=== PATIENT | female | born 1935 | race Caucasian/White ===

== ENCOUNTER → 2016-04-04 | Outpatient (CLI) | payer OTHER ==
[~2016-04-04] MED LIST: AMPH20CA3 PO; ASPI81TA28 PO; BROM0.07 OPL; BUPR-79 PO; BUPR100T8 PO; CHOL100010 PO; CLC100X PO; CLOB-65 EXT; CLOP1TAB15 PO; DRGTP75 TD; DYZ PO; FENT75DI17 TD; FLUO20CA35 PO; FLUO40CA8 PO; FURO-85 PO; ISOS60TA25 PO; LEVO125T72 PO; LISI-461 PO; LORA-741 PO; LSN25 PO; METO25TA3 PO; MRLP17 PO; NTRGSL/4 UT; NYST80OI TOP; POTA10CA28 PO; PRED1SUS OPL; PRLSR20 PO; SIMV40TA2 PO; TRAM-10 PO; TRIA0.1C20 TOP
--- NOTE | 2016-04-05 06:38 | PAP/PSG TECHNICIAN REPORT ---
[facility] Compressor Operator Adjuster Polysomnogram Report Study name: None Report date: 04/05/2016 Study date: 04/04/2016 Referring Physician: Mabel Witt M.D. Name: MICHEL RIVERA Interpreting Physician: Willam Witt M.D. Date of : 1935 Compressor Operator Adjuster: Kimberly Huynh [facility]. Sex: Female Age: 80 StudyType: PSG PAP Weight: 243 lbs Height: 80 years, Height 5' 2" Neck Circum: BMI: 44.44 Medications: nitroglycerin 0.4 mg, lisinopril 10 mg, fentanyl 75 mcg/hr, clopidogrel 75 mg, bupropion 150 mg, fluoxetine 20 mg, levothyroxine 125 mcg, omeprazole 20 mg, simvastatin 40 mg, tramadol 50 mg, lorazepam 0.5 mg, clobetasol propionate 0.05% ex oint, vit d 1000 units, triamcinolone acetonide 0.1% ex lotn, stool softener 100 mg, aspirin 81 mg, prozac 40 mg, isoorbide mononitrate 30 mg Patient History 80 yr-old female here for an updated CPAP treatment study to determine if patient needs supplemental oxygen. Patient has been on CPAP since 02/2014. Parameters Monitored NPSG: E1-M2, E2-M1, Fp1-M2, Fp2-M1, F3-M2, F4-M2, F4-M1, C3-M2, C4-M2, C4-M1, O1-M2, O2-M2, O2-M1, T3-M2, T4-M1, P3-M2, P4-M1, CHIN1, CHIN2, HR, EKG, Legs, PFLOW, SNOR, FLOW, CFLOW, Tidal Volume, THOR, ABDO, SpO2, PLTH, CPRESS, ETCO2 Wave, ETCO2, pH Sleep Architecture Sleep Stages Time at Lights Off 9:55:30 PM STAGES Time (min.) TST (%) Time at Lights On 5:44:00 AM Wake 53.5 -- Total Recording Time (TRT) 469.00 min. N1 69.5 17 Total Sleep Period (TSP) 459.5 min. N2 338.5 82 Total Sleep Time (TST) 415.0min. N3 0.0 0 Awake Time 53.5 min. REM 7.0 2 Wake after Sleep Onset 44.5 min. Sleep Efficiency (SE) 89 % Sleep Onset Latency (JACKIE) 9.0 min. Number of Stage 1 Shifts None Awakenings 35 Stage Changes 196 Number of REM periods 2 REM 7.0 2 REM Latency 372.0 min. NREM 408.0 98 Body Position Analysis Supine Right Left Side Prone Vertical Total Sleep Time (min.) 0.0 415.0 0.0 415.00 0.0 0.3 Total Sleep Time (%) 0% 100% 0% 100 0% N/A% Total Sleep Time REM (min.) 0.0 7.0 0.0 None 0.0 0.0 Total Sleep Time NREM (min.) 0.0 408.0 0.0 None 0.0 0.0 Intermittent Wake (min.) 0.0 53.2 0.0 None 0.0 0.3 Total Sleep Period (%) 0% None None None None None Arousals Myoclonus (PLM) * Events Count Index Events Count Index Spontaneous 50 7 Events Awake (PLMW) 31 34.8 Respiratory 0 0.0 Events Asleep w/ Arousal (PLMA) 36 5.2 PLM 35 5 Events Asleep w/o Arousal (PLMS) 42 6.1 Snoring 19 3 Total Asleep 78 11.3 Total 104 15 Total 109 14 Respiratory Analysis * CA OA MA CH H RERA Total Count 1 1 0 0 12 0 14 Index 0.1 0.1 0.0 0 1.7 0 2.0 Mean Duration 10.0 14.3 0.0 0.00 19.0 0.0 18.0 Longest Duration 10.0 14.3 0.0 0.00 0.0 0.0 38.7 Respiratory Event Summary Total Supine ~Supine Right Left Prone REM NREM Apneas Count 2 N/A 2 2 N/A N/A 0 2 Index 0.3 N/A 0 0.3 N/A N/A 0 0 Hypopneas (4% Desat) Count 12 N/A 12 12 N/A N/A 0 12 Index 1.7 N/A 2 1.7 N/A N/A 0.0 1.8 Apneas & All Hypopneas Count 14 N/A 14 14 N/A N/A 0 14 Index 2.0 N/A 2 2 N/A N/A 0.0 2.1 Respiratory Events (Evs Tech+All Hyp+RERA) Count 14 N/A 14 14 N/A N/A 0 14 Index 2.0 N/A 2 2.0 N/A N/A 0.0 2.1 Respiratory Related Arousal Count 0 N/A 0 0 N/A N/A 0 0 Index 0.0 N/A 0 0 N/A N/A 0 0 Snoring Analysis Supine Right Left Prone REM NREM Total Snore duration 3.7 min Snores count N/A 88 N/A N/A 0 88 88 Snore mean duration 2.5 Sec Snores index N/A 13 N/A N/A 0.0 12.9 12.7 TST with snoring (%) 0.9% Desaturation Event Summary: Minimum %SpO2 Event Count Mean/Min/Max Duration(sec.) Desaturation Index % Time In Bed > 90 36 18.6 / 8.0 / 52.5 7.9 58.8 86 - 90 2 14.5 / 13.3 / 15.8 0.6 41.2 81 - 85 0 N/A 0.0 0.0 76 - 80 0 N/A 0.0 0.0 71 - 75 0 N/A 0.0 0.0 66 - 70 0 N/A 0.0 0.0 61 - 65 0 N/A 0.0 0.0 56 - 60 0 N/A 0.0 0.0 51 - 55 0 N/A 0.0 0.0 < 50 0 N/A 0.0 0.0 Total REM NREM Awake <50% 0.0 min. 0.0 min. 0.0 min. 0.0 min. 51 - 60% 0.0 min. 0.0 min. 0.0 min. 0.0 min. 61 - 70% 0.0 min. 0.0 min. 0.0 min. 0.0 min. 71 - 80% 0.2 min. 0.0 min. 0.0 min. 0.2 min. 81 - 90% 190.8 min. 1.7 min. 176.5 min. 12.7 min. 91 - 100% 272.5 min. 5.3 min. 231.6 min. 35.7 min. Average 91 91 91 92 Minimum SpO2 60 89 87 60 Desaturation Event Index 4.6 0.0 4.6 6.7 # Desat. Events below 89% 6 N/A 5 1 Time(%) with Saturation below 89% 1.0 0.0 0.9 0.1 Time(min.) with Saturation below 89% 4.7 0.0 4.4 0.4 Heart Rate Analysis End Tidal CO2 Analysis Min (bpm) Max (bpm) Average (bpm) TSP (mins) % of TSP Awake 58 127 65 Above 55 mmHg 0.0 0.0 NREM 53 71 62 50-55 mmHg 415.0 100.0 REM 60 63 62 45-50 mmHg 0.0 0.0 Overall 53 71 62 40-45 mmHg 0.0 0.0 35-40 mmHg 0.0 0.0 30-35 mmHg 0.0 0.0 Average ETCO2 0.0 Supplemental O2 Values Minimum O2 level: None Value Start Time End Time Compressor Operator Adjuster Comments MS. Rivera slept in the righ position. No cardiac arrhythmia .PLMs noted. No bruxism noted. CPAP was initiated at +7 CMH2O and up-titrated to a level of +8 CMH2O no Cflex, which nearly eliminated all respiratory events and snoring. A small [employer] Simplus was used during titration.MS. Rivera awoke to use the restroom once during the night. MS. Rivera stated, that was a normal night, I usually get up more to pee. The final report will be interpreted and signed by a sleep physician. The completed physician report will then be placed in the patient medical record. Therapy Event: Therapy (cm H20) 7 8 Total Time at Pressure (min.) 41.9 426.6 TST at Pressure (min.) 31.9 383.1 # Periods 1 1 Sleep Onset (min.) 9.0 0.0 REM Onset (min.) N/A 339.1 Sleep Efficiency % 76 89 Wakefulness (%) 23.9 10.2 Wakefulness (min.) 10.0 43.5 NREM 1 (%) 21.5 14.2 NREM 1 (min.) 9.0 60.5 NREM 2 (%) 54.6 74.0 NREM 2 (min.) 22.9 315.6 NREM 3 (%) 0.0 0.0 NREM 3 (min.) 0.0 0.0 REM (%) 0.0 1.6 REM (min.) 0.0 7.0 # Arousals 9 95 Arousal Index 16.9 14.9 # Snore 7 81 Snore Index 13.2 12.7 AHI 9.4 1.4 AHI Supine N/A N/A AHI Non-Supine 9.4 1.4 NREM AHI 9.4 1.4 REM AHI N/A 0.0 RDI 9.4 1.4 # Obstructive 0 1 # Central Ap 0 1 # Mixed 0 0 # Hypopneas 5 7 RERAS 0 0 Total Respiratory Events 5 9 Time Below SpO2 89.00% (min.) 2.4 2.0 Mean NREM SpO2 (%) 90 91 Mean REM SpO2 (%) N/A 91 Mean Sleep SpO2 (%) 90 91 Min NREM SpO2 (%) 87 87 Min REM SpO2 (%) N/A 89 Position Supine (min.) 0.0 0.0 Position Non-supine (min.) 31.9 383.1 LM Index Sleep 5.6 11.7 LM Index NREM 5.6 12.0 LM Index REM N/A 0.0 Mean Heart Rate (bpm) 64 62 Min Heart Rate (bpm) 58 53
--- NOTE | 2016-04-16 16:43 | POLYSOMNOGRAPH REPORT ---
REFERRING PERSON: Dr. Mike Witt. SOOT BLOWER: Kimberly Huynh. Ms. Quiñones is a 80-year-old female sent to the sleep lab for a CPAP titration study. She has been on CPAP since February 2014. She has been using CPAP at a pressure of 7 at home. Multiple n.p.o. done on CPAP at a pressure of 7 with confirmed CPAP compliance, have suggested nocturnal hypoxemia. She is sent to the sleep lab for titration and oxygen titration if necessary. Her [place] sleepiness scale score on the evening of this study is not recorded. BMI is 44.44. Following the technical and digital specifications of the [place] [employer] (AASM) a standard diagnostic polysomnogram was performed monitoring EEG, EOG, EMG (chin and leg deviations), oxygen saturation, body position, digital video, respiratory effort and airflow.? The sleep Stage and event scoring was based on the AASM Manual for the Scoring of Sleep and Associated Events 2007 edition.? Apneas are defined as a drop in the peak thermal sensor excursion by >90% of baseline for at least 10 seconds.? Hypopneas were scored using the 4% oxygen desaturation rule (4A-Medicare) and a decrease in the nasal pressure excursions by >30% of baseline for at least 10 seconds.? Respiratory effort-related arousal (RERA's) is defined as a sequence of breaths lasting at least 10 seconds characterized by increasing respiratory effort or flattening of the nasal pressure waveform leading to an arousal from sleep when the sequence of breaths does not meet criteria for an apnea or hypopnea.? Apnea Hypopnea index (AHI) is defined as the number of apneas and hypopneas occurring in an hour of sleep.? Respiratory disturbance index (RDI) is defined as the number of apneas, hypopneas, and RERA's occurring in an hour of sleep. Ms. Quiñones's total sleep period time was 459.5 minutes. Total sleep time was 415 minutes. Sleep efficiency was 89%. Latency to sleep onset was 9 minutes with wake after sleep onset of 44.5 minutes. Total non-REM sleep time was 408 minutes. She spent 17% of that time in N1 sleep, 82% in N2 sleep and no time in N3 sleep. REM latency was prolonged at 372 minutes. Total REM sleep time was only 7 minutes or 2% of the recorded time. There were 104 cortical arousals from sleep. No respiratory arousals were noted, 35 periodic limb movement arousals were noted and 19 snoring arousals were noted. 58 arousals were spontaneous. There were 78 periodic limb movements noted on this test. Limb movement index was 11.3. Limb movement with arousal index was 5.2. There was 1 obstructive, 1 central and no mixed apneas on this titration. There were 12 hypopnea. Apnea-hypopnea index was 2. 88 snoring events were recorded. Total sleep time with snoring was 0.9%. Mean saturation was 91% with desaturations less than 89% for only 4.7 minutes of total recorded time. There was no cardiac ectopy noted on this study. During sleep, this patient's heart rate ranged from a low of 53 beats per minute to a high of 71 beats per minute. As stated above, this was a CPAP titration study. The titration was begun on a CPAP pressure of 7, which was what she used at home. Five hypopneas were noted on this pressure and then her pressure was increased to 8. She remained on a pressure of 8 for 383.1 minutes of sleep time. There were 7 minutes of REM sleep on this pressure, which was the entire REM sleep duration, none of which was supine. AHI and RDI on this pressure were both 1.4 and saturations on this pressure were only less than 89% for 2 minutes. IMPRESSION AND PLAN: A 80-year-old female who appears to do well on CPAP at a pressure of 8. This polysomnogram does not suggest nocturnal hypoxemia on this pressure.
== END | disposition home or self-care (01) ==
LOC: C.NEUR 21:00
PROVIDERS: ATTEND Family Medicine
DX: G47.33 Obstructive sleep apnea (adult) (pediatric) (principal)

== ENCOUNTER → 2016-10-01 | Day surgery (SDC) | payer OTHER ==
[2016-09-11 11:21] VITALS: Ht 162.6 cm; Wt 106.8 kg
[~2016-10-01] VITALS: Ht 162.6 cm; Wt 106.8 kg
[~2016-10-01] MED LIST changes: +500ML BSS 0.3ML EPI 1:1000PF IRRIG ONE; +ACETAMINOPHEN 325 MG TAB PO PRN; -AMPH20CA3 PO; +AMVISC PLUS 0.8ML SYRINGE INT OCU ONE; +ATROPINE SULFATE 0.1 MG/ML 5ML SYR IV PRN; +BRIMONIDINE TART 0.2% OP SOLN PER DROP CHARGE ONE; +BSS FLUSH ONE; -BUPR-79 PO; -CLOB-65 EXT; -DYZ PO; +ENDOCOAT 0.85ML SYRINGE INT OCU ONE; +EpHEDrine SULFATE INJ 50 MG/ML AMP IV PRN; +EpINEphrine INJ 1MG/ML AMP 1 MG/ML AMP ONE; -FENT75DI17 TD; +KETOROLAC 0.5% OP SOLN PER DROP CHARGE OPL SCH; +LACTATED RINGER'S 1000ML 500 ML IV SCH; +LIDOCAINE 4% OP SOLN DROP CHARGE ONE; +LIDOCAINE 4% OP SOLN DROP CHARGE OPL SCH; +LIDOCAINE HCL 1% MPF 2 ML VIAL ONE; -LSN25 PO; +MIDAZOLAM HCL 1 MG/ML 2ML VIAL ONE; +MOXIFLOXACIN OPH SOLN PER DROP CHARGE ONE; -MRLP17 PO; +ONDANSETRON INJ 2 MG/ML 2 ML VIAL IV PRN; +POVIDONE-IODINE OP SOLN 30 ML BTL ONE; +PROPARACAINE 0.5% OP SOLN PER DROP CHARGE OPL SCH; +TOBRAMYCIN/DEXAMETHASONE OPH OINT PER APPLN CHARGE ONE; -TRIA0.1C20 TOP; +[UNRECOGNIZED DRUG - REMARK] SCH
--- NOTE | 2016-10-01 08:00 | History & Physical Bridge - SC ---
H&P Re-Evaluation Bridge Note: I have examined the patient, reviewed the History & Physical and in the interval since the performance of the History & Physical I have noted the following changes of clinical significance: No changes noted
[2016-10-01] MEDS: PHENYLEPHRINE HCL 2.5% OP SOLN PER DROP CHARGE OPL SCH ×2 (08:01→08:06)
[2016-10-01] MEDS: TROPICAMIDE 1% OP SOLN PER DROP CHARGE OPL SCH ×2 (08:02→08:07)
[2016-10-01] MEDS: CYCLOPENTOLATE HCL 1% OP SOLN PER DROP CHARGE OPL SCH ×2 (08:03→08:08)
[2016-10-01] MEDS: MOXIFLOXACIN OPH SOLN PER DROP CHARGE OPL SCH ×2 (08:04→08:14)
--- NOTE | 2016-10-01 08:52 | Discharge Instructions-SurgCtr ---
Discharge Instructions Date of Service Oct 01, 2016. Visit Reason for Visit: Cataract Left Eye Discharge Discharge Diagnosis / Problem: cataract left eye Discharge Goals Goal(s): Improve function Medications Stopped Medications Name(s): Pt. was told not to take Plavix or ASA today. Activity Recommendations Activity Limitations: per Instructions/Follow-up section Lifting Limitations: no more than 5 pounds Anesthesia . Post Anesthesia Instructions: If you have had General Anesthesia or IV Sedation: * Do not drive today. * Resume driving when surgeon permits. * Do not make important decisions or sign legal documents today. * Call surgeon for: 1. Temperature elevations greater than 101 degrees F. 2. Uncontrollable pain. 3. Excessive bleeding. 4. Persistent nausea and vomiting. 5. Medication intolerance (nausea, vomiting or rash). * For nausea and vomiting use only clear liquids such as: tea, soda, bouillon until nausea subsides, then gradually increase diet as tolerated. * If you have any concerns or questions, call your surgeon's office. If physician is unavailable and it is an emergency, call 911 or go to the nearest emergency room. . Instructions / Follow-Up Instructions / Follow-Up ACTIVITY RECOMMENDATIONS: * Light activities * You may walk outside, read, watch television. * Mild irritation and blurred vision are common for the first few days, redness around the white part of the eye is common. MEDICATIONS: Resume previous medications unless instructed otherwise by your surgeon. Eye drops (today and tomorrow): Cipro - one drop in operative eye every 2 hours while awake Prednisolone 1% - one drop in operative eye every 2 hours while awake Prolensa - one drop operative eye 1 times daily SPECIAL CARE INSTRUCTIONS: * If any problems or concerns, please call Dr. Merritt's office at . * Keep plastic shield taped over eye to sleep at night. * Keep plastic shield taped over eye except to administer eye drops. * Keep plastic shield on until office visit the following day. FOLLOW UP VISIT: Follow-up with Dr. Merritt in the [place] office as scheduled. If not already scheduled, please call the office at . Diet Recommendations Home Diet: resume previous diet Procedures Procedures Performed: Left Cataract Phacoemulsification With Intraocular Lens Implant Pending Studies Studies pending at discharge: no Medical Emergencies . Who to Call and When: Medical Emergencies: If at any time you feel your situation is an emergency, please call 911 immediately. . Non-Emergent Contact Non-Emergency issues call your: Zipper Setter Lockstitch . . "Provider Documentation" section prepared by Oliver Merritt. .
--- NOTE | 2016-10-01 08:54 | [facility] Operative Report ---
Operative Report Operative Date Oct 01, 2016. Pre-Operative Diagnosis Left Eye Cataract Post-Operative Diagnosis same Procedure(s) Performed Left Cataract Phacoemulsification With Intraocular Lens Implant Surgeon Dr. Loulou Merritt Welding Tester Surgeon(s) 0 Estimated Blood Loss 0 Findings cataract left eye Fluids (cc crystalloids) see anesthesia record Specimens none Drains none Anesthesia local with sedation Complication(s) None Disposition Recovery Room / PACU Implants mx60 26.5 Indications decreased vision left eye Description of Procedure After informed consent was obtained in the holding area the patient was wheeled back to the operating room where cardiac monitoring leads and oxygen by nasal cannula was administered by Anesthesia. Gentle IV sedation was given, and the patient's left eye was prepped and draped in usual sterile fashion. A wire lid speculum was placed into the left eye and the operating microscope was swung into position. Using 0.12 forceps and a Supersharp blade a paracentesis port was made 3 o'clock hours away from the 3 o'clock position of the patient's left eye. 1% non-preserved Lidocaine was then injected into the anterior chamber for anesthesia. A 2.0 mm keratotome blade was then used to make a shelved clear corneal incision at the 3 o'clock position of the left eye. Amvisc was injected into the anterior chamber and a cystotome and Utrata forceps were used to perform a curvilinear capsulorrhexis. BSS on a hydrodissection cannula was used to hydrodissect the lens nucleus away from the capsular bag. The phacoemulsification handpiece was then used in a stop and chop fashion to remove the lens nucleus. The irrigation and aspiration handpiece was then used to remove the residual cortical material. Amvisc was injected into the capsular bag and anterior chamber and a Bausch & Lomb MX60 26.5 Diopter intraocular lens was injected into the capsular bag. Irrigation and aspiration handpiece was used to remove the residual viscoelastic material. The wounds were hydrated and noted to be watertight. The wire lid speculum was removed from the eye. Vigamox, Brimonidine, and TobraDex ointment were placed on the eye and it was shielded. It should be noted that EndoCoat was used extensively during the case to protect the cornea endothelium. DISPOSITION: The patient tolerated the procedure well and was wheeled to the post anesthesia care unit in stable condition. I attest to the content of the Intraoperative Record and any orders documented therein. Any exceptions are noted below. I attest to the content of the Intraoperative Record and any orders documented therein. Any exceptions are noted below.
[2016-10-01 09:00] VITALS: TEMP 36.5
[2016-10-01 09:22] VITALS: BP 137/64; PULSE 64; O2SAT 94
--- NOTE | 2016-10-01 09:24 | Anesthesia Progress Nt - [facility] ---
Anesthesia Post Op Note Date & Time Oct 01, 2016 at 09:23 Vital Signs Pain Intensity: 0 Vital Signs Past 12 Hours Date Time Temp Pulse Resp B/P (MAP) Pulse Ox O2 Delivery O2 Flow Rate FiO2 10/01/16 09:22 64 16 137/64 (88) 94 Room Air 10/01/16 09:00 36.5 62 16 135/84 (101) 93 Room Air 10/01/16 07:44 36.8 66 20 144/82 (102) 92 Room Air Notes Mental Status: alert / awake / arousable, participated in evaluation Pt Amnestic to Procedure: Yes Nausea / Vomiting: adequately controlled Pain: adequately controlled Airway Patency, RR, SpO2: stable & adequate BP & HR: stable & adequate Hydration State: stable & adequate Anesthetic Complications: no major complications apparent
== END | disposition home or self-care (01) ==
LOC: X.SURG 07:17
PROVIDERS: ATTEND Ophthalmology
DX: H25.12 Age-related nuclear cataract, left eye (principal); K21.9 Gastro-esophageal reflux disease without esophagitis; E07.9 Disorder of thyroid, unspecified; I10 Essential (primary) hypertension; I51.9 Heart disease, unspecified; Z79.899 Other long term (current) drug therapy

== ENCOUNTER → 2016-10-15 | Day surgery (SDC) | payer OTHER ==
[2016-10-11 13:27] VITALS: Ht 162.6 cm; Wt 106.8 kg
[~2016-10-15] VITALS: Ht 162.6 cm; Wt 106.8 kg
[~2016-10-15] MED LIST changes: -KETOROLAC 0.5% OP SOLN PER DROP CHARGE OPL SCH; -LIDOCAINE 4% OP SOLN DROP CHARGE OPL SCH; +LIDOCAINE 4% OP SOLN DROP CHARGE OPR SCH; -ONDANSETRON INJ 2 MG/ML 2 ML VIAL IV PRN; -PROPARACAINE 0.5% OP SOLN PER DROP CHARGE OPL SCH; +PROPARACAINE 0.5% OP SOLN PER DROP CHARGE OPR SCH; -[UNRECOGNIZED DRUG - REMARK] SCH
[2016-10-15] MEDS: PHENYLEPHRINE HCL 2.5% OP SOLN PER DROP CHARGE OPR SCH ×2 (09:26→09:31)
[2016-10-15] MEDS: TROPICAMIDE 1% OP SOLN PER DROP CHARGE OPR SCH ×2 (09:27→09:32)
[2016-10-15] MEDS: CYCLOPENTOLATE HCL 1% OP SOLN PER DROP CHARGE OPR SCH ×2 (09:28→09:33)
[2016-10-15] MEDS: KETOROLAC 0.5% OP SOLN PER DROP CHARGE OPR SCH ×2 (09:29→09:34)
[2016-10-15] MEDS: MOXIFLOXACIN OPH SOLN PER DROP CHARGE OPR SCH ×2 (09:30→09:42)
[2016-10-15 10:27] VITALS: TEMP 36.7
--- NOTE | 2016-10-15 10:27 | Discharge Instructions-SurgCtr ---
Discharge Instructions Date of Service Oct 15, 2016. Visit Reason for Visit: Cataract Right Eye Discharge Discharge Diagnosis / Problem: cataract right eye Discharge Goals Goal(s): Improve function Activity Recommendations Activity Limitations: per Instructions/Follow-up section Lifting Limitations: no more than 5 pounds Anesthesia . Post Anesthesia Instructions: If you have had General Anesthesia or IV Sedation: * Do not drive today. * Resume driving when surgeon permits. * Do not make important decisions or sign legal documents today. * Call surgeon for: 1. Temperature elevations greater than 101 degrees F. 2. Uncontrollable pain. 3. Excessive bleeding. 4. Persistent nausea and vomiting. 5. Medication intolerance (nausea, vomiting or rash). * For nausea and vomiting use only clear liquids such as: tea, soda, bouillon until nausea subsides, then gradually increase diet as tolerated. * If you have any concerns or questions, call your surgeon's office. If physician is unavailable and it is an emergency, call 911 or go to the nearest emergency room. . Instructions / Follow-Up Instructions / Follow-Up ACTIVITY RECOMMENDATIONS: * Light activities * You may walk outside, read, watch television. * Mild irritation and blurred vision are common for the first few days, redness around the white part of the eye is common. MEDICATIONS: Resume previous medications unless instructed otherwise by your surgeon. Eye drops (today and tomorrow): Cipro - one drop in operative eye every 2 hours while awake Prednisolone 1% - one drop in operative eye every 2 hours while awake Prolensa - one drop operative eye 1 times daily SPECIAL CARE INSTRUCTIONS: * If any problems or concerns, please call Dr. Merritt's office at . * Keep plastic shield taped over eye to sleep at night. * Keep plastic shield taped over eye except to administer eye drops. * Keep plastic shield on until office visit the following day. FOLLOW UP VISIT: Follow-up with Dr. Merritt in the [place] office as scheduled. If not already scheduled, please call the office at . Diet Recommendations Home Diet: resume previous diet Procedures Procedures Performed: Right Cataract Phacoemulsification With Intraocular Lens Implant Pending Studies Studies pending at discharge: no Medical Emergencies . Who to Call and When: Medical Emergencies: If at any time you feel your situation is an emergency, please call 911 immediately. . Non-Emergent Contact Non-Emergency issues call your: Beverage Inspection Machine Tender . . "Provider Documentation" section prepared by Oliver Merritt. .
--- NOTE | 2016-10-15 10:29 | [facility] Operative Report ---
Operative Report Operative Date Oct 15, 2016. Pre-Operative Diagnosis Right Eye Cataract Post-Operative Diagnosis Same Procedure(s) Performed Right Cataract Phacoemulsification With Intraocular Lens Implant Surgeon Dr Merritt Estimate Clerk Surgeon(s) None Estimated Blood Loss 0ml Findings cataract right eye Fluids (cc crystalloids) see anesthesia record Specimens None Drains none Anesthesia local with sedation Complication(s) None Disposition Recovery Room / PACU Implants mx60 26.0 Indications decreased vision right eye Description of Procedure After informed consent was obtained in the holding area the patient was wheeled back to the operating room where cardiac monitoring leads and oxygen by nasal cannula was administered by Anesthesia. Gentle IV sedation was given, and the patient's right eye was prepped and draped in usual sterile fashion. A wire lid speculum was placed into the right eye and the operating microscope was swung into position. Using 0.12 forceps and a Supersharp blade a paracentesis port was made 2 o'clock hours away from the 9 o'clock position of the patient's right eye. 1% non-preserved Lidocaine was then injected into the anterior chamber for anesthesia. A 2.0 mm keratotome blade was then used to make a shelved clear corneal incision at the 9 o'clock position of the right eye. Amvisc was injected into the anterior chamber and a cystotome and Utrata forceps were used to perform a curvilinear capsulorrhexis. BSS on a hydrodissection cannula was used to hydrodissect the lens nucleus away from the capsular bag. The phacoemulsification handpiece was then used in a stop and chop fashion to remove the lens nucleus. The irrigation and aspiration handpiece was then used to remove the residual cortical material. Amvisc was injected into the capsular bag and anterior chamber and a Bausch & Lomb MX60 26.0 Diopter intraocular lens was injected into the capsular bag. Irrigation and aspiration handpiece was used to remove the residual viscoelastic material. The wounds were hydrated and noted to be watertight. The wire lid speculum was removed from the eye. Vigamox, Brimonidine, and TobraDex ointment were placed on the eye and it was shielded. It should be noted that EndoCoat was used extensively during the case to protect the cornea endothelium. DISPOSITION: The patient tolerated the procedure well and was wheeled to the post anesthesia care unit in stable condition. I attest to the content of the Intraoperative Record and any orders documented therein. Any exceptions are noted below. I attest to the content of the Intraoperative Record and any orders documented therein. Any exceptions are noted below.
[2016-10-15 10:52] VITALS: BP 138/75; PULSE 62; O2SAT 97
--- NOTE | 2016-10-15 11:01 | Anesthesia Progress Nt - [facility] ---
Anesthesia Post Op Note Date & Time Oct 15, 2016 at 10:59 Vital Signs Pain Intensity: 0 Vital Signs Past 12 Hours Date Time Temp Pulse Resp B/P (MAP) Pulse Ox O2 Delivery O2 Flow Rate FiO2 10/15/16 10:52 62 18 138/75 (96) 97 Room Air 10/15/16 10:27 36.7 57 18 131/77 (95) 99 Room Air 10/15/16 09:17 36.9 61 18 120/74 (89) 95 Room Air Notes Mental Status: alert / awake / arousable, participated in evaluation Pt Amnestic to Procedure: No Nausea / Vomiting: adequately controlled Pain: adequately controlled Airway Patency, RR, SpO2: stable & adequate BP & HR: stable & adequate Hydration State: stable & adequate Anesthetic Complications: no major complications apparent Non distressing recall as discussed preop. Patient did have some bleeding on to her shirt from a missed IV placed preop. The site had been appropriately dressed and there was some mild non painful bleeding around it. We did offer to pay her drycleaning which she declined.
== END | disposition home or self-care (01) ==
LOC: X.SURG 08:54
PROVIDERS: ATTEND Ophthalmology
DX: H25.11 Age-related nuclear cataract, right eye (principal); E07.9 Disorder of thyroid, unspecified; K21.9 Gastro-esophageal reflux disease without esophagitis; I51.9 Heart disease, unspecified; Z79.899 Other long term (current) drug therapy; Z79.82 Long term (current) use of aspirin

== ENCOUNTER 2016-12-05 16:33 | Emergency (ER) | payer OTHER ==
[~2016-12-05] VITALS: Ht 162.6 cm; Wt 109.9 kg
[~2016-12-05 16:33] MED LIST changes: -500ML BSS 0.3ML EPI 1:1000PF IRRIG ONE; -ACETAMINOPHEN 325 MG TAB PO PRN; -AMVISC PLUS 0.8ML SYRINGE INT OCU ONE; -ATROPINE SULFATE 0.1 MG/ML 5ML SYR IV PRN; -BRIMONIDINE TART 0.2% OP SOLN PER DROP CHARGE ONE; -BSS FLUSH ONE; -ENDOCOAT 0.85ML SYRINGE INT OCU ONE; -EpHEDrine SULFATE INJ 50 MG/ML AMP IV PRN; -EpINEphrine INJ 1MG/ML AMP 1 MG/ML AMP ONE; -LACTATED RINGER'S 1000ML 500 ML IV SCH; -LIDOCAINE 4% OP SOLN DROP CHARGE ONE; -LIDOCAINE 4% OP SOLN DROP CHARGE OPR SCH; -LIDOCAINE HCL 1% MPF 2 ML VIAL ONE; -MIDAZOLAM HCL 1 MG/ML 2ML VIAL ONE; -MOXIFLOXACIN OPH SOLN PER DROP CHARGE ONE; -POVIDONE-IODINE OP SOLN 30 ML BTL ONE; -PROPARACAINE 0.5% OP SOLN PER DROP CHARGE OPR SCH; -TOBRAMYCIN/DEXAMETHASONE OPH OINT PER APPLN CHARGE ONE
[2016-12-05 16:39] VITALS: TEMP 36.9; Ht 162.6 cm; Wt 109.9 kg
[2016-12-05] MEDS ORDERED: OXYCODONE HCL IR 5 MG TAB (IMMEDIATE RELEASE) PO STA (16:52)
--- NOTE | 2016-12-05 17:07 | EMERGENCY ROOM VISIT NOTE ---
History Report prepared by Radha: Kaci Vera Under the Supervision of: Dr. Wali Zuleta D.O. 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 She put her crutch down and turned around to hang her keys up. While she was turning back around she felt herself started to lose her balance. She tried to hold onto a nearby small table which was wobbly and she fell to the ground. The table hit the top of her head. She fell onto her right side. She reports right shoulder pain which goes up into her neck and down her arm. She reports right knee pain and left hand pain. She denies any LOC, left shoulder pain, left knee pain, right hand pain, or chest pain. 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 Pt denies left shoulder pain, left knee pain, or right hand pain. Review of Systems See HPI for pertinent positives & negatives. A total of 10 systems reviewed and were otherwise negative. Past Medical & Surgical Surgical Problems: (1) History of cholecystectomy Family History Hypertension Social History Smoking Status: Never Smoker Alcohol Use: none Drug Use: none Marital Status: Housing Status: lives alone Occupation Status: retired Current/Historical Medications Scheduled Aspirin (Aspirin Ec), 81 MG PO QAM Bupropion (Wellbutrin Sr), 100 MG PO QAM Cholecalciferol (Vitamin D), 1,000 UNIT PO QAM Clopidogrel (Plavix), 75 MG PO QAM Docusate Sodium (Colace), 1 CAP PO BID Fentanyl (Fentanyl), 1 PATCH TD [id number] Fluoxetine (Prozac), 40 MG PO QAM Fluoxetine (Prozac), 20 MG PO QPM Furosemide (Lasix), 20 MG PO QAM Isosorbide Mononitrate Ext Rel (Imdur Ext Rel), 60 MG PO QAM Levothyroxine Sodium (Synthroid), 125 MCG PO QAM Lisinopril (Zestril), 10 MG PO QAM Metoprolol Succ (Toprol Xl) (Toprol-Xl), 12.5 MG PO QAM Nitroglycerin (Nitrostat), 0.4 MG UT PRN Omeprazole (Prilosec), 20 MG PO QAM Potassium Chloride (Micro-K Ext Rel), 10 MEQ PO QAM Simvastatin (Zocor), 40 MG PO QPM Scheduled PRN Lorazepam (Ativan), 0.5 MG PO BID PRN for ANXIETY Nystatin (Topical) (Nystatin), 1 APPLN TOP BID PRN for GMG Tramadol (Ultram), 50 MG PO Q6HR PRN for Pain Allergies Coded Allergies: NSAIDs (Verified Allergy, Unknown, IBUPROFEN/SULINDAC, 12/05/16) Promethazine (Verified Adverse Reaction, Unknown, "MADE ME WANT TO JUMP OUT OF MY SKIN", 12/05/16) Physical Exam Vital Signs Date Time Temp Pulse Resp B/P (MAP) Pulse Ox O2 Delivery O2 Flow Rate FiO2 12/05/16 18:38 88 16 128/97 98 Room Air 12/05/16 16:39 36.9 71 18 135/95 95 Room Air Physical Exam GENERAL: Patient is awake, alert, and in no acute distress. Patient is resting comfortably and showing no signs of anxiety EYES: The conjunctivae are clear. The pupils are round and reactive. EARS, NOSE, MOUTH AND THROAT: The nose is without any evidence of any deformity. Mucous membranes are moist tongue is midline NECK: Right paravertebral cervical spine tenderness to palpation. ROM appeared intact. RESPIRATORY: Normal respiratory effort is noted there is no evidence of wheezing rhonchi or rales CARDIOVASCULAR: Regular rate and rhythm noted there no murmurs rubs or gallops normal S1 normal S2 GASTROINTESTINAL: The abdomen is soft. Bowel sounds are present in all quadrants. Abdomen is nontender BACK: No midline tenderness or or step-off noted range of motion in flexion extension as well as rotation no signs of muscle spasm noted MUSCULOSKELETAL/EXTREMITIES: Tenderness with ROM of the right shoulder. Tenderness on the lateral aspect of the right shoulder. No deformity noted. Ecchymosis over the left index and middle fingers. No significant deformity noted. Tenderness over the right proximal tibia. No significant swelling or erythema noted. SKIN: There is no obvious evidence of any rash. There are no petechiae, pallor or cyanosis noted. NEUROLOGIC: Patient is awake alert and oriented x3 Medical Decision & Procedures ER Provider Diagnostic Interpretation: X-ray results as stated below per interpretation by me and the radiologist. Radiology results as stated below per my review and radiologist interpretation: TWO VIEW CHEST CLINICAL HISTORY: Fall. FINDINGS: PA and lateral chest radiographs are compared to study dated 01/01/2013. The PA view is degraded by patient rotation. The heart is mildly enlarged and there is atherosclerotic calcification of the thoracic aorta. The pulmonary vasculature is noncongested. Chronic interstitial thickening is similar to previous. Bibasilar atelectasis is observed. No airspace consolidation, large pleural effusion, or pneumothorax is identified. The skeletal structures are osteopenic. The bony thorax is grossly intact. Degenerative change and scoliosis are noted in the thoracic spine. IMPRESSION: Cardiomegaly with no acute cardiopulmonary abnormality. Electronically signed by: Michael Morrison M.D. 12/05/2016 5:45 PM Dictated Date/Time: 12/05/2016 5:43 PM LEFT HAND 3 VIEWS CLINICAL HISTORY: Fall with left hand pain. FINDINGS: 3 views of the left hand are compared to study dated 01/04/2012. The skeletal structures are osteopenic. There is no radiographic evidence of left hand fracture. Advanced degenerative narrowing is seen at the radiocarpal articulation. There is moderate osteoarthritic change present at the first carpometacarpal and metacarpophalangeal joints. Mild osteoarthritic change is present involving the interphalangeal joints. No erosive change is seen. Mild dorsal soft tissue swelling is noted. IMPRESSION: 1. Mild dorsal soft tissue swelling with no radiographic evidence of left hand fracture. 2. Osteopenia and arthritic change as above. Electronically signed by: Michael Morrison M.D. 12/05/2016 5:48 PM Dictated Date/Time: 12/05/2016 5:46 PM RIGHT SHOULDER 3 VIEWS HISTORY: Right shoulder pain. fall COMPARISON: None. FINDINGS: There is no fracture or dislocation. Soft tissues are unremarkable. No radiopaque foreign bodies. The right clavicle is intact. Moderate degenerative changes within the right shoulder. IMPRESSION: No fracture or dislocation within the right shoulder. Electronically signed by: Taras Woods M.D. 12/05/2016 5:46 PM Dictated Date/Time: 12/05/2016 5:45 PM RIGHT KNEE 2 VIEWS CLINICAL HISTORY: Fall with right knee pain. FINDINGS: AP and crosstable lateral views of the right knee are obtained. No prior studies are available for comparison at the time of dictation. The skeletal structures are osteopenic. No fracture is seen. There is moderate to advanced tricompartmental degenerative joint space narrowing, greatest in the medial and patellofemoral compartments. There is near complete loss of the medial joint space with associated bony sclerosis. There are large marginal osteophytes and patellar enthesophytes. A calcified fabella is incidentally noted. There is no significant joint effusion. Mild soft tissue swelling is present around the knee. IMPRESSION: 1. Soft tissue swelling with no radiographic evidence of right knee fracture. 2. Osteopenia with advanced arthritic change as above. Electronically signed by: Michael Morrison M.D. 12/05/2016 5:46 PM Dictated Date/Time: 12/05/2016 5:[address] SCAN OF THE BRAIN WITHOUT IV CONTRAST CLINICAL HISTORY: Fall. COMPARISON STUDY: CT of the brain dated 01/03/2017. TECHNIQUE: Unenhanced axial CT scan of the brain is performed from the vertex to the skull base. CT DOSE: 984.96 mGy.cm FINDINGS: Brain parenchyma: There are age-related involutional changes noting mild subcortical and periventricular microangiopathic change. There is no hemorrhage, mass effect, or evidence of acute territorial ischemia by CT criteria. Anderson-white matter is preserved. No extra-axial fluid collection is seen. Ventricles, sulci, cisterns: Prominent secondary to involutional change. Intracranial vasculature: There is atherosclerotic calcification of the cavernous carotid arteries. Calvarium: The skeletal structures are osteopenic. There is no depressed calvarial fracture. Sinuses and mastoids: The visualized paranasal sinuses are clear. The mastoid air cells are well pneumatized. Orbits: The bony orbits are grossly intact. There are bilateral ocular lens implants. IMPRESSION: There is no hemorrhage, mass effect, or evidence of acute territorial ischemia by CT criteria. Electronically signed by: Michael Morrison M.D. 12/05/2016 6:15 PM Dictated Date/Time: 12/05/2016 6:[address] DOSE: HISTORY: Neck pain. fall TECHNIQUE: Multiaxial CT images of the cervical spine were performed and reformatted in the sagittal and coronal plane without the use of contrast. A dose lowering technique was utilized adhering to the principles of ALARA. COMPARISON: None. FINDINGS: No fractures. No subluxation. Prevertebral soft tissues and the C1-C2 interval are intact. No pneumothorax. Straightening of the cervical spine. Moderate to severe degenerative disc disease throughout the majority of the cervical spine. Moderate facet osteoarthritis within the upper cervical spine. IMPRESSION: No fractures within the cervical spine. Electronically signed by: Taras Woods M.D. 12/05/2016 6:23 PM Dictated Date/Time: 12/05/2016 6:15 PM Medications Administered Medications (Trade) Dose Ordered Sig/Yoli Route Start Time Stop Time Status Last Admin Dose Admin Oxycodone HCl (Roxicodone Immediate Rel Tab) 5 mg NOW STAT PO 12/05/16 16:52 12/05/16 16:54 DC 12/05/16 17:19 5 MG ED Course 1648: The patient was evaluated in room A4B. A complete history and physical examination were performed. 165: Oxycodone HCl 5 mg PO. 1830: Upon reevaluation, the patient is resting comfortably. I discussed the results and treatment plan with her. She verbalized agreement of the treatment plan. She was discharged home. Medical Decision Prior records/ancillary studies reviewed. Triage Nursing notes reviewed. Additional history obtained from family. The patient's history was concerning for traumatic injury Differential diagnosis: Etiologies such as fracture, dislocation, intra-abdominal, pneumothorax, intrathoracic , intracranial, neurologic, as well as other traumatic pathologies were entertained. The patient is an 81-year-old female who presented to the emergency department with her daughter for evaluation of injury after fall. The patient suffered a mechanical fall. She fell forward hurting her right upper extremity her head as well as her neck. The patient was treated with pain medication in the emergency department. I discussed the patient's radiographic studies with her. She did not appear to have any significant bony injury on radiographic studies. The patient was encouraged to rest and avoid any strenuous activity. She was also encouraged to call her primary care physician in the morning to schedule a follow-up appointment. She was also encouraged to return to the emergency department immediately if symptoms change worsen or if the need arises. Head Trauma GCS Score: 15 Medication Reconcilliation Current Medication List: was personally reviewed by me Blood Pressure Screening Patient's blood pressure: Elevated blood pressure Blood pressure disposition: Elevated BP felt to be situational Impression Primary Impression: Fall Additional Impressions: Shoulder contusion Head injury Hand contusion Knee contusion Scribe Attestation The scribe's documentation has been prepared under my direction and personally reviewed by me in its entirety. I confirm that the note above accurately reflects all work, treatment, procedures, and medical decision making performed by me. Departure Information Dispostion Home / Self-Care Referrals Surya Fowler M.D. (PCP) Forms HOME CARE DOCUMENTATION FORM, IMPORTANT VISIT INFORMATION Patient Instructions ED Contusion Shoulder, My [facility] Additional Instructions Call your family to schedule follow-up appointment. Rest and avoid any strenuous activity. Continue all medications as prescribed. Problem Qualifiers Primary Impression: Fall Encounter type: initial encounter Qualified Codes: W19.XXXA - Unspecified fall, initial encounter Additional Impressions: Shoulder contusion Encounter type: initial encounter Laterality: right Qualified Codes: S40.011A - Contusion of right shoulder, initial encounter Head injury Encounter type: initial encounter Qualified Codes: S09.90XA - Unspecified injury of head, initial encounter Hand contusion Encounter type: initial encounter Laterality: left Qualified Codes: S60.222A - Contusion of left hand, initial encounter Knee contusion Encounter type: initial encounter Laterality: right Qualified Codes: S80.01XA - Contusion of right knee, initial encounter
[2016-12-05] MEDS ORDERED: DOCU-94 PO (17:19)
[2016-12-05] MEDS ORDERED: FENT75DI2 TD (17:19)
--- NOTE | 2016-12-05 17:46 | DIAGNOSTIC IMAGING REPORT ---
TWO VIEW CHEST CLINICAL HISTORY: Fall. FINDINGS: PA and lateral chest radiographs are compared to study dated 01/01/2013. The PA view is degraded by patient rotation. The heart is mildly enlarged and there is atherosclerotic calcification of the thoracic aorta. The pulmonary vasculature is noncongested. Chronic interstitial thickening is similar to previous. Bibasilar atelectasis is observed. No airspace consolidation, large pleural effusion, or pneumothorax is identified. The skeletal structures are osteopenic. The bony thorax is grossly intact. Degenerative change and scoliosis are noted in the thoracic spine. IMPRESSION: Cardiomegaly with no acute cardiopulmonary abnormality. Electronically signed by: Michael Morrison M.D. 12/05/2016 5:45 PM Dictated Date/Time: 12/05/2016 5:43 PM
--- NOTE | 2016-12-05 17:47 | DIAGNOSTIC IMAGING REPORT ---
RIGHT KNEE 2 VIEWS CLINICAL HISTORY: Fall with right knee pain. FINDINGS: AP and crosstable lateral views of the right knee are obtained. No prior studies are available for comparison at the time of dictation. The skeletal structures are osteopenic. No fracture is seen. There is moderate to advanced tricompartmental degenerative joint space narrowing, greatest in the medial and patellofemoral compartments. There is near complete loss of the medial joint space with associated bony sclerosis. There are large marginal osteophytes and patellar enthesophytes. A calcified fabella is incidentally noted. There is no significant joint effusion. Mild soft tissue swelling is present around the knee. IMPRESSION: 1. Soft tissue swelling with no radiographic evidence of right knee fracture. 2. Osteopenia with advanced arthritic change as above. Electronically signed by: Michael Morrison M.D. 12/05/2016 5:46 PM Dictated Date/Time: 12/05/2016 5:45 PM
--- NOTE | 2016-12-05 17:48 | DIAGNOSTIC IMAGING REPORT ---
RIGHT SHOULDER 3 VIEWS HISTORY: Right shoulder pain. fall COMPARISON: None. FINDINGS: There is no fracture or dislocation. Soft tissues are unremarkable. No radiopaque foreign bodies. The right clavicle is intact. Moderate degenerative changes within the right shoulder. IMPRESSION: No fracture or dislocation within the right shoulder. Electronically signed by: Taras Woods M.D. 12/05/2016 5:46 PM Dictated Date/Time: 12/05/2016 5:45 PM
--- NOTE | 2016-12-05 17:50 | DIAGNOSTIC IMAGING REPORT ---
LEFT HAND 3 VIEWS CLINICAL HISTORY: Fall with left hand pain. FINDINGS: 3 views of the left hand are compared to study dated 01/04/2012. The skeletal structures are osteopenic. There is no radiographic evidence of left hand fracture. Advanced degenerative narrowing is seen at the radiocarpal articulation. There is moderate osteoarthritic change present at the first carpometacarpal and metacarpophalangeal joints. Mild osteoarthritic change is present involving the interphalangeal joints. No erosive change is seen. Mild dorsal soft tissue swelling is noted. IMPRESSION: 1. Mild dorsal soft tissue swelling with no radiographic evidence of left hand fracture. 2. Osteopenia and arthritic change as above. Electronically signed by: Michael Morrison M.D. 12/05/2016 5:48 PM Dictated Date/Time: 12/05/2016 5:46 PM
--- NOTE | 2016-12-05 18:16 | DIAGNOSTIC IMAGING REPORT ---
CT SCAN OF THE BRAIN WITHOUT IV CONTRAST CLINICAL HISTORY: Fall. COMPARISON STUDY: CT of the brain dated 01/03/2017. TECHNIQUE: Unenhanced axial CT scan of the brain is performed from the vertex to the skull base. CT DOSE: 984.96 mGy.cm FINDINGS: Brain parenchyma: There are age-related involutional changes noting mild subcortical and periventricular microangiopathic change. There is no hemorrhage, mass effect, or evidence of acute territorial ischemia by CT criteria. Anderson-white matter is preserved. No extra-axial fluid collection is seen. Ventricles, sulci, cisterns: Prominent secondary to involutional change. Intracranial vasculature: There is atherosclerotic calcification of the cavernous carotid arteries. Calvarium: The skeletal structures are osteopenic. There is no depressed calvarial fracture. Sinuses and mastoids: The visualized paranasal sinuses are clear. The mastoid air cells are well pneumatized. Orbits: The bony orbits are grossly intact. There are bilateral ocular lens implants. IMPRESSION: There is no hemorrhage, mass effect, or evidence of acute territorial ischemia by CT criteria. Electronically signed by: Michael Morrison M.D. 12/05/2016 6:15 PM Dictated Date/Time: 12/05/2016 6:09 PM
--- NOTE | 2016-12-05 18:25 | DIAGNOSTIC IMAGING REPORT ---
CERVICAL SPINE CT CT DOSE: HISTORY: Neck pain. fall TECHNIQUE: Multiaxial CT images of the cervical spine were performed and reformatted in the sagittal and coronal plane without the use of contrast. A dose lowering technique was utilized adhering to the principles of ALARA. COMPARISON: None. FINDINGS: No fractures. No subluxation. Prevertebral soft tissues and the C1-C2 interval are intact. No pneumothorax. Straightening of the cervical spine. Moderate to severe degenerative disc disease throughout the majority of the cervical spine. Moderate facet osteoarthritis within the upper cervical spine. IMPRESSION: No fractures within the cervical spine. Electronically signed by: Taras Woods M.D. 12/05/2016 6:23 PM Dictated Date/Time: 12/05/2016 6:15 PM
[2016-12-05 18:38] VITALS: BP 128/97; PULSE 88; O2SAT 98
== END 2016-12-05 18:44 | disposition home or self-care (01) ==
LOC: C.EDB 16:35 → C.EDA 18:44
DX: S40.012A Contusion of left shoulder, initial encounter (principal); S09.90XA Unspecified injury of head, initial encounter; S60.221A Contusion of right hand, initial encounter; S80.01XA Contusion of right knee, initial encounter; W19.XXXA Unspecified fall, initial encounter; Z90.49 Acquired absence of other specified parts of digestive tract; Z79.82 Long term (current) use of aspirin; Z79.899 Other long term (current) drug therapy; Z82.49 Family history of ischemic heart disease and other diseases of the circulatory system; Z88.8 Allergy status to other drugs, medicaments and biological substances

== ENCOUNTER 2017-02-17 21:26 | Inpatient (IN) | payer OTHER ==
[~2017-02-17] VITALS: Ht 162.6 cm; Wt 108.6 kg
[~2017-02-17 21:26] MED LIST changes: -BROM0.07 OPL; -CLC100X PO; +DOCU-94 PO; -DRGTP75 TD; +FENT75DI2 TD; -PRED1SUS OPL
[2017-02-17] MEDS ORDERED: ONDANSETRON INJ 2 MG/ML 2 ML VIAL IV STA ×2 (21:55→22:21)
[2017-02-17] MEDS ORDERED: MoRPHine SULFATE 4 MG/ML 1 ML CARP\\VIAL IV STA (21:55)
[2017-02-17 22:09] LABS: BASO % 0.2 %; BASO ABS # 0.02 K/uL (0-0.2); EOS % 0.5 %; EOS ABS # 0.06 K/uL (0-0.5); HEMATOCRIT 39.6 % (37-47); HEMOGLOBIN 12.9 g/dL (12.0-16.0); IG# 0.03 K/uL (0.00-0.02); LYMPH % 16.8 %; LYMPH ABS # 2.12 K/uL (1.2-3.4); MEAN CORPUSCULAR HEMOGLOBIN 31.9 pg (25-34); MEAN CORPUSCULAR HGB CONC 32.6 g/dl (32-36); MEAN PLATELET VOLUME 9.8 fL (7.4-10.4); MONO % 6.9 %; MONO ABS # 0.87 K/uL (0.11-0.59); NEUT % 75.4 %; PLATELET COUNT 225 K/uL (130-400); RED CELL DISTRIBUTION WIDTH CV 13.9 % (11.5-14.5); RED CELL DISTRIBUTION WIDTH SD 49.9 fL (36.4-46.3)
[2017-02-17] MEDS ORDERED: CLOB-77 TOP (22:12)
[2017-02-17] MEDS ORDERED: FNTTP50 TD (22:13)
[2017-02-17] MEDS ORDERED: DRGTP12 TOP (22:19)
[2017-02-17] MEDS ORDERED: FENTANYL CITRATE INJ 50 MCG/1 ML 2 ML VIAL IV STA (22:21)
[2017-02-17] MEDS ORDERED: GABA-112 PO (22:21)
[2017-02-17] MEDS ORDERED: CYAN10005 PO (22:29)
[2017-02-17 22:32] LABS: ALBUMIN 3.8 gm/dl (3.4-5.0); ALT/SGPT 16 U/L (12-78); BLOOD UREA NITROGEN 21 mg/dl (7-18); CALCIUM 9.6 mg/dl (8.5-10.1); CARBON DIOXIDE 24 mmol/L (21-32); CREATININE 1.02 mg/dl (0.60-1.20); GLUCOSE 150 mg/dl (70-99); LIPASE 86 U/L (73-393); SODIUM 141 mmol/L (136-145)
[2017-02-17 22:35] LABS: ALKALINE PHOSPHATASE 80 U/L (45-117); AST/SGOT 11 U/L (15-37); TOTAL PROTEIN 7.3 gm/dl (6.4-8.2)
--- NOTE | 2017-02-17 22:44 | DIAGNOSTIC IMAGING REPORT ---
ABD/PELVIS WITHOUT FOR STONE CT DOSE: 2081.34 mGy.cm HISTORY: Flank pain right flank pain eval for stone TECHNIQUE: Multiaxial CT images of the abdomen and pelvis were performed without the use of intravenous and oral contrast according to the standard department stone protocol. A dose lowering technique was utilized adhering to the principles of ALARA. COMPARISON STUDY: 01/01/2013 FINDINGS: Mild bibasilar dependent atelectasis. Probable early hepatic cirrhotic change. No evidence for ascites or significant varices. The adrenal glands are unremarkable. Pancreas is uniform. Kidneys show moderate cortical scarring bilaterally. Punctate nonobstructing left renal calcifications are similar to the prior study. Patient has developed moderate right renal hydronephrosis and hydroureter hydroureter. There is a 5 mm obstructing calculus mid right ureter is trace amount of right perinephric fluid and infiltrative change. The more distal aspects of the right ureter are unremarkable. Bladder is midline. There are no contained calcifications. There are findings of moderate chronic sigmoid diverticulosis. There is no evidence for acute diverticulitis. There is no evidence for free air or abscess collection or obstructive change. Graph there is a fixed hiatal hernia. IMPRESSION: 1. Obstructing 5 mm calcification mid right ureter. 2. Moderate right hydroureteronephrosis with a trace amount of perinephric infiltrative change. 3. Nonobstructing punctate calcification left kidney. 4. Chronic sigmoid diverticulosis with no evidence for acute diverticulitis. The above report was generated using voice recognition software. It may contain grammatical, syntax or spelling errors. Electronically signed by: Surya Larsen M.D. 02/17/2017 10:42 PM Dictated Date/Time: 02/17/2017 10:39 PM
[2017-02-18] VITALS (12 sets, daily range): BP systolic 98–173; BP diastolic 55–84; PULSE 48–84; TEMP 36.7–38.4; O2SAT 92–96; Ht 162.6 cm; Wt 108.6 kg
[2017-02-18] MEDS ORDERED: ONDANSETRON INJ 2 MG/ML 2 ML VIAL IV PRN (00:15)
[2017-02-18] MEDS ORDERED: LORAZEPAM 0.5 MG TAB PO PRN (00:15)
[2017-02-18] MEDS ORDERED: FENTANYL 50 MCG/HR TDSY TD SCH (00:15)
[2017-02-18] MEDS ORDERED: METOCLOPRAMIDE HCL INJ 5 MG/ML 2 ML VIAL IV PRN (00:15)
[2017-02-18] MEDS ORDERED: FENTANYL 12 MCG/HR TDSY TD SCH (00:15)
--- NOTE | 2017-02-18 00:27 | History and Physical ---
History & Physical Date & Time of Service: Feb 18, 2017 at 00:17 Chief Complaint: Ureteral Stone Primary Care Physician: Surya Fowler M.D. History of Present Illness Source: patient, clinic records 81 year old female with history of CAD, Mild Aortic Stenosis, other problems below presenting with right flank and abdominal pain starting today. Follows with Dr. Fowler for PCP and RAZ Regan for Cardiology. Patient was doing fine until this afternoon when she started to have intense sharp pain on the right flank pain region. Through the day, the pain worsened and also involved the RLQ region, associated with nausea and chills. Denies dysuria, oliguria, hematuria. At the ER, CT abdomen showed: 1. Obstructing 5 mm calcification mid right ureter. 2. Moderate right hydroureteronephrosis with a trace amount of perinephric infiltrative change. 3. Nonobstructing punctate calcification left kidney. She was given Morphine and Zofran. On exam, patient reports symptoms are starting to improve since medications were given. Denies chest pain, dyspnea, dizziness, palpitations, etc. Past Medical/Surgical History Surgical Problems: (1) History of cholecystectomy Status: Resolved Family History Hypertension Social History Smoking Status: Never Smoker Drug Use: none Marital Status: Occupational Status: retired Immunizations History of Influenza Vaccine: Yes Influenza Vaccine Date: Oct 27, 2008 History of Tetanus Vaccine?: UTD Tetanus Immunization Date: Feb 07, 2007 History of Pneumococcal: Yes Pneumococcal Date: Dec 20, 1998 History of Hepatitis B Vaccine: No Multi-Drug Resistant Organisms History of MDRO: No Allergies Coded Allergies: NSAIDs (Verified Allergy, Unknown, IBUPROFEN/SULINDAC, 02/17/17) Promethazine (Verified Adverse Reaction, Unknown, "MADE ME WANT TO JUMP OUT OF MY SKIN", 02/17/17) Home Medications Scheduled Aspirin (Aspirin Ec), 81 MG PO QAM Bupropion (Wellbutrin Sr), 100 MG PO QAM Cholecalciferol (Vitamin D), 2,000 UNIT PO DAILY Clobetasol Propionate (Temovate), 1 APPLN TOP BID Clopidogrel (Plavix), 75 MG PO QAM Cyanocobalamin (Vitamin B-12), 1,000 MCG PO DAILY Docusate Sodium (Colace), 100 MG PO BID Fentanyl (Duragesic), 50 MCG TD CQ72HR Fentanyl (Fentanyl), 12.5 MCG TOP Q3D Fluoxetine (Prozac), 40 MG PO QAM Fluoxetine (Prozac), 20 MG PO QPM Furosemide (Lasix), 20 MG PO QAM Gabapentin (Neurontin), 100 MG PO TID Isosorbide Mononitrate Ext Rel (Imdur Ext Rel), 60 MG PO QAM Levothyroxine Sodium (Synthroid), 125 MCG PO QAM Lisinopril (Zestril), 10 MG PO QAM Metoprolol Succ (Toprol Xl) (Toprol-Xl), 25 MG PO QAM Nitroglycerin (Nitrostat), 0.4 MG UT PRN Omeprazole (Prilosec), 20 MG PO QAM Potassium Chloride (Micro-K Ext Rel), 10 MEQ PO QAM Simvastatin (Zocor), 40 MG PO HS Scheduled PRN Lorazepam (Ativan), 0.5 MG PO BID PRN for ANXIETY Tramadol (Ultram), 50 MG PO Q6HR PRN for Pain Review of Systems Constitutional- no fever; no weight loss Eyes- no acute visual changes ENT- no sinus drainage; no pharyngitis Pulmonary- no cough, no wheezing, no shortness of breath Cardiac- no chest pain, no palpitations, no orthopnea, no dependent edema GI-as above -as above Musculoskeletal- no arthralgias, no myalgias Derm- no rashes, no new skin lesions, no changing skin lesions Hematologic- no unusual bruising, no unusual bleeding Lymphatics- no adenopathy Endocrine- no polyuria or polydipsia; no heat or cold intolerance Neuro- no headaches, no focal neurologic symptoms Psych- no anxiety, no depression Physical Exam Vital Signs Date Time Temp Pulse Resp B/P (MAP) Pulse Ox O2 Delivery O2 Flow Rate FiO2 02/17/17 23:52 77 18 163/84 98 Room Air 02/17/17 22:44 68 18 159/71 98 Room Air 02/17/17 21:36 97 Room Air 02/17/17 21:36 68 02/17/17 21:32 36.9 74 18 214/84 97 Room Air General Appearance: WD/WN, no apparent distress, + obese Head: normocephalic, atraumatic Eyes: normal inspection, PERRL, EOMI, sclerae normal ENT: normal ENT inspection, hearing grossly normal, pharynx normal Neck: supple, no adenopathy, thyroid normal, no JVD, trachea midline Respiratory/Chest: chest non-tender, lungs clear, normal breath sounds, no respiratory distress, no accessory muscle use Cardiovascular: regular rate, rhythm, no edema, no JVD, no murmur Abdomen/GI: normal bowel sounds, soft, + pertinent finding (RLQ tenderness, no CVA tenderness) Back: normal inspection, no CVA tenderness Extremities/Musculoskelatal: + pertinent finding (mild R LE edema (chronic per patient) no erythema/warmth/tenderness) 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, no motor/sensory deficits, alert, normal reflexes, oriented x 3 Skin: normal color, warm/dry, no rash Lymphatic: no adenopathy Diagnostics Laboratory Results Results Past 24 Hours Test 02/17/17 21:49 02/17/17 21:50 Range/Units White Blood Count 12.60 4.8-10.8 K/uL Red Blood Count 4.04 4.2-5.4 M/uL Hemoglobin 12.9 12.0-16.0 g/dL Hematocrit 39.6 37-47 % Mean Corpuscular Volume 98.0 80-100 fL Mean Corpuscular Hemoglobin 31.9 25-34 pg Mean Corpuscular Hemoglobin Concent 32.6 32-36 g/dl Platelet Count 225 130-400 K/uL Mean Platelet Volume 9.8 7.4-10.4 fL Neutrophils (%) (Auto) 75.4 % Lymphocytes (%) (Auto) 16.8 % Monocytes (%) (Auto) 6.9 % Eosinophils (%) (Auto) 0.5 % Basophils (%) (Auto) 0.2 % Neutrophils # (Auto) 9.50 1.4-6.5 K/uL Lymphocytes # (Auto) 2.12 1.2-3.4 K/uL Monocytes # (Auto) 0.87 0.11-0.59 K/uL Eosinophils # (Auto) 0.06 0-0.5 K/uL Basophils # (Auto) 0.02 0-0.2 K/uL RDW Standard Deviation 49.9 36.4-46.3 fL RDW Coefficient of Variation 13.9 11.5-14.5 % Immature Granulocyte % (Auto) 0.2 % Immature Granulocyte # (Auto) 0.03 0.00-0.02 K/uL Sodium Level 141 136-145 mmol/L Potassium Level 4.0 3.5-5.1 mmol/L Chloride Level 108 98-107 mmol/L Carbon Dioxide Level 24 21-32 mmol/L Anion Gap 9.0 3-11 mmol/L Blood Urea Nitrogen 21 7-18 mg/dl Creatinine 1.02 0.60-1.20 mg/dl Est Creatinine Clear Calc Drug Dose 53.0 ml/min Estimated GFR () 60.2 Estimated GFR (Non- 51.9 BUN/Creatinine Ratio 21.0 10-20 Random Glucose 150 70-99 mg/dl Calcium Level 9.6 8.5-10.1 mg/dl Total Bilirubin 0.3 0.2-1 mg/dl Direct Bilirubin < 0.1 0-0.2 mg/dl Aspartate Amino Transf (AST/SGOT) 11 15-37 U/L Alanine Aminotransferase (ALT/SGPT) 16 12-78 U/L Alkaline Phosphatase 80 45-117 U/L Total Protein 7.3 6.4-8.2 gm/dl Albumin 3.8 3.4-5.0 gm/dl Lipase 86 73-393 U/L Urine Color YELLOW Urine Appearance CLEAR CLEAR Urine pH 7.5 4.5-7.5 Urine Specific [place] 1.016 1.000-1.030 Urine Protein NEG NEG Urine Glucose (UA) NEG NEG Urine Ketones NEG NEG Urine Occult Blood TRACE NEG Urine Nitrite NEG NEG Urine Bilirubin NEG NEG Urine Urobilinogen NEG NEG Urine Leukocyte Esterase NEG NEG Urine WBC (Auto) 0 0-5 /hpf Urine RBC (Auto) 5-10 0-4 /hpf Urine Hyaline Casts (Auto) 0 0-5 /lpf Urine Epithelial Cells (Auto) 0-5 0-5 /lpf Urine Bacteria (Auto) NEG NEG Diagnostic Radiology CT abd: per HandP EKG EKG: HR 72, sinus rhythm ,no signs of ischemia/infarct Impression Assessment and Plan 81 year old female with history of CAD, Mild Aortic Stenosis, other problems below presenting with right flank and abdominal pain starting today. RIGHT URETER STONE WITH HYDRONEPHROSIS - no history of nephrolithiasis - NPO IV fluids strain urine PRN Morphine, Zofran - Urology consulted HISTORY OF CAD, S/P STENT - no cardiac symptoms last cardiac cath in 07/2016, stable CAD - continue usual medications except Plavix and ASA for possible procedure- resume JARRET when able MILD AORTIC STENOSIS - monitor closely while on IV fluids CHRONIC BACK PAIN - continue Fentanyl, Tramadol DVT PROPHYLAXIS SCDs for now as patient may need Urologic Procedure FULL CODE PER PATIENT ANTICIPATE D/C HOME WHEN STABLE FF UP WITH PCP DR. FOWLER AND UROLOGIST VTE Prophylaxis VTE Risk Assessment Done? Y/N: Yes Risk Level: Moderate Given or contraindicated: SCD's
[2017-02-18] MEDS: TRAMADOL HCL 50 MG TAB PO PRN ×4 (00:56→19:45)
[2017-02-18] MEDS: D5W AND NSS 1,000 ML IV SCH ×2 (00:59→13:53)
[2017-02-18] MEDS: LEVOTHYROXINE 125 MCG TAB PO SCH (05:34)
[2017-02-18] MEDS: MoRPHine SULFATE 4 MG/ML 1 ML CARP\\VIAL IV PRN ×2 (07:40→13:43)
--- NOTE | 2017-02-18 08:35 | Urology Consultation ---
History General Date of Service: Feb 18, 2017. Primary Care Physician: Surya Fowler M.D. Pt seen a urologist before?: No History of Present Illness 81 y/o Female who presented to the ED yesterday with the acute onset of right sided flank pain. She described it as sharp in the right flank. 11/27. Worse pain she's had in her life. She would rather have a baby. A CT scan was performed. This showed a 5mm right mid ureteral stone with hydro. Punctate stones in the kidney. Mild-mod hydro. Some stranding around the kidney. Her WBC is 12. Her Cr is 1. Prior to this episode she denied a hx of stones. She voids frequently. Some urge. No hematuria. No dysuria. No fevers. No chills. Her pain is better controlled now with pain meds. Her pain has shifted from the flank to more anterior abd right lower quad. No vomitting currently. Laboratory Labs were reviewed and are within normal limits unless listed below. Labs are available in the chart and at [facility] Problem List Medical Problems: (1) Fall Status: Acute (2) Hand contusion Status: Acute (3) Head injury Status: Acute (4) Knee contusion Status: Acute (5) Shoulder contusion Status: Acute Past History other Past Surgical History: other Family History Hypertension Social History Hx Tobacco Use In Past Year?: No Smoking: quit greater than 1 year Alcohol: never Marital status: Occupation status: retired Immunizations History of Influenza Vaccine: Yes Influenza Vaccine Date: Oct 27, 2008 History of Tetanus Vaccine?: UTD Tetanus Immunization Date: Feb 07, 2007 History of Pneumococcal: Yes Pneumococcal Date: Dec 20, 1998 History of Hepatitis B Vaccine: No History of MDRO No Allergies Coded Allergies: NSAIDs (Verified Allergy, Unknown, IBUPROFEN/SULINDAC, 02/17/17) Promethazine (Verified Adverse Reaction, Unknown, "MADE ME WANT TO JUMP OUT OF MY SKIN", 02/17/17) Medications Home Medications: Home Meds and Scripts Medications Dose Route/Sig Max Daily Dose Days Date Category Dose Instructions Vitamin B-12 (Cyanocobalamin) 1,000 Mcg Tab 1,000 Mcg PO DAILY 02/17/17 Reported Neurontin (Gabapentin) 100 Mg Cap 100 Mg PO TID 02/17/17 Reported Fentanyl 12 Mcg Tdsy 12.5 Mcg TOP Q3D 02/17/17 Reported Duragesic (Fentanyl) 50 Mcg Tdsy 50 Mcg TD CQ72HR 02/17/17 Reported Temovate (Clobetasol Propionate) 0.05 % Cre 1 Appln TOP BID 90 02/17/17 Reported APPLY TWICE DAILY FOR 2 WEEKS THEN OFF FOR 1 WEEK THEN REPEAT Colace (Docusate Sodium) 100 Mg Cap 100 Mg PO BID 12/05/16 Reported Micro-K Ext Rel (Potassium Chloride) 10 Meq Capcr 10 Meq PO QAM 09/11/16 Reported TAKE 10MEQ DAILY WITH 20MG OF FUROSEMIDE Lasix (Furosemide) 20 Mg Tab 20 Mg PO QAM 09/11/16 Reported Vitamin D (Cholecalciferol) 1,000 Unit Tab 2,000 Unit PO DAILY 09/11/16 Reported Ativan (Lorazepam) 0.5 Mg Tab 0.5 Mg PO BID PRN 09/11/16 Reported Prozac (Fluoxetine HCl) 20 Mg Cap 20 Mg PO QPM 09/11/16 Reported Wellbutrin Sr (Bupropion HCl) 100 Mg Ertab 100 Mg PO QAM 09/11/16 Reported Imdur Ext Rel (Isosorbide Mononitrate) 60 Mg Ertab 60 Mg PO QAM 09/11/16 Reported Zestril (Lisinopril) 10 Mg Tab 10 Mg PO QAM 09/11/16 Reported Synthroid (Levothyroxine Sodium) 125 Mcg Tab 125 Mcg PO QAM 01/01/13 Reported Aspirin Ec (Aspirin) 81 Mg Tab 81 Mg PO QAM 01/01/13 Reported Ultram (Tramadol HCl) 50 Mg Tab 50 Mg PO Q6HR PRN 08/24/10 Reported take 50mg up to four times a day as needed for pain. take each dose with 325mg of tylenol Prilosec (Omeprazole) 20 Mg Capcr 20 Mg PO QAM 02/12/10 Reported Zocor (Simvastatin) 40 Mg Tab 40 Mg PO HS 08/18/08 Reported Toprol-Xl (Metoprolol Succinate) 25 Mg Tabcr 25 Mg PO QAM 08/18/08 Reported Nitrostat (Nitroglycerin) 0.4 Mg Tab 0.4 Mg UT PRN 08/18/08 Reported Plavix (Clopidogrel Bisulfate) 75 Mg Tab 75 Mg PO QAM 08/18/08 Reported Prozac (Fluoxetine HCl) 40 Mg Cap 40 Mg PO QAM 08/18/08 Reported Inpatient Medications: Current Inpatient Medications Medications (Trade) Dose Ordered Sig/Yoli Route Start Time Stop Time Status Last Admin Dose Admin Dextrose/Sodium Chloride 1,000 ml @ 80 mls/hr [id number] IV 02/18/17 01:00 03/20/17 00:59 02/18/17 00:59 80 MLS/HR Morphine Sulfate (MoRPHine SULFATE INJ) 4 mg Q4H PRN IV 02/18/17 00:15 03/04/17 00:14 02/18/17 07:40 4 MG Senna/Docusate Sodium (Senokot S Tab) 1 tab QAM PO 02/18/17 09:00 03/20/17 08:59 Bupropion HCl (Wellbutrin-Sr Tab) 100 mg QAM PO 02/18/17 09:00 03/20/17 08:59 Fluoxetine HCl (Prozac Cap) 20 mg QPM PO 02/18/17 21:00 03/20/17 20:59 Fluoxetine HCl (Prozac Cap) 40 mg QAM PO 02/18/17 09:00 03/20/17 08:59 Furosemide (Lasix Tab) 20 mg QAM PO 02/18/17 09:00 03/20/17 08:59 Gabapentin (Neurontin Cap) 100 mg TID PO 02/18/17 09:00 03/20/17 08:59 Isosorbide Mononitrate (Imdur Ext Rel Tab) 60 mg QAM PO 02/18/17 09:00 03/20/17 08:59 Levothyroxine Sodium (Synthroid Tab) 125 mcg DAILYBB PO 02/18/17 06:00 03/20/17 05:59 Lisinopril (Zestril Tab) 10 mg QAM PO 02/18/17 09:00 03/20/17 08:59 Lorazepam (Ativan Tab) 0.5 mg BID PRN PO 02/18/17 00:15 03/20/17 00:14 Metoprolol Succinate (Toprol Xl Tab) 25 mg QAM PO 02/18/17 09:00 03/20/17 08:59 Potassium Chloride (Klor-Con M10) 10 meq QAM PO 02/18/17 09:00 03/20/17 08:59 Simvastatin (Zocor Tab) 40 mg HS PO 02/18/17 21:00 03/20/17 20:59 Tramadol HCl (Ultram Tab) 50 mg Q6H PRN PO 02/18/17 00:15 03/20/17 00:14 02/18/17 07:09 50 MG Miscellaneous Information (Order Awaiting Action) 1 ea QS N/A 02/18/17 08:00 03/20/17 07:59 Pantoprazole Sodium (Protonix Tab) 40 mg QAM PO 02/18/17 09:00 03/20/17 08:59 Acetaminophen (Tylenol Tab) 650 mg Q4H PRN PO 02/18/17 00:15 03/20/17 00:14 Ondansetron HCl (Zofran Inj) 4 mg Q6H PRN IV 02/18/17 00:15 03/20/17 00:14 02/18/17 07:40 4 MG Metoclopramide HCl (Reglan Inj) 10 mg Q6H PRN IV 02/18/17 00:15 03/20/17 00:14 02/18/17 00:57 10 MG Fentanyl (Duragesic Patch) 50 mcg Q3D TD 02/20/17 09:00 03/06/17 08:59 Miscellaneous (Fentanyl Patch Remove & Waste) 1 ea Q3D N/A 02/20/17 08:59 03/22/17 08:58 Miscellaneous Information (Check Fentanyl Patch Placement) 1 ea QS N/A 02/18/17 08:00 03/20/17 07:59 Fentanyl (Duragesic Patch) 12 mcg Q3D TD 02/20/17 09:00 03/06/17 08:59 Miscellaneous (Fentanyl Patch Remove & Waste) 1 ea Q3D N/A 02/20/17 08:59 03/22/17 08:58 Miscellaneous Information (Check Fentanyl Patch Placement) 1 ea QS N/A 02/18/17 08:00 03/20/17 07:59 Tamsulosin HCl (Flomax Cap) 0.4 mg QAM PO 02/18/17 09:00 03/20/17 08:59 Review of Systems Review of Systems Constitutional: No fever, No chills Neurological: No dizzy Gastrointestinal: + abdominal pain Respiratory: No shortness of breath Skin: No rash Musculoskeletal: No joint pain Ears / Nose / Throat: No hearing loss Female : + frequent urination, + kidney stones All Other Systems: Reviewed and Negative Physical Exam Vital Signs: Vital Signs Past 12 Hours Date Time Temp Pulse Resp B/P (MAP) Pulse Ox O2 Delivery O2 Flow Rate FiO2 02/18/17 07:31 36.7 48 20 159/76 (103) 96 Nasal Cannula 2.0 02/18/17 00:55 151/81 (104) 02/18/17 00:00 36.9 48 18 173/84 96 Nasal Cannula 2.5 02/18/17 00:00 Nasal Cannula 2.5 02/17/17 23:52 77 18 163/84 98 Room Air 02/17/17 22:44 68 18 159/71 98 Room Air 02/17/17 21:36 97 Room Air 02/17/17 21:36 68 02/17/17 21:32 36.9 74 18 214/84 97 Room Air Physical Exam: General Appearance: WD/WN, no apparent distress ENT: normal ENT inspection, hearing grossly normal Neck: supple, no adenopathy Respiratory/Chest: chest non-tender, lungs clear Cardiovascular: regular rate, rhythm, no edema Extremities: normal range of motion, normal inspection 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 Mild hydro. Cr normal. WBC 12. Pain migrating distally. Stone likely also migrating. Seems more comfortable this morning. Would recommend a trial of passage over the next 24 hours. She may be able to pass it on her own. IV fluids. Flomax. Toradol. Morphine. OK to have a diet today. NPO at midnight. KUB tomorrow morning to eval location of stone. If she continues to have pain on and off over the next 24 hours, then we may plan to perform ureteroscopy and stone extraction tomorrow. Discussed plan with Dr. Dumont, the admitting physician.
[2017-02-18] MEDS: CHECK FENTANYL PATCH PLACEMENT SCH ×6 (08:46→23:45)
[2017-02-18] MEDS: FLUOXETINE HCL 20 MG CAP PO SCH ×2 (08:47→21:37)
[2017-02-18] MEDS: FUROSEMIDE 20 MG TAB PO SCH (08:48)
[2017-02-18] MEDS: BuPROPion SR 100 MG TABCR PO SCH (08:48)
[2017-02-18] MEDS: DOCUSATE SODIUM/SENNA 50/8.6MG TAB PO SCH (08:48)
[2017-02-18] MEDS: POTASSIUM CHLORIDE 10 MEQ TABCR PO SCH (08:49)
[2017-02-18] MEDS: GABAPENTIN 100 MG CAP PO SCH ×3 (08:49→21:36)
[2017-02-18] MEDS: ISOSORBIDE MONONITRATE 60 MG TABCR PO SCH (08:50)
[2017-02-18] MEDS: LISINOPRIL 10 MG TAB PO SCH (08:50)
[2017-02-18] MEDS: PANTOprazole SOD 40 MG TAB PO SCH (08:51)
[2017-02-18] MEDS: METOPROLOL SUCC 25MG EXT REL TAB PO SCH (08:51)
[2017-02-18] MEDS: TAMSULOSIN HCL 0.4 MG CAP PO SCH (09:28)
[2017-02-18] MEDS ORDERED: DiphenhydrAMINE INJ 25 MG in SYRINGE 0 ML IV PRN (09:45)
[2017-02-18] MEDS ORDERED: DiphenhydrAMINE HCL 50 MG/ML VIAL IV PRN (10:00)
--- NOTE | 2017-02-18 13:45 | NUR ---
A: [employer] reported to this RN that patient was having chills and shaking; I walked in the patient's room and she is lying in bed in tears, shaking, and repeating "I don't know what's going on with me". Temperature was taken and it was 36.8. She stated "I think I'm withdrawing," I said "withdrawing from what?" and she stated "my Fentanyl patches should've been changed this morning and they weren't". I informed her that they weren't due to be changed for 2 more days and she tells me that they were placed last Saturday. She continued to inform me that she sees pain management and she's been trying to get off of the fentanyl patches. Informed Dr. Dumont, he was up to see pt and speak to her. Pt is showing many signs of anxiety/Dr. Dumont suggested giving her morphine for these symptoms and we will change one of her two patches today. Will continue to monitor.
--- NOTE | 2017-02-18 14:03 | Progress Note ---
Internal Med Progress Note Date of Service: Feb 18, 2017. Provider Documentation: SUBJECTIVE: Patient doing well this morning in terms of pain control. Later in afternoon patient reports of feeling chills and she reported to her nurse that she thought may be she was overdue for Fentanyl patch change which was last changed some time before hospital presentation OBJECTIVE: Exam: General- patient seen lysing in bed with covers pulled over, she is anxious and somewhat uncomfortable Eyes- EOMI Neck- trachea midline, no JVD Lungs- clear to auscultation Heart- regular rate Abdomen- soft, positive bowel sounds, tenderness on right quadrant of abdomen, there is no tenderness on flanks or back Extremities- mild R LE edema (chronic per patient) Neuro- awake, alert, oriented ASSESSMENT & PLAN: CT Abdomen 1. Obstructing 5 mm calcification mid right ureter. 2. Moderate right hydroureteronephrosis with a trace amount of perinephric infiltrative change. 3. Nonobstructing punctate calcification left kidney. 4. Chronic sigmoid diverticulosis with no evidence for acute diverticulitis Patient was evaluated by Urology on 02/18/17 which recommended trial of passage over the next 24 hours with IV fluids, Tamsulosin and pain medications with possible ureteroscopy and stone extraction on 02/19/17 Patient reported chills on 02/18/17 - unclear whether this is due to Fentanyl patches needed to be changed vs worsening pain vs infection -Patient will has 1 out of her 2 Fentanyl patches replaced -Patient has listed allergies to Ibuprofen so Toradol should be used sparingly and if used, should be accompanied with IV Benadryl in case there are allergy symptoms - to rule out infection, will monitor for fevers, UA on 02/17/17 negative for bacteria, blood cultures ordered with other serum lab work on 02/18/17 -have informed urology service of chills and whether this is intolerance to the pain vs infection, will now keep patient NPO if more urgent procedure is to be needed CHRONIC BACK PAIN - on Fentanyl, Tramadol at home - senna/colace to avoid narcotic induced ileus HISTORY OF CAD, S/P STENT - no cardiac symptoms last cardiac cath in 07/2016, stable CAD - continue usual medications except Plavix and ASA for possible procedure- resume JARRET when able MILD AORTIC STENOSIS - monitor closely while on IV fluids DVT PROPHYLAXIS SCDs for now as patient may need Urologic Procedure FULL CODE PER PATIENT Vital Signs: Date Time Temp Pulse Resp B/P (MAP) Pulse Ox O2 Delivery O2 Flow Rate FiO2 02/18/17 13:54 36.8 02/18/17 13:10 37.2 82 20 132/78 (96) 93 Room Air 02/18/17 08:52 84 94 Room Air 02/18/17 07:45 Room Air 02/18/17 07:31 36.7 48 20 159/76 (103) 96 Nasal Cannula 2.0 02/18/17 00:55 151/81 (104) 02/18/17 00:00 36.9 48 18 173/84 96 Nasal Cannula 2.5 02/18/17 00:00 Nasal Cannula 2.5 02/17/17 23:52 77 18 163/84 98 Room Air 02/17/17 22:44 68 18 159/71 98 Room Air 02/17/17 21:36 97 Room Air 02/17/17 21:36 68 02/17/17 21:32 36.9 74 18 214/84 97 Room Air Lab Results: Results Past 24 Hours Test 02/17/17 21:49 02/17/17 21:50 02/18/17 14:20 Range/Units White Blood Count 12.60 4.8-10.8 K/uL Red Blood Count 4.04 4.2-5.4 M/uL Hemoglobin 12.9 12.0-16.0 g/dL Hematocrit 39.6 37-47 % Mean Corpuscular Volume 98.0 80-100 fL Mean Corpuscular Hemoglobin 31.9 25-34 pg Mean Corpuscular Hemoglobin Concent 32.6 32-36 g/dl Platelet Count 225 130-400 K/uL Mean Platelet Volume 9.8 7.4-10.4 fL Neutrophils (%) (Auto) 75.4 % Lymphocytes (%) (Auto) 16.8 % Monocytes (%) (Auto) 6.9 % Eosinophils (%) (Auto) 0.5 % Basophils (%) (Auto) 0.2 % Neutrophils # (Auto) 9.50 1.4-6.5 K/uL Lymphocytes # (Auto) 2.12 1.2-3.4 K/uL Monocytes # (Auto) 0.87 0.11-0.59 K/uL Eosinophils # (Auto) 0.06 0-0.5 K/uL Basophils # (Auto) 0.02 0-0.2 K/uL RDW Standard Deviation 49.9 36.4-46.3 fL RDW Coefficient of Variation 13.9 11.5-14.5 % Immature Granulocyte % (Auto) 0.2 % Immature Granulocyte # (Auto) 0.03 0.00-0.02 K/uL Sodium Level 141 136-145 mmol/L Potassium Level 4.0 3.5-5.1 mmol/L Chloride Level 108 98-107 mmol/L Carbon Dioxide Level 24 21-32 mmol/L Anion Gap 9.0 3-11 mmol/L Blood Urea Nitrogen 21 7-18 mg/dl Creatinine 1.02 0.60-1.20 mg/dl Est Creatinine Clear Calc Drug Dose 53.0 ml/min Estimated GFR () 60.2 Estimated GFR (Non- 51.9 BUN/Creatinine Ratio 21.0 10-20 Random Glucose 150 70-99 mg/dl Calcium Level 9.6 8.5-10.1 mg/dl Total Bilirubin 0.3 0.2-1 mg/dl Direct Bilirubin < 0.1 0-0.2 mg/dl Aspartate Amino Transf (AST/SGOT) 11 15-37 U/L Alanine Aminotransferase (ALT/SGPT) 16 12-78 U/L Alkaline Phosphatase 80 45-117 U/L Total Protein 7.3 6.4-8.2 gm/dl Albumin 3.8 3.4-5.0 gm/dl Lipase 86 73-393 U/L Urine Color YELLOW Urine Appearance CLEAR CLEAR Urine pH 7.5 4.5-7.5 Urine Specific [place] 1.016 1.000-1.030 Urine Protein NEG NEG Urine Glucose (UA) NEG NEG Urine Ketones NEG NEG Urine Occult Blood TRACE NEG Urine Nitrite NEG NEG Urine Bilirubin NEG NEG Urine Urobilinogen NEG NEG Urine Leukocyte Esterase NEG NEG Urine WBC (Auto) 0 0-5 /hpf Urine RBC (Auto) 5-10 0-4 /hpf Urine Hyaline Casts (Auto) 0 0-5 /lpf Urine Epithelial Cells (Auto) 0-5 0-5 /lpf Urine Bacteria (Auto) NEG NEG Microbiology Results 02/18/17 Blood Culture, Ordered Pending 02/18/17 Blood Culture, Ordered Pending
[2017-02-18] MEDS ORDERED: NURSING DECISION MEDICATION ORDER SCH (14:15)
[2017-02-18 15:02] LABS: EOS % 1.2 %; EOS ABS # 0.04 K/uL (0-0.5); HEMATOCRIT 39.3 % (37-47); HEMOGLOBIN 12.5 g/dL (12.0-16.0); IG# 0.01 K/uL (0.00-0.02); LYMPH ABS # 0.29 K/uL (1.2-3.4); MEAN CORPUSCULAR HEMOGLOBIN 32.1 pg (25-34); MEAN CORPUSCULAR HGB CONC 31.8 g/dl (32-36); MEAN PLATELET VOLUME 10.4 fL (7.4-10.4); MONO % 0.6 %; MONO ABS # 0.02 K/uL (0.11-0.59); NEUT % 88.9 %; NEUT ABS # 2.88 K/uL (1.4-6.5); PLATELET COUNT 166 K/uL (130-400); RED CELL DISTRIBUTION WIDTH CV 14.2 % (11.5-14.5); WHITE BLOOD COUNT 3.24 K/uL (4.8-10.8)
[2017-02-18 15:19] LABS: ALBUMIN 3.3 gm/dl (3.4-5.0); CALCIUM 8.7 mg/dl (8.5-10.1); CREATININE 1.52 mg/dl (0.60-1.20); POTASSIUM 3.8 mmol/L (3.5-5.1); TOTAL PROTEIN 6.8 gm/dl (6.4-8.2)
[2017-02-18] MEDS: FENTANYL 12 MCG/HR TDSY TD SCH (15:44)
[2017-02-18] MEDS: ACETAMINOPHEN 325 MG TAB PO PRN (15:52)
[2017-02-18] MEDS: [UNRECOGNIZED DRUG - REMARK] SCH (15:53)
--- NOTE | 2017-02-18 16:04 | EMERGENCY ROOM VISIT NOTE ---
History Report prepared by Radha: Flakita Valiente Under the Supervision of: Dr. Uriel Jose M.D. First contact with patient: 21:51 Chief Complaint: FLANK PAIN Stated Complaint: ABD PAIN History of Present Illness The patient is a 81 year old female who presents to the Emergency Room with complaints of constant sharp flank pain beginning this afternoon. The patient notes nausea but denies any fever, blood in urine, or vomiting. The patient has a history of hypertension and kidney stones. She states her pain feels like the previous times she has had kidney stones. She denies any dysuria. Source of History: patient History Limited By: poor cooperation (patient in significant pain and having difficulty answering questions) Onset: this afternoon Position: other (flank) Quality: sharp Timing: constant Associated Symptoms: + nausea, No fevers, No vomiting, No urinary symptoms Review of Systems See HPI for pertinent positives & negatives. A total of 10 systems reviewed and were otherwise negative. Past Medical & Surgical Medical Problems: (1) Ureteral stone Surgical Problems: (1) History of cholecystectomy Family History Hypertension Social History Smoking Status: Never Smoker Alcohol Use: none Drug Use: none Marital Status: Housing Status: lives alone Occupation Status: retired Current/Historical Medications Scheduled Aspirin (Aspirin Ec), 81 MG PO QAM Bupropion (Wellbutrin Sr), 100 MG PO QAM Cholecalciferol (Vitamin D), 2,000 UNIT PO DAILY Clobetasol Propionate (Temovate), 1 APPLN TOP BID Clopidogrel (Plavix), 75 MG PO QAM Cyanocobalamin (Vitamin B-12), 1,000 MCG PO DAILY Docusate Sodium (Colace), 100 MG PO BID Fentanyl (Duragesic), 50 MCG TD [id number] Fentanyl (Fentanyl), 12.5 MCG TOP Q3D Fluoxetine (Prozac), 40 MG PO QAM Fluoxetine (Prozac), 20 MG PO QPM Furosemide (Lasix), 20 MG PO QAM Gabapentin (Neurontin), 100 MG PO TID Isosorbide Mononitrate Ext Rel (Imdur Ext Rel), 60 MG PO QAM Levothyroxine Sodium (Synthroid), 125 MCG PO QAM Lisinopril (Zestril), 10 MG PO QAM Metoprolol Succ (Toprol Xl) (Toprol-Xl), 25 MG PO QAM Nitroglycerin (Nitrostat), 0.4 MG UT PRN Omeprazole (Prilosec), 20 MG PO QAM Potassium Chloride (Micro-K Ext Rel), 10 MEQ PO QAM Simvastatin (Zocor), 40 MG PO HS Scheduled PRN Lorazepam (Ativan), 0.5 MG PO BID PRN for ANXIETY Tramadol (Ultram), 50 MG PO Q6HR PRN for Pain Allergies Coded Allergies: NSAIDs (Verified Allergy, Unknown, IBUPROFEN/SULINDAC, 02/17/17) Promethazine (Verified Adverse Reaction, Unknown, "MADE ME WANT TO JUMP OUT OF MY SKIN", 02/17/17) Physical Exam Vital Signs Date Time Temp Pulse Resp B/P (MAP) Pulse Ox O2 Delivery O2 Flow Rate FiO2 02/17/17 22:44 68 18 159/71 98 Room Air 02/17/17 21:36 97 Room Air 02/17/17 21:36 68 02/17/17 21:32 36.9 74 18 214/84 97 Room Air Physical Exam The patient is writhing in pain. Constitutional: Vital signs reviewed. Eyes: Pupils are equal round reactive to light. Conjunctiva are noninjected. ENT: Pharynx is clear without erythema or exudate. Mucous membranes are moist. Neck supple without meningeal signs. Respiratory: Clear to auscultation bilaterally. Breath sounds are equal bilaterally. Cardiovascular: Regular rate and rhythm. No rubs or gallops. GI: Right flank pain, no guarding. Soft, nondistended. Bowel sounds are present. Musculoskeletal: No peripheral edema. Integumentary: No cyanosis. Neurological: The patient is awake and alert. No focal deficits. Psychiatric: Very anxious. Medical Decision & Procedures ER Provider Diagnostic Interpretation: Radiology results as stated below per my review and the radiologist's interpretation: ABD/PELVIS WITHOUT FOR STONE FINDINGS: Mild bibasilar dependent atelectasis. Probable early hepatic cirrhotic change. No evidence for ascites or significant varices. The adrenal glands are unremarkable. Pancreas is uniform. Kidneys show moderate cortical scarring bilaterally. Punctate nonobstructing left renal calcifications are similar to the prior study. Patient has developed moderate right renal hydronephrosis and hydroureter hydroureter. There is a 5 mm obstructing calculus mid right ureter is trace amount of right perinephric fluid and infiltrative change. The more distal aspects of the right ureter are unremarkable. Bladder is midline. There are no contained calcifications. There are findings of moderate chronic sigmoid diverticulosis. There is no evidence for acute diverticulitis. There is no evidence for free air or abscess collection or obstructive change. Graph there is a fixed hiatal hernia. IMPRESSION: 1. Obstructing 5 mm calcification mid right ureter. 2. Moderate right hydroureteronephrosis with a trace amount of perinephric infiltrative change. 3. Nonobstructing punctate calcification left kidney. 4. Chronic sigmoid diverticulosis with no evidence for acute diverticulitis. The above report was generated using voice recognition software. It may contain grammatical, syntax or spelling errors. Electronically signed by: Surya Larsen M.D. Laboratory Results Test 02/17/17 21:49 02/17/17 21:50 Direct Bilirubin < 0.1 mg/dl (0-0.2) Lipase 86 U/L (73-393) Urine Color YELLOW Urine Appearance CLEAR (CLEAR) Urine pH 7.5 (4.5-7.5) Urine Specific [place] 1.016 (1.000-1.030) Urine Protein NEG (NEG) Urine Glucose (UA) NEG (NEG) Urine Ketones NEG (NEG) Urine Occult Blood TRACE (NEG) Urine Nitrite NEG (NEG) Urine Bilirubin NEG (NEG) Urine Urobilinogen NEG (NEG) Urine Leukocyte Esterase NEG (NEG) Urine WBC (Auto) 0 /hpf (0-5) Urine RBC (Auto) 5-10 /hpf (0-4) Urine Hyaline Casts (Auto) 0 /lpf (0-5) Urine Epithelial Cells (Auto) 0-5 /lpf (0-5) Urine Bacteria (Auto) NEG (NEG) Laboratory results as reviewed by me. Medications Administered Medications (Trade) Dose Ordered Sig/Yoli Route Start Time Stop Time Status Last Admin Dose Admin Morphine Sulfate (MoRPHine SULFATE INJ) 4 mg ONE STAT IV 02/17/17 21:55 02/17/17 21:56 DC 02/17/17 22:01 4 MG Ondansetron HCl (Zofran Inj) 4 mg NOW STAT IV 02/17/17 21:55 02/17/17 21:56 DC 02/17/17 22:01 4 MG Fentanyl Citrate (Fentanyl Inj) 50 mcg NOW STAT IV 02/17/17 22:21 02/17/17 22:22 DC 02/17/17 22:27 50 MCG Ondansetron HCl (Zofran Inj) 4 mg NOW STAT IV 02/17/17 22:21 02/17/17 22:22 DC 02/17/17 22:27 4 MG ECG Indication: other (nursing protocol) Rate (beats per minute): 72 Rhythm: normal sinus Findings: no acute ischemic change, no ectopy ED Course 2152: The patient was evaluated in room A12B. A complete history and physical exam was performed. 2154: Ordered Zofran Inj 4 mg IV, Morphine Sulfate 4 mg IV. 2218: The patient is still having pain and nausea. 2220: Ordered Zofran Inj 4 mg IV, Fentanyl Inj 50 mcg IV. 2242:I updated the patient on her CT results. She is feeling better and her blood pressure has significantly improved. 2250: I spoke with Dr. Da Silva of [facility]. We discussed the patient and her results. The patient will be further evaluated by him. Medical Decision This is an 81-year-old female presents with right-sided flank pain. Differential diagnosis includes renal colic, UTI, pyelonephritis, strain, pancreatitis, cholecystitis. I did perform a limited focused review of portions of the patient's old chart on the electronic medical record. The patient has had no recent pertinent visits to this hospital. I did evaluate the patient as noted above. I did treat patient with IV morphine and Zofran. I did order and personally review the patient's urinalysis as described above. I did order and review the patient's blood work as noted in the electronic medical record. I did order a CT of the abdomen and pelvis. I did review the images myself as well as the radiology report as described above. She does have a 5 mm stone in the mid right ureter with hydronephrosis. I did reassess patient. She is still having pain. She was given fentanyl IV and additional Zofran IV. She had continued pain and will require hospitalization. I did discuss case with the hospitalist and outpatient case manager. Medication Reconcilliation Current Medication List: was personally reviewed by me Blood Pressure Screening Patient's blood pressure: Elevated blood pressure Blood pressure disposition: Referred to PCP Consults Time Called: [phone] Consulting Physician: Dr. PanliAjay Returned Call: [phone] Da Silva of [facility]. We discussed the patient and her results. The patient will be further evaluated by him. Impression Primary Impression: Obstructive uropathy Additional Impression: Renal colic Scribe Attestation The scribe's documentation has been prepared under my direct and personally reviewed by me in its entirety. I confirm that the note above accurately reflects all work, treatment, procedures, and medical decision making performed by me. Departure Information Dispostion Being Evaluated By Hospitalist Referrals Surya Fowler M.D. (PCP) Patient Instructions My [facility] Problem Qualifiers
[2017-02-18] MEDS ORDERED: PIPERACILL/TAZOBAC CONSULT ACTIVE PRN (17:45)
[2017-02-18] MEDS ORDERED: PIPERACILL/TAZOBAC IV 4.5 GM in DEXTROSE 5% 50ML 50 ML IV ONE (18:00)
[2017-02-18] MEDS ORDERED: SENNA 8.6 MG TAB PO SCH (21:00)
[2017-02-18] MEDS ORDERED: DOCUSATE SODIUM 100 MG CAP PO SCH (21:00)
[2017-02-18] MEDS: SIMVASTATIN 40 MG TAB PO SCH (21:54)
--- NOTE | 2017-02-18 22:33 | NUR ---
The patient has demonstrated progress toward goals and readiness for discharge as demonstrated by: Pt. is A&Ox4, clear on room air, pain managed with prn medications. IV fluids infusing per order. Pulses palpable, trace edema to RLE. BSx4 quadrants, denied gas. NPO except meds. Voiding in the toilet, no difficulty. All urine strained. OOB x1 assist and a walker.
[2017-02-18] MEDS: PIPERACILL/TAZOBAC IV 4.5 GM in DEXTROSE 5% 100ML 100 ML IV SCH (23:44)
[2017-02-19] MEDS: TRAMADOL HCL 50 MG TAB PO PRN (03:26)
[2017-02-19] MEDS: D5W AND NSS 1,000 ML IV SCH ×2 (03:26→15:30)
[2017-02-19] MEDS: LEVOTHYROXINE 125 MCG TAB PO SCH (05:59)
[2017-02-19 07:09] VITALS: BP 104/57; PULSE 71; TEMP 37.1; O2SAT 95
[2017-02-19] MEDS: CHECK FENTANYL PATCH PLACEMENT SCH ×6 (08:28→23:36)
[2017-02-19] MEDS: PIPERACILL/TAZOBAC IV 4.5 GM in DEXTROSE 5% 100ML 100 ML IV SCH ×3 (08:33→23:35)
[2017-02-19 09:05] LABS: HEMATOCRIT 33.6 % (37-47); HEMOGLOBIN 10.8 g/dL (12.0-16.0); MEAN CELL VOLUME 100.3 fL (80-100); MEAN CORPUSCULAR HEMOGLOBIN 32.2 pg (25-34); MEAN CORPUSCULAR HGB CONC 32.1 g/dl (32-36); MEAN PLATELET VOLUME 10.4 fL (7.4-10.4); PLATELET COUNT 175 K/uL (130-400); RED CELL DISTRIBUTION WIDTH CV 14.3 % (11.5-14.5); RED CELL DISTRIBUTION WIDTH SD 52.4 fL (36.4-46.3)
[2017-02-19 09:16] LABS: ALBUMIN 2.9 gm/dl (3.4-5.0); CALCIUM 8.2 mg/dl (8.5-10.1); CREATININE 1.7 mg/dl (0.60-1.20); TOTAL PROTEIN 6.3 gm/dl (6.4-8.2)
--- NOTE | 2017-02-19 09:48 | Clinical Documentation Query ---
QUERY 1 OF [address] PONCE, In your clinical opinion is this patient being managed for: ( ) Sepsis, not POA ( ) Sepsis, POA ( ) Not Agree ( X ) Other explanation of clinical findings (Please Explain):: Meets SIRS ( ) Unable to determine (Please Define) ( ) Need to Discuss The medical record reflects the following clinical findings, treatment, and risk factors. Clinical Indicators:81 yo female presenting with flank pain/ureteral stones. Post admission (hospital day 2) pt developed shaking chills, fever of 38.4, hypotension 98/59. WBC increased from 12.60 to 25.60, repeated UA with LE small/WBC 5-10/bacteria +1. Treatment: IV zosyn, blood cultures, UA clean catch Risk Factors: ureteral stone, possible UTI QUERY 2 OF 3 In your clinical opinion is this patient being managed for: ( X ) Acute kidney failure on CKD stage III ( ) Not Agree ( ) Other explanation of clinical findings (Please Explain) ( ) Unable to determine (Please Define) ( ) Need to Discuss The medical record reflects the following clinical findings, treatment, and risk factors. Clinical Indicators: Baseline Cr 1.02 with GFR of 51.9 which has risen to Cr 1.70/GFR 28. Treatment: monitor PRP's, IV fluids Risk Factors: age, possible UTI, possible sepsis QUERY 3 OF 3 In your clinical opinion is this patient being managed for: ( ) Urinary tract infection ( ) Not Agree ( ) Other explanation of clinical findings (Please Explain) ( ) Unable to determine (Please Define) ( X ) Need to Discuss The medical record reflects the following clinical findings, treatment, and risk factors. Clinical Indicators: Repeat UA LE small/WBC 5-10/bacteria +1 Treatment:IV zosyn started, IV fluids Risk Factors: ureteral stone Please clarify and document your clinical opinion in the progress notes and discharge summary. Terms such as "probable", "suspected", "likely", "questionable", "possible", or "still to be ruled out" are acceptable. IF IN AGREEMENT, YOU MUST DOCUMENT ABOVE DIAGNOSTIC STATEMENT IN DAILY PROGRESS NOTES AND DISCHARGE SUMMARY. This document is not part of the patient's record. Thank You, Ladonna Madera RN [phone]
[2017-02-19 10:06] LABS: POTASSIUM 3.9 mmol/L (3.5-5.1)
[2017-02-19] MEDS: FLUOXETINE HCL 20 MG CAP PO SCH ×2 (10:15→21:13)
[2017-02-19] MEDS: GABAPENTIN 100 MG CAP PO SCH ×3 (10:15→21:14)
[2017-02-19] MEDS: FUROSEMIDE 20 MG TAB PO SCH (10:15)
[2017-02-19] MEDS: BuPROPion SR 100 MG TABCR PO SCH (10:15)
[2017-02-19] MEDS: POTASSIUM CHLORIDE 10 MEQ TABCR PO SCH (10:15)
[2017-02-19] MEDS: METOPROLOL SUCC 25MG EXT REL TAB PO SCH (10:16)
[2017-02-19] MEDS: DOCUSATE SODIUM/SENNA 50/8.6MG TAB PO SCH (10:16)
[2017-02-19] MEDS: TAMSULOSIN HCL 0.4 MG CAP PO SCH (10:16)
[2017-02-19] MEDS: LISINOPRIL 10 MG TAB PO SCH (10:16)
[2017-02-19] MEDS: ISOSORBIDE MONONITRATE 60 MG TABCR PO SCH (10:16)
[2017-02-19] MEDS: PANTOprazole SOD 40 MG TAB PO SCH (10:16)
--- NOTE | 2017-02-19 10:27 | Progress Note ---
Subjective Date of Service: Feb 19, 2017. Subjective Low grade temp last night. Started on Zosyn. Temp came down after that. Blood cx sent. Cr elevated to 1.7 WBC elevated to 25 Continues to have pain on the right flank. She has not passed the stone yet. Problem List Medical Problems: (1) Fall Status: Acute (2) Hand contusion Status: Acute (3) Head injury Status: Acute (4) Knee contusion Status: Acute (5) Obstructive uropathy Status: Acute (6) Renal colic Status: Acute (7) Shoulder contusion Status: Acute Review of Systems Abdomen: + pain Female : + problem reported All Other Systems: Reviewed and Negative Objective Vital Signs Date Time Temp Pulse Resp B/P (MAP) Pulse Ox O2 Delivery O2 Flow Rate FiO2 02/19/17 08:16 Room Air 02/19/17 07:09 37.1 71 16 104/57 (73) 95 Room Air 02/18/17 23:15 Room Air 02/18/17 23:09 37.7 71 18 100/55 (70) 95 Room Air 02/18/17 19:51 37.3 02/18/17 19:45 37.6 02/18/17 16:59 38.4 02/18/17 15:47 37.9 02/18/17 15:45 Room Air 02/18/17 15:14 38.4 80 18 98/59 (72) 92 Room Air 02/18/17 13:54 36.8 02/18/17 13:10 37.2 82 20 132/78 (96) 93 Room Air Physical Exam General Appearance: no apparent distress Respiratory/Chest: chest non-tender Cardiovascular: regular rate, rhythm Abdomen: + tenderness Neurologic/Psychiatric: oriented x 3 Laboratory Results Last 24 Hours Test 02/18/17 14:20 02/18/17 18:30 02/19/17 08:15 02/19/17 09:27 White Blood Count 3.24 K/uL 25.60 K/uL Red Blood Count 3.89 M/uL 3.35 M/uL Hemoglobin 12.5 g/dL 10.8 g/dL Hematocrit 39.3 % 33.6 % Mean Corpuscular Volume 101.0 fL 100.3 fL Mean Corpuscular Hemoglobin 32.1 pg 32.2 pg Mean Corpuscular Hemoglobin Concent 31.8 g/dl 32.1 g/dl Platelet Count 166 K/uL 175 K/uL Mean Platelet Volume 10.4 fL 10.4 fL Neutrophils (%) (Auto) 88.9 % Lymphocytes (%) (Auto) 9.0 % Monocytes (%) (Auto) 0.6 % Eosinophils (%) (Auto) 1.2 % Basophils (%) (Auto) 0.0 % Neutrophils # (Auto) 2.88 K/uL Lymphocytes # (Auto) 0.29 K/uL Monocytes # (Auto) 0.02 K/uL Eosinophils # (Auto) 0.04 K/uL Basophils # (Auto) 0.00 K/uL RDW Standard Deviation 52.0 fL 52.4 fL RDW Coefficient of Variation 14.2 % 14.3 % Immature Granulocyte % (Auto) 0.3 % Immature Granulocyte # (Auto) 0.01 K/uL Erythrocyte Sedimentation Rate 18 mm/hr Sodium Level 140 mmol/L 139 mmol/L Potassium Level 3.8 mmol/L mmol/L 3.9 mmol/L Chloride Level 108 mmol/L 106 mmol/L Carbon Dioxide Level 27 mmol/L 28 mmol/L Anion Gap 5.0 mmol/L 5.0 mmol/L Blood Urea Nitrogen 20 mg/dl 31 mg/dl Creatinine 1.52 mg/dl 1.70 mg/dl Est Creatinine Clear Calc Drug Dose 35.5 ml/min 31.8 ml/min Estimated GFR () 37.1 32.4 Estimated GFR (Non- 32.0 28.0 BUN/Creatinine Ratio 13.3 18.5 Random Glucose 117 mg/dl 84 mg/dl Calcium Level 8.7 mg/dl 8.2 mg/dl Total Bilirubin 0.6 mg/dl 0.6 mg/dl Aspartate Amino Transf (AST/SGOT) 13 U/L U/L 29 U/L Alanine Aminotransferase (ALT/SGPT) 17 U/L 58 U/L Alkaline Phosphatase 76 U/L 67 U/L C-Reactive Protein 0.55 mg/dl Total Protein 6.8 gm/dl 6.3 gm/dl Albumin 3.3 gm/dl 2.9 gm/dl Globulin 3.5 gm/dl 3.4 gm/dl Albumin/Globulin Ratio 0.9 0.9 Urine Color YELLOW Urine Appearance CLEAR Urine pH 5.0 Urine Specific [place] 1.018 Urine Protein NEG Urine Glucose (UA) NEG Urine Ketones NEG Urine Occult Blood 1+ Urine Nitrite NEG Urine Bilirubin NEG Urine Urobilinogen NEG Urine Leukocyte Esterase SMALL Urine WBC (Auto) 5-10 /hpf Urine RBC (Auto) 5-10 /hpf Urine Hyaline Casts (Auto) 1-5 /lpf Urine Epithelial Cells (Auto) >30 /lpf Urine Bacteria (Auto) 1+ Assessment and Plan (1) Ureteral stone (2) Abdominal pain 5mm right ureteral stone. [place]. Worsening clinically with elevated WBC and Cr. Fever. Needs cysto and stent to decompress obstruction. Discussed case with Dr. Smith as Dr. Rosado is not in today. He will be placing stent this afternoon.
--- NOTE | 2017-02-19 11:30 | NUR ---
A: All 0900 medications were given late. This RN called pharmacy to notify that none of patients medications were in room.
--- NOTE | 2017-02-19 12:21 | Progress Note ---
Subjective Date of Service: Feb 19, 2017. Subjective Pt evaluation today including: conversation w/ patient, physical exam, chart review, lab review, review of studies Voiding: no voiding problems Called by the initial consulting service to assist with possible intervention ( stent). Ms. Quiñones was admitted over the weekend with an obstructing right ureteral calculus. Since admission, a conservative trial of passage has been attempted, but, unfortunately, her condition has declined somewhat today prompting a decision to intervene. She denies subjective fevers, chills, rigors. No hematuria Constant right flank pain No dysuria No prior hx of stones. No nausea. Vital Signs Past 12 Hours Date Time Temp Pulse Resp B/P (MAP) Pulse Ox O2 Delivery O2 Flow Rate FiO2 02/19/17 08:16 Room Air 02/19/17 07:09 37.1 71 16 104/57 (73) 95 Room Air 02/19/17 08:15 02/19/17 08:15 02/19/17 09:27 Test 02/18/17 14:20 02/18/17 18:30 02/19/17 08:15 02/19/17 09:27 Immature Granulocyte % (Auto) 0.3 % White Blood Count 3.24 K/uL (4.8-10.8) Red Blood Count 3.89 M/uL (4.2-5.4) 3.35 M/uL (4.2-5.4) Hemoglobin 12.5 g/dL (12.0-16.0) Hematocrit 39.3 % (37-47) Mean Corpuscular Volume 101.0 fL (80-100) 100.3 fL (80-100) Mean Corpuscular Hemoglobin 32.1 pg (25-34) 32.2 pg (25-34) Mean Corpuscular Hemoglobin Concent 31.8 g/dl (32-36) 32.1 g/dl (32-36) Platelet Count 166 K/uL (130-400) Mean Platelet Volume 10.4 fL (7.4-10.4) 10.4 fL (7.4-10.4) Neutrophils (%) (Auto) 88.9 % Lymphocytes (%) (Auto) 9.0 % Monocytes (%) (Auto) 0.6 % Eosinophils (%) (Auto) 1.2 % Basophils (%) (Auto) 0.0 % Neutrophils # (Auto) 2.88 K/uL (1.4-6.5) Lymphocytes # (Auto) 0.29 K/uL (1.2-3.4) Monocytes # (Auto) 0.02 K/uL (0.11-0.59) Eosinophils # (Auto) 0.04 K/uL (0-0.5) Basophils # (Auto) 0.00 K/uL (0-0.2) Immature Granulocyte # (Auto) 0.01 K/uL (0.00-0.02) Erythrocyte Sedimentation Rate 18 mm/hr (0-21) C-Reactive Protein 0.55 mg/dl (0-0.29) Urine Color YELLOW Urine Appearance CLEAR (CLEAR) Urine pH 5.0 (4.5-7.5) Urine Specific [place] 1.018 (1.000-1.030) Urine Protein NEG (NEG) Urine Glucose (UA) NEG (NEG) Urine Ketones NEG (NEG) Urine Occult Blood 1+ (NEG) Urine Nitrite NEG (NEG) Urine Bilirubin NEG (NEG) Urine Urobilinogen NEG (NEG) Urine Leukocyte Esterase SMALL (NEG) Urine WBC (Auto) 5-10 /hpf (0-5) Urine RBC (Auto) 5-10 /hpf (0-4) Urine Hyaline Casts (Auto) 1-5 /lpf (0-5) Urine Epithelial Cells (Auto) >30 /lpf (0-5) Urine Bacteria (Auto) 1+ (NEG) RDW Standard Deviation 52.4 fL (36.4-46.3) RDW Coefficient of Variation 14.3 % (11.5-14.5) Anion Gap 5.0 mmol/L (3-11) Est Creatinine Clear Calc Drug Dose 31.8 ml/min Estimated GFR () 32.4 Estimated GFR (Non- 28.0 BUN/Creatinine Ratio 18.5 (10-20) Calcium Level 8.2 mg/dl (8.5-10.1) Total Bilirubin 0.6 mg/dl (0.2-1) Alanine Aminotransferase (ALT/SGPT) 58 U/L (12-78) Alkaline Phosphatase 67 U/L (45-117) Total Protein 6.3 gm/dl (6.4-8.2) Albumin 2.9 gm/dl (3.4-5.0) Globulin 3.4 gm/dl (2.5-4.0) Albumin/Globulin Ratio 0.9 (0.9-2) Aspartate Amino Transf (AST/SGOT) 29 U/L (15-37) Problem List Medical Problems: (1) Fall Status: Acute (2) Hand contusion Status: Acute (3) Head injury Status: Acute (4) Knee contusion Status: Acute (5) Obstructive uropathy Status: Acute (6) Renal colic Status: Acute (7) Shoulder contusion Status: Acute Review of Systems Constitutional: No see HPI, No fever, No chills, No sweats, No weight loss, No weakness, No fatigue, No problem reported Eyes: No see HPI, No worsening of vision, No eye pain, No redness, No discharge , No diplopia, No problem reported ENT: No see HPI, No hearing loss, No unusual epistaxis, No nasal symptoms, No sore throat, No tinnitus, No dental problems, No trouble swallowing, No problem reported Respiratory: No see HPI, No cough, No sputum, No wheezing, No shortness of breath, No dyspnea on exertion, No dyspnea at rest, No hemoptysis, No problem reported Cardiac: No see HPI, No chest pain, No orthopnea, No PND, No edema, No claudication, No palpitations, No problem reported Abdomen: + pain Musculoskeletal: No see HPI, No joint pain, No muscle pain, No swelling, No calf pain, No problem reported Female : + problem reported Neurologic: No see HPI, No memory loss, No paralysis, No weakness, No numbness/ tingling, No vertigo, No balance problems, No problem reported Psychiatric: No see HPI, No depression symptoms, No anhedonism, No anxiety, No insomnia, No substance abuse, No problem reported Heme: No see HPI, No abnormal bleeding/bruising, No clotting problems, No swollen lymph nodes, No night sweats, No problem reported Skin: No see HPI, No rash, No itch, No new/changing skin lesions, No color change, No bleeding, No problem reported All Other Systems: Reviewed and Negative Objective Vital Signs Date Time Temp Pulse Resp B/P (MAP) Pulse Ox O2 Delivery O2 Flow Rate FiO2 02/19/17 08:16 Room Air 02/19/17 07:09 37.1 71 16 104/57 (73) 95 Room Air 02/18/17 23:15 Room Air 02/18/17 23:09 37.7 71 18 100/55 (70) 95 Room Air 02/18/17 19:51 37.3 02/18/17 19:45 37.6 02/18/17 16:59 38.4 02/18/17 15:47 37.9 02/18/17 15:45 Room Air 02/18/17 15:14 38.4 80 18 98/59 (72) 92 Room Air 02/18/17 13:54 36.8 02/18/17 13:10 37.2 82 20 132/78 (96) 93 Room Air Physical Exam General Appearance: WD/WN, no apparent distress Eyes: normal inspection ENT: hearing grossly normal Neck: supple Respiratory/Chest: no respiratory distress, no accessory muscle use Cardiovascular: regular rate, rhythm Abdomen: non tender (no significant CVA tenderness on exam), soft Extremities: no pedal edema, no calf tenderness Neurologic/Psychiatric: alert, normal mood/affect, oriented x 3 Skin: warm/dry Lymphatic: no adenopathy Laboratory Results Last 24 Hours Test 02/18/17 14:20 02/18/17 18:30 02/19/17 08:15 02/19/17 09:27 White Blood Count 3.24 K/uL 25.60 K/uL Red Blood Count 3.89 M/uL 3.35 M/uL Hemoglobin 12.5 g/dL 10.8 g/dL Hematocrit 39.3 % 33.6 % Mean Corpuscular Volume 101.0 fL 100.3 fL Mean Corpuscular Hemoglobin 32.1 pg 32.2 pg Mean Corpuscular Hemoglobin Concent 31.8 g/dl 32.1 g/dl Platelet Count 166 K/uL 175 K/uL Mean Platelet Volume 10.4 fL 10.4 fL Neutrophils (%) (Auto) 88.9 % Lymphocytes (%) (Auto) 9.0 % Monocytes (%) (Auto) 0.6 % Eosinophils (%) (Auto) 1.2 % Basophils (%) (Auto) 0.0 % Neutrophils # (Auto) 2.88 K/uL Lymphocytes # (Auto) 0.29 K/uL Monocytes # (Auto) 0.02 K/uL Eosinophils # (Auto) 0.04 K/uL Basophils # (Auto) 0.00 K/uL RDW Standard Deviation 52.0 fL 52.4 fL RDW Coefficient of Variation 14.2 % 14.3 % Immature Granulocyte % (Auto) 0.3 % Immature Granulocyte # (Auto) 0.01 K/uL Erythrocyte Sedimentation Rate 18 mm/hr Sodium Level 140 mmol/L 139 mmol/L Potassium Level 3.8 mmol/L mmol/L 3.9 mmol/L Chloride Level 108 mmol/L 106 mmol/L Carbon Dioxide Level 27 mmol/L 28 mmol/L Anion Gap 5.0 mmol/L 5.0 mmol/L Blood Urea Nitrogen 20 mg/dl 31 mg/dl Creatinine 1.52 mg/dl 1.70 mg/dl Est Creatinine Clear Calc Drug Dose 35.5 ml/min 31.8 ml/min Estimated GFR () 37.1 32.4 Estimated GFR (Non- 32.0 28.0 BUN/Creatinine Ratio 13.3 18.5 Random Glucose 117 mg/dl 84 mg/dl Calcium Level 8.7 mg/dl 8.2 mg/dl Total Bilirubin 0.6 mg/dl 0.6 mg/dl Aspartate Amino Transf (AST/SGOT) 13 U/L U/L 29 U/L Alanine Aminotransferase (ALT/SGPT) 17 U/L 58 U/L Alkaline Phosphatase 76 U/L 67 U/L C-Reactive Protein 0.55 mg/dl Total Protein 6.8 gm/dl 6.3 gm/dl Albumin 3.3 gm/dl 2.9 gm/dl Globulin 3.5 gm/dl 3.4 gm/dl Albumin/Globulin Ratio 0.9 0.9 Urine Color YELLOW Urine Appearance CLEAR Urine pH 5.0 Urine Specific [place] 1.018 Urine Protein NEG Urine Glucose (UA) NEG Urine Ketones NEG Urine Occult Blood 1+ Urine Nitrite NEG Urine Bilirubin NEG Urine Urobilinogen NEG Urine Leukocyte Esterase SMALL Urine WBC (Auto) 5-10 /hpf Urine RBC (Auto) 5-10 /hpf Urine Hyaline Casts (Auto) 1-5 /lpf Urine Epithelial Cells (Auto) >30 /lpf Urine Bacteria (Auto) 1+ Assessment and Plan Right ureteral calculus; leukocytosis; progressive renal dysfunction - we reviewed the progression of symptoms and objective findings since admission and discussed intervention in the form of cysto and right ureteral stent - consents were completed and placed on the chart. - shortly after leaving the room, however, the nursing staff called to report that Ms. Quiñones passed a large stone - she currently feels well - based on her CT findings, I suspect this was the offending stone - plan to hold on intervention now - KUB (may be of limited utility based on her habitus) - if asymptomatic and labs improve overnight, avoid all interventions.
--- NOTE | 2017-02-19 13:54 | NUR ---
Case Management: Received call from floor stating pt would like to speak with me as she has financial concerns. I met with pt at bedside. Two daughters and male visitor present. Pt gave me permission to speak with family present. Pt states she has outstanding bill from a recent cataract surgery. States she spoke to someone and was told she would needed to provide them with her income history and she was unable to locate this information. States she plans to call the Social Security Office. Advised pt that if she would receive a bill from the hospital she can contact the Financial Counselor but she would need to have her financial records on hand to be applied for free care. Pt and family verbalized understanding. Pt states her income is very low and states she is having difficulty affording her needs. Encouraged pt and family to also contact the [place] Assistance [facility] to see if pt qualifies for any other services. They verbalized understanding. Daughter states their main concern at this point is pt's kidney stone and not the financial issues. Pt did not verbalize any other concerns to me at this time. Discharge plan is for her to return home when medically stable. Case Management to follow.
--- NOTE | 2017-02-19 14:10 | NUR ---
A: CLAUDIA notified of low urine output Addendum: 02/19/17 at 1411 by Roxane LAI Amended: Links added.
[2017-02-19] MEDS: ACETAMINOPHEN 325 MG TAB PO PRN ×2 (14:29→22:56)
--- NOTE | 2017-02-19 14:35 | Progress Note ---
Internal Med Progress Note Date of Service: Feb 19, 2017. Provider Documentation: SUBJECTIVE: Seen and examined at bedside Spontaneously passed the stone Flank pain resolved Denies hematuria Family at bedside No other complaints OBJECTIVE: Vital Signs-as noted below Physical Exam: General Appearance:Obese, no apparent distress Head: normocephalic, Atraumatic Eyes: normal inspection, EOMI, PERRL Neck: supple, Trachea midline Respiratory/Chest: Decreased breath sounds, CTA Cardiovascular: S1, S2, No murmur Abdomen/GI:Soft, Non tender, Bowel sounds present Extremities/Musculoskelatal:normal inspection, 1+ B/L edema Neurologic/Psych:AAOX3, grossly no focal neurological deficits Skin: normal color, warm Lab data as noted below. ASSESSMENT & PLAN: SIRS Right Ureteral Stone: Moderate R hydroureteronephrosis secondary to above Spontaneously passed the stone Urology on board Blood culture: pending KAYDEN on CKD III: Likely secondary to above Continue IV fluids Monitor renal function Hold Lasix, lisinopril Continue IV fluids Chronic back pain: On Fentanyl, Tramadol at home Bowel regimen to prevent constipation H/O CAD S/P Stent no cardiac symptoms last cardiac cath in 07/2016, stable CAD continue ASA, plavix, BB, Indur DVT Px: Heparin SQ Code Status: Full Code Vital Signs: Date Time Temp Pulse Resp B/P (MAP) Pulse Ox O2 Delivery O2 Flow Rate FiO2 02/19/17 23:40 Room Air 02/19/17 22:52 37.1 76 16 147/74 (98) 92 Room Air 02/19/17 15:29 93/61 (72) 02/19/17 15:20 Room Air 02/19/17 15:14 87/52 (64) 02/19/17 15:14 36.8 78 16 72/46 (55) 93 Room Air 02/19/17 08:16 Room Air Lab Results: Results Past 24 Hours Test 02/19/17 08:15 02/19/17 09:27 02/19/17 16:53 02/20/17 06:34 Range/Units White Blood Count 25.60 14.67 4.8-10.8 K/uL Red Blood Count 3.35 3.15 4.2-5.4 M/uL Hemoglobin 10.8 10.1 12.0-16.0 g/dL Hematocrit 33.6 31.7 37-47 % Mean Corpuscular Volume 100.3 100.6 80-100 fL Mean Corpuscular Hemoglobin 32.2 32.1 25-34 pg Mean Corpuscular Hemoglobin Concent 32.1 31.9 32-36 g/dl RDW Standard Deviation 52.4 52.4 36.4-46.3 fL RDW Coefficient of Variation 14.3 14.3 11.5-14.5 % Platelet Count 175 162 130-400 K/uL Mean Platelet Volume 10.4 10.3 7.4-10.4 fL Sodium Level 139 136-145 mmol/L Potassium Level 3.9 3.5-5.1 mmol/L Chloride Level 106 98-107 mmol/L Carbon Dioxide Level 28 21-32 mmol/L Anion Gap 5.0 3-11 mmol/L Blood Urea Nitrogen 31 7-18 mg/dl Creatinine 1.70 0.60-1.20 mg/dl Est Creatinine Clear Calc Drug Dose 31.8 ml/min Estimated GFR () 32.4 Estimated GFR (Non- 28.0 BUN/Creatinine Ratio 18.5 10-20 Random Glucose 84 70-99 mg/dl Calcium Level 8.2 8.5-10.1 mg/dl Total Bilirubin 0.6 0.2-1 mg/dl Aspartate Amino Transf (AST/SGOT) 29 15-37 U/L Alanine Aminotransferase (ALT/SGPT) 58 12-78 U/L Alkaline Phosphatase 67 45-117 U/L Total Protein 6.3 6.4-8.2 gm/dl Albumin 2.9 3.4-5.0 gm/dl Globulin 3.4 2.5-4.0 gm/dl Albumin/Globulin Ratio 0.9 0.9-2 Prothrombin Time 10.7 9.0-12.0 SECONDS Prothromb Time International Ratio 1.0 0.9-1.1 Activated Partial Thromboplast Time 18.2 21.0-31.0 SECONDS Partial Thromboplastin Ratio 0.7 Neutrophils (%) (Auto) 74.2 % Lymphocytes (%) (Auto) 15.3 % Monocytes (%) (Auto) 8.7 % Eosinophils (%) (Auto) 1.3 % Basophils (%) (Auto) 0.1 % Neutrophils # (Auto) 10.88 1.4-6.5 K/uL Lymphocytes # (Auto) 2.24 1.2-3.4 K/uL Monocytes # (Auto) 1.28 0.11-0.59 K/uL Eosinophils # (Auto) 0.19 0-0.5 K/uL Basophils # (Auto) 0.02 0-0.2 K/uL Immature Granulocyte % (Auto) 0.4 % Immature Granulocyte # (Auto) 0.06 0.00-0.02 K/uL
[2017-02-19 15:14] VITALS: BP_SYST 72; BP_SYST 87; BP_DIAS 46; BP_DIAS 52; PULSE 78; TEMP 36.8; O2SAT 93
[2017-02-19 15:29] VITALS: BP 93/61
--- NOTE | 2017-02-19 16:15 | DIAGNOSTIC IMAGING REPORT ---
KUB HISTORY: Follow-up study in a patient with nephrolithiasis . Acute right-sided flank pain kidney stone COMPARISON: KUB 01/02/2013, CT 02/17/2017 FINDINGS: The bowel gas pattern is non-obstructive. There is no organomegaly. The previously described 5 mm calculus of the mid right ureter at the level of L4-L5 is no longer identified. Calcifications of the pelvis are seen suggesting phleboliths. No definite nephrolithiasis identified. No pneumoperitoneum or pneumatosis. No fracture. Multilevel advanced degenerative changes of the spine. IMPRESSION: No renal or ureteral stones identified on this exam. The previously described 5 mm calculus of the mid right ureter at the level of L4-L5 is not seen. Electronically signed by: Callum Dolan M.D. 02/19/2017 4:14 PM Dictated Date/Time: 02/19/2017 4:11 PM
[2017-02-19] MEDS: SODIUM CHLORIDE 0.9% 1000ML 1,000 ML IV SCH (16:16)
--- NOTE | 2017-02-19 17:23 | NUR ---
ID note: A/Ox4. denies c/o pain. BP decreased, otherwise VSS. tolerating low Na/AHA diet. NSS@80. voiding without difficulty. straining urine. OOB 1 assist and walker. passed stone this afternoon. KUB performed. Possible D/C tomorrow. call marin in reach.
[2017-02-19 17:42] LABS: PTT PATIENT 18.2 SECONDS (21.0-31.0)
[2017-02-19] MEDS: SIMVASTATIN 40 MG TAB PO SCH (21:13)
[2017-02-19] MEDS: HEPARIN SOD 5000 UNIT/0.5 ML CARP SQ SCH (21:15)
[2017-02-19 22:52] VITALS: BP 147/74; PULSE 76; TEMP 37.1; O2SAT 92
[2017-02-20] MEDS: SODIUM CHLORIDE 0.9% 1000ML 1,000 ML IV SCH ×2 (03:58→16:31)
[2017-02-20] MEDS: HEPARIN SOD 5000 UNIT/0.5 ML CARP SQ SCH ×3 (05:19→21:16)
[2017-02-20] MEDS: LEVOTHYROXINE 125 MCG TAB PO SCH (05:20)
[2017-02-20 07:16] LABS: BASO % 0.1 %; BASO ABS # 0.02 K/uL (0-0.2); EOS % 1.3 %; EOS ABS # 0.19 K/uL (0-0.5); HEMATOCRIT 31.7 % (37-47); HEMOGLOBIN 10.1 g/dL (12.0-16.0); IG# 0.06 K/uL (0.00-0.02); LYMPH % 15.3 %; LYMPH ABS # 2.24 K/uL (1.2-3.4); MEAN CELL VOLUME 100.6 fL (80-100); MEAN CORPUSCULAR HEMOGLOBIN 32.1 pg (25-34); MEAN CORPUSCULAR HGB CONC 31.9 g/dl (32-36); MEAN PLATELET VOLUME 10.3 fL (7.4-10.4); MONO % 8.7 %; MONO ABS # 1.28 K/uL (0.11-0.59); NEUT % 74.2 %; NEUT ABS # 10.88 K/uL (1.4-6.5); PLATELET COUNT 162 K/uL (130-400); RED CELL DISTRIBUTION WIDTH CV 14.3 % (11.5-14.5); RED CELL DISTRIBUTION WIDTH SD 52.4 fL (36.4-46.3); WHITE BLOOD COUNT 14.67 K/uL (4.8-10.8)
[2017-02-20 07:46] LABS: CALCIUM 8.4 mg/dl (8.5-10.1); CREATININE 1.15 mg/dl (0.60-1.20); POTASSIUM 3.9 mmol/L (3.5-5.1)
[2017-02-20 07:48] VITALS: BP 128/82; PULSE 68; TEMP 36.7; O2SAT 94
--- NOTE | 2017-02-20 08:20 | Progress Note ---
Subjective Date of Service: Feb 20, 2017. Subjective Pt evaluation today including: conversation w/ patient, physical exam, chart review, lab review Passed stone yesterday afternoon - no pain or discomfort since that time - anxious to go home Vital Signs Past 12 Hours Date Time Temp Pulse Resp B/P (MAP) Pulse Ox O2 Delivery O2 Flow Rate FiO2 02/20/17 07:48 36.7 68 12 128/82 (97) 94 Room Air 02/19/17 23:40 Room Air 02/19/17 22:52 37.1 76 16 147/74 (98) 92 Room Air 02/20/17 06:34 Red Blood Count 3.15, Mean Corpuscular Volume 100.6, Mean Corpuscular Hemoglobin 32.1, Mean Corpuscular Hemoglobin Concent 31.9, Mean Platelet Volume 10.3, Neutrophils (%) (Auto) 74.2, Lymphocytes (%) (Auto) 15.3, Monocytes (%) ( Auto) 8.7, Eosinophils (%) (Auto) 1.3, Basophils (%) (Auto) 0.1, Neutrophils # ( Auto) 10.88, Lymphocytes # (Auto) 2.24, Monocytes # (Auto) 1.28, Eosinophils # ( Auto) 0.19, Basophils # (Auto) 0.02 02/20/17 06:34 Test 02/19/17 09:27 02/19/17 16:53 02/20/17 06:34 Aspartate Amino Transf (AST/SGOT) 29 U/L (15-37) Prothrombin Time 10.7 SECONDS (9.0-12.0) Prothromb Time International Ratio 1.0 (0.9-1.1) Activated Partial Thromboplast Time 18.2 SECONDS (21.0-31.0) Partial Thromboplastin Ratio 0.7 White Blood Count 14.67 K/uL (4.8-10.8) Red Blood Count 3.15 M/uL (4.2-5.4) Hemoglobin 10.1 g/dL (12.0-16.0) Hematocrit 31.7 % (37-47) Mean Corpuscular Volume 100.6 fL (80-100) Mean Corpuscular Hemoglobin 32.1 pg (25-34) Mean Corpuscular Hemoglobin Concent 31.9 g/dl (32-36) Platelet Count 162 K/uL (130-400) Mean Platelet Volume 10.3 fL (7.4-10.4) Neutrophils (%) (Auto) 74.2 % Lymphocytes (%) (Auto) 15.3 % Monocytes (%) (Auto) 8.7 % Eosinophils (%) (Auto) 1.3 % Basophils (%) (Auto) 0.1 % Neutrophils # (Auto) 10.88 K/uL (1.4-6.5) Lymphocytes # (Auto) 2.24 K/uL (1.2-3.4) Monocytes # (Auto) 1.28 K/uL (0.11-0.59) Eosinophils # (Auto) 0.19 K/uL (0-0.5) Basophils # (Auto) 0.02 K/uL (0-0.2) RDW Standard Deviation 52.4 fL (36.4-46.3) RDW Coefficient of Variation 14.3 % (11.5-14.5) Immature Granulocyte % (Auto) 0.4 % Immature Granulocyte # (Auto) 0.06 K/uL (0.00-0.02) Anion Gap 7.0 mmol/L (3-11) Est Creatinine Clear Calc Drug Dose 47.0 ml/min Estimated GFR () 52.0 Estimated GFR (Non- 44.9 BUN/Creatinine Ratio 18.2 (10-20) Calcium Level 8.4 mg/dl (8.5-10.1) Magnesium Level 2.2 mg/dl (1.8-2.4) Problem List Medical Problems: (1) Fall Status: Acute (2) Hand contusion Status: Acute (3) Head injury Status: Acute (4) Knee contusion Status: Acute (5) Obstructive uropathy Status: Acute (6) Renal colic Status: Acute (7) Shoulder contusion Status: Acute Review of Systems Constitutional: No see HPI, No fever, No chills, No sweats, No weight loss, No weakness, No fatigue, No problem reported Abdomen: No see HPI, No pain, No nausea, No vomiting, No diarrhea, No constipation, No GI bleeding, No problem reported Objective Vital Signs Date Time Temp Pulse Resp B/P (MAP) Pulse Ox O2 Delivery O2 Flow Rate FiO2 02/20/17 07:48 36.7 68 12 128/82 (97) 94 Room Air 02/19/17 23:40 Room Air 02/19/17 22:52 37.1 76 16 147/74 (98) 92 Room Air 02/19/17 15:29 93/61 (72) 02/19/17 15:20 Room Air 02/19/17 15:14 87/52 (64) 02/19/17 15:14 36.8 78 16 72/46 (55) 93 Room Air Physical Exam General Appearance: no apparent distress ENT: hearing grossly normal Respiratory/Chest: no respiratory distress Abdomen: non tender, soft Extremities: no pedal edema Neurologic/Psychiatric: alert, normal mood/affect, oriented x 3 Laboratory Results Last 24 Hours Test 02/19/17 09:27 02/19/17 16:53 02/20/17 06:34 Potassium Level 3.9 mmol/L 3.9 mmol/L Aspartate Amino Transf (AST/SGOT) 29 U/L Prothrombin Time 10.7 SECONDS Prothromb Time International Ratio 1.0 Activated Partial Thromboplast Time 18.2 SECONDS Partial Thromboplastin Ratio 0.7 White Blood Count 14.67 K/uL Red Blood Count 3.15 M/uL Hemoglobin 10.1 g/dL Hematocrit 31.7 % Mean Corpuscular Volume 100.6 fL Mean Corpuscular Hemoglobin 32.1 pg Mean Corpuscular Hemoglobin Concent 31.9 g/dl Platelet Count 162 K/uL Mean Platelet Volume 10.3 fL Neutrophils (%) (Auto) 74.2 % Lymphocytes (%) (Auto) 15.3 % Monocytes (%) (Auto) 8.7 % Eosinophils (%) (Auto) 1.3 % Basophils (%) (Auto) 0.1 % Neutrophils # (Auto) 10.88 K/uL Lymphocytes # (Auto) 2.24 K/uL Monocytes # (Auto) 1.28 K/uL Eosinophils # (Auto) 0.19 K/uL Basophils # (Auto) 0.02 K/uL RDW Standard Deviation 52.4 fL RDW Coefficient of Variation 14.3 % Immature Granulocyte % (Auto) 0.4 % Immature Granulocyte # (Auto) 0.06 K/uL Sodium Level 142 mmol/L Chloride Level 111 mmol/L Carbon Dioxide Level 24 mmol/L Anion Gap 7.0 mmol/L Blood Urea Nitrogen 21 mg/dl Creatinine 1.15 mg/dl Est Creatinine Clear Calc Drug Dose 47.0 ml/min Estimated GFR () 52.0 Estimated GFR (Non- 44.9 BUN/Creatinine Ratio 18.2 Random Glucose 87 mg/dl Calcium Level 8.4 mg/dl Magnesium Level 2.2 mg/dl Assessment and Plan Right ureteral calculus; leukocytosis; progressive renal dysfunction - passed her stone yesterday (KUB - no stone visualized) - feeling much better today - leukocytosis improving - renal function has normalized - likely suited for d/c home today with out pt f/u
[2017-02-20] MEDS: TAMSULOSIN HCL 0.4 MG CAP PO SCH (08:34)
[2017-02-20] MEDS: FLUOXETINE HCL 20 MG CAP PO SCH ×2 (08:34→21:04)
[2017-02-20] MEDS: DOCUSATE SODIUM/SENNA 50/8.6MG TAB PO SCH (08:35)
[2017-02-20] MEDS: GABAPENTIN 100 MG CAP PO SCH ×3 (08:35→21:03)
[2017-02-20] MEDS: ISOSORBIDE MONONITRATE 60 MG TABCR PO SCH (08:35)
[2017-02-20] MEDS: ASPIRIN 81 MG ECTAB PO SCH (08:35)
[2017-02-20] MEDS: METOPROLOL SUCC 25MG EXT REL TAB PO SCH (08:35)
[2017-02-20] MEDS: PANTOprazole SOD 40 MG TAB PO SCH (08:35)
[2017-02-20] MEDS: CLOPIDOGREL BISULFATE 75 MG TAB PO SCH (08:36)
[2017-02-20] MEDS: BuPROPion SR 100 MG TABCR PO SCH (08:36)
[2017-02-20] MEDS: POTASSIUM CHLORIDE 10 MEQ TABCR PO SCH (08:37)
[2017-02-20] MEDS: CHECK FENTANYL PATCH PLACEMENT SCH ×6 (08:44→23:35)
[2017-02-20] MEDS: PIPERACILL/TAZOBAC IV 4.5 GM in DEXTROSE 5% 100ML 100 ML IV SCH ×3 (08:46→23:32)
[2017-02-20 08:57] VITALS: O2SAT 94
[2017-02-20] MEDS ORDERED: FENTANYL PATCH REMOVE & WASTE SCH ×2 (08:59)
[2017-02-20] MEDS ORDERED: FENTANYL 12 MCG/HR TDSY TD SCH (09:00)
[2017-02-20] MEDS ORDERED: FENTANYL 50 MCG/HR TDSY TD SCH (09:00)
[2017-02-20 10:22] VITALS: BP 128/82; PULSE 68; TEMP 36.7; O2SAT 94
[2017-02-20 11:50] VITALS: BP 124/80; PULSE 60; TEMP 36.7; O2SAT 94
[2017-02-20 14:53] VITALS: BP 119/63; PULSE 72; TEMP 36.8; O2SAT 95
[2017-02-20] MEDS: TRAMADOL HCL 50 MG TAB PO PRN ×2 (14:59→23:37)
--- NOTE | 2017-02-20 17:14 | Progress Note ---
Internal Med Progress Note Date of Service: Feb 20, 2017. Provider Documentation: SUBJECTIVE: Seen and examined at bedside Reports having diarrhea after prune juice today Flank pain resolved Denies hematuria, abd pain, chest pain, SOB No other complaints OBJECTIVE: Vital Signs-as noted below Physical Exam: General Appearance:Obese, no apparent distress Head: normocephalic, Atraumatic Eyes: normal inspection, EOMI, PERRL Neck: supple, Trachea midline Respiratory/Chest: Decreased breath sounds, CTA Cardiovascular: S1, S2, No murmur Abdomen/GI:Soft, Non tender, Bowel sounds present Extremities/Musculoskelatal:normal inspection, 1+ B/L edema Neurologic/Psych:AAOX3, grossly no focal neurological deficits Skin: normal color, warm Lab data as noted below. ASSESSMENT & PLAN: SIRS Right Ureteral Stone: Moderate R hydroureteronephrosis secondary to above Spontaneously passed the stone Appreciate Urology Input Blood culture: No growth to date Leukocytosis trending down Diarrhea: Stool for C.diff: negative monitor KAYDEN on CKD III: Likely secondary to above Resolved Decrease IV fluids Monitor renal function Hold Lasix, lisinopril for now Chronic back pain: On Fentanyl, Tramadol at home Bowel regimen to prevent constipation H/O CAD S/P Stent no cardiac symptoms last cardiac cath in 07/2016, stable CAD continue ASA, plavix, BB, Indur DVT Px: Heparin SQ Code Status: Full Code Vital Signs: Date Time Temp Pulse Resp B/P (MAP) Pulse Ox O2 Delivery O2 Flow Rate FiO2 02/20/17 14:53 36.8 72 18 119/63 (81) 95 Room Air 02/20/17 11:50 36.7 60 14 124/80 (95) 94 Room Air 02/20/17 10:22 36.7 68 12 94 Nasal Cannula 02/20/17 08:57 94 Room Air 02/20/17 07:55 Room Air 02/20/17 07:48 36.7 68 12 128/82 (97) 94 Room Air 02/19/17 23:40 Room Air 02/19/17 22:52 37.1 76 16 147/74 (98) 92 Room Air Lab Results: Results Past 24 Hours Test 02/20/17 06:34 Range/Units White Blood Count 14.67 4.8-10.8 K/uL Red Blood Count 3.15 4.2-5.4 M/uL Hemoglobin 10.1 12.0-16.0 g/dL Hematocrit 31.7 37-47 % Mean Corpuscular Volume 100.6 80-100 fL Mean Corpuscular Hemoglobin 32.1 25-34 pg Mean Corpuscular Hemoglobin Concent 31.9 32-36 g/dl Platelet Count 162 130-400 K/uL Mean Platelet Volume 10.3 7.4-10.4 fL Neutrophils (%) (Auto) 74.2 % Lymphocytes (%) (Auto) 15.3 % Monocytes (%) (Auto) 8.7 % Eosinophils (%) (Auto) 1.3 % Basophils (%) (Auto) 0.1 % Neutrophils # (Auto) 10.88 1.4-6.5 K/uL Lymphocytes # (Auto) 2.24 1.2-3.4 K/uL Monocytes # (Auto) 1.28 0.11-0.59 K/uL Eosinophils # (Auto) 0.19 0-0.5 K/uL Basophils # (Auto) 0.02 0-0.2 K/uL RDW Standard Deviation 52.4 36.4-46.3 fL RDW Coefficient of Variation 14.3 11.5-14.5 % Immature Granulocyte % (Auto) 0.4 % Immature Granulocyte # (Auto) 0.06 0.00-0.02 K/uL Sodium Level 142 136-145 mmol/L Potassium Level 3.9 3.5-5.1 mmol/L Chloride Level 111 98-107 mmol/L Carbon Dioxide Level 24 21-32 mmol/L Anion Gap 7.0 3-11 mmol/L Blood Urea Nitrogen 21 7-18 mg/dl Creatinine 1.15 0.60-1.20 mg/dl Est Creatinine Clear Calc Drug Dose 47.0 ml/min Estimated GFR () 52.0 Estimated GFR (Non- 44.9 BUN/Creatinine Ratio 18.2 10-20 Random Glucose 87 70-99 mg/dl Calcium Level 8.4 8.5-10.1 mg/dl Magnesium Level 2.2 1.8-2.4 mg/dl Microbiology Results 02/20/17 C.difficile Toxin B Gene (PCR) - Final, Complete No C. difficile toxin B gene detected
[2017-02-20] MEDS: SIMVASTATIN 40 MG TAB PO SCH (21:03)
[2017-02-20 23:10] VITALS: BP 131/71; PULSE 69; TEMP 37; O2SAT 94
[2017-02-21] MEDS: LEVOTHYROXINE 125 MCG TAB PO SCH (05:46)
[2017-02-21] MEDS: HEPARIN SOD 5000 UNIT/0.5 ML CARP SQ SCH ×2 (05:47→13:09)
[2017-02-21 07:49] VITALS: BP 132/70; PULSE 70; TEMP 36.6; O2SAT 94
[2017-02-21] MEDS: PIPERACILL/TAZOBAC IV 4.5 GM in DEXTROSE 5% 100ML 100 ML IV SCH (08:21)
[2017-02-21] MEDS: CHECK FENTANYL PATCH PLACEMENT SCH ×2 (08:26)
[2017-02-21 08:36] LABS: BASO % 0.2 %; BASO ABS # 0.02 K/uL (0-0.2); EOS % 2.2 %; HEMATOCRIT 34.9 % (37-47); HEMOGLOBIN 11.2 g/dL (12.0-16.0); IG# 0.02 K/uL (0.00-0.02); LYMPH % 24.1 %; LYMPH ABS # 2.18 K/uL (1.2-3.4); MEAN CELL VOLUME 99.1 fL (80-100); MEAN CORPUSCULAR HEMOGLOBIN 31.8 pg (25-34); MEAN CORPUSCULAR HGB CONC 32.1 g/dl (32-36); MEAN PLATELET VOLUME 10.1 fL (7.4-10.4); MONO % 6.3 %; MONO ABS # 0.57 K/uL (0.11-0.59); NEUT ABS # 6.05 K/uL (1.4-6.5); PLATELET COUNT 184 K/uL (130-400); RED CELL DISTRIBUTION WIDTH CV 13.9 % (11.5-14.5); RED CELL DISTRIBUTION WIDTH SD 49.9 fL (36.4-46.3); WHITE BLOOD COUNT 9.04 K/uL (4.8-10.8)
[2017-02-21] MEDS: TAMSULOSIN HCL 0.4 MG CAP PO SCH (08:52)
[2017-02-21] MEDS: ASPIRIN 81 MG ECTAB PO SCH (08:52)
[2017-02-21] MEDS: ISOSORBIDE MONONITRATE 60 MG TABCR PO SCH (08:52)
[2017-02-21] MEDS: GABAPENTIN 100 MG CAP PO SCH ×2 (08:53→13:09)
[2017-02-21] MEDS: POTASSIUM CHLORIDE 10 MEQ TABCR PO SCH (08:53)
[2017-02-21] MEDS: CLOPIDOGREL BISULFATE 75 MG TAB PO SCH (08:54)
[2017-02-21] MEDS: PANTOprazole SOD 40 MG TAB PO SCH (08:54)
[2017-02-21] MEDS: FLUOXETINE HCL 20 MG CAP PO SCH (08:54)
[2017-02-21] MEDS: METOPROLOL SUCC 25MG EXT REL TAB PO SCH (08:55)
[2017-02-21] MEDS: BuPROPion SR 100 MG TABCR PO SCH (08:55)
[2017-02-21] MEDS: DOCUSATE SODIUM/SENNA 50/8.6MG TAB PO SCH (08:55)
[2017-02-21 10:03] LABS: CALCIUM 8.9 mg/dl (8.5-10.1); CREATININE 0.97 mg/dl (0.60-1.20); POTASSIUM 3.9 mmol/L (3.5-5.1)
[2017-02-21] MEDS: SODIUM CHLORIDE 0.9% 1000ML 1,000 ML IV SCH (10:43)
--- NOTE | 2017-02-21 11:05 | Progress Note ---
Internal Med Progress Note Date of Service: Feb 21, 2017. Provider Documentation: SUBJECTIVE: Seen and examined at bedside Doing well today Diarrhea resolved Denies abd pain, chest pain, SOB No other complaints OBJECTIVE: Vital Signs-as noted below Physical Exam: General Appearance:Obese, no apparent distress Head: normocephalic, Atraumatic Eyes: normal inspection, EOMI, PERRL Neck: supple, Trachea midline Respiratory/Chest: Decreased breath sounds, CTA Cardiovascular: S1, S2, No murmur Abdomen/GI:Soft, Non tender, Bowel sounds present Extremities/Musculoskelatal:normal inspection, 1+ B/L edema Neurologic/Psych:AAOX3, grossly no focal neurological deficits Skin: normal color, warm Lab data as noted below. ASSESSMENT & PLAN: SIRS Right Ureteral Stone: Moderate R hydroureteronephrosis secondary to above Spontaneously passed the stone Appreciate Urology Input Blood culture: No growth to date Leukocytosis normalized Diarrhea: Resolved Stool for C.diff: negative KAYDEN on CKD III: Likely secondary to above Resolved DC IV fluids Monitor renal function Resume Lasix, lisinopril Chronic back pain: On Fentanyl, Tramadol at home Bowel regimen to prevent constipation H/O CAD S/P Stent no cardiac symptoms last cardiac cath in 07/2016, stable CAD continue ASA, plavix, BB, Indur DVT Px: Heparin SQ Code Status: Full Code Disposition: Plan to discharge home today Follow up with on 02/27/17 at 10:05AM Follow up with your Urologist on 03/15/17 at 12:30pm Seek immediate medical attention if your symptoms reoccur or worsen Vital Signs: Date Time Temp Pulse Resp B/P (MAP) Pulse Ox O2 Delivery O2 Flow Rate FiO2 02/21/17 07:49 36.6 70 16 132/70 (90) 94 Room Air 02/21/17 07:20 Room Air 02/20/17 23:10 37.0 69 16 131/71 (91) 94 Room Air 02/20/17 19:25 Room Air 02/20/17 14:53 36.8 72 18 119/63 (81) 95 Room Air 02/20/17 11:50 36.7 60 14 124/80 (95) 94 Room Air Lab Results: Results Past 24 Hours Test 02/21/17 07:36 Range/Units White Blood Count 9.04 4.8-10.8 K/uL Red Blood Count 3.52 4.2-5.4 M/uL Hemoglobin 11.2 12.0-16.0 g/dL Hematocrit 34.9 37-47 % Mean Corpuscular Volume 99.1 80-100 fL Mean Corpuscular Hemoglobin 31.8 25-34 pg Mean Corpuscular Hemoglobin Concent 32.1 32-36 g/dl Platelet Count 184 130-400 K/uL Mean Platelet Volume 10.1 7.4-10.4 fL Neutrophils (%) (Auto) 67.0 % Lymphocytes (%) (Auto) 24.1 % Monocytes (%) (Auto) 6.3 % Eosinophils (%) (Auto) 2.2 % Basophils (%) (Auto) 0.2 % Neutrophils # (Auto) 6.05 1.4-6.5 K/uL Lymphocytes # (Auto) 2.18 1.2-3.4 K/uL Monocytes # (Auto) 0.57 0.11-0.59 K/uL Eosinophils # (Auto) 0.20 0-0.5 K/uL Basophils # (Auto) 0.02 0-0.2 K/uL RDW Standard Deviation 49.9 36.4-46.3 fL RDW Coefficient of Variation 13.9 11.5-14.5 % Immature Granulocyte % (Auto) 0.2 % Immature Granulocyte # (Auto) 0.02 0.00-0.02 K/uL Sodium Level 140 136-145 mmol/L Potassium Level 3.9 3.5-5.1 mmol/L Chloride Level 109 98-107 mmol/L Carbon Dioxide Level 27 21-32 mmol/L Anion Gap 4.0 3-11 mmol/L Blood Urea Nitrogen 12 7-18 mg/dl Creatinine 0.97 0.60-1.20 mg/dl Est Creatinine Clear Calc Drug Dose 55.7 ml/min Estimated GFR () 63.9 Estimated GFR (Non- 55.2 BUN/Creatinine Ratio 12.7 10-20 Random Glucose 86 70-99 mg/dl Calcium Level 8.9 8.5-10.1 mg/dl Magnesium Level 2.2 1.8-2.4 mg/dl Microbiology Results 02/20/17 C.difficile Toxin B Gene (PCR) - Final, Complete No C. difficile toxin B gene detected
--- NOTE | 2017-02-21 11:07 | Discharge Summary ---
Discharge Summary Date of Service Feb 21, 2017. Discharge Summary Admission Date: Feb 17, 2017 at 23:17 Discharge Date: Feb 21, 2017 Discharge Disposition: Home Principal Diagnosis: Ureteral Stone, KAYDEN Procedures: CT abdomen: 1. Obstructing 5 mm calcification mid right ureter. 2. Moderate right hydroureteronephrosis with a trace amount of perinephric infiltrative change. 3. Nonobstructing punctate calcification left kidney. 4. Chronic sigmoid diverticulosis with no evidence for acute diverticulitis. Consultations: Urology Pending Studies/Follow-Up: Follow up with on 02/27/17 at 10:05AM Follow up with your Urologist on 03/15/17 at 12:30pm Seek immediate medical attention if your symptoms reoccur or worsen Medication Reconciliation Continued Medications: Aspirin (Aspirin Ec) 81 Mg Tab 81 MG PO QAM Bupropion (Wellbutrin Sr) 100 Mg Ertab 100 MG PO QAM, TAB Cholecalciferol (Vitamin D) 1,000 Unit Tab 2000 UNIT PO DAILY Clobetasol Propionate (Temovate) 0.05 % Cre 1 APPLN TOP BID for 90 Days, #60 GM 3 Refills APPLY TWICE DAILY FOR 2 WEEKS THEN OFF FOR 1 WEEK THEN REPEAT Clopidogrel (Plavix) 75 Mg Tab 75 MG PO QAM, 0 Refills Cyanocobalamin (Vitamin B-12) 1,000 Mcg Tab 1000 MCG PO DAILY, TAB Docusate Sodium (Colace) 100 Mg Cap 100 MG PO BID for Constipation, CAP Fentanyl (Duragesic) 50 Mcg Tdsy 50 MCG TD CQ72HR, PATCH Fentanyl (Fentanyl) 12 Mcg Tdsy 12.5 MCG TOP Q3D Fluoxetine (Prozac) 40 Mg Cap 40 MG PO QAM Fluoxetine (Prozac) 20 Mg Cap 20 MG PO QPM, CAP Furosemide (Lasix) 20 Mg Tab 20 MG PO QAM, TAB Gabapentin (Neurontin) 100 Mg Cap 100 MG PO TID, CAP Isosorbide Mononitrate Ext Rel (Imdur Ext Rel) 60 Mg Ertab 60 MG PO QAM, TAB Levothyroxine Sodium (Synthroid) 125 Mcg Tab 125 MCG PO QAM, TAB Lisinopril (Zestril) 10 Mg Tab 10 MG PO QAM, TAB Lorazepam (Ativan) 0.5 Mg Tab 0.5 MG PO BID PRN for ANXIETY, TAB Metoprolol Succ (Toprol Xl) (Toprol-Xl) 25 Mg Tabcr 25 MG PO QAM Nitroglycerin (Nitrostat) 0.4 Mg Tab 0.4 MG UT PRN, 0 Refills Omeprazole (Prilosec) 20 Mg Capcr 20 MG PO QAM Potassium Chloride (Micro-K Ext Rel) 10 Meq Capcr 10 MEQ PO QAM, CAP TAKE 10MEQ DAILY WITH 20MG OF FUROSEMIDE Simvastatin (Zocor) 40 Mg Tab 40 MG PO HS Tramadol (Ultram) 50 Mg Tab 50 MG PO Q6HR PRN for Pain take 50mg up to four times a day as needed for pain. take each dose with 325mg of tylenol Admission Information HPI (per Admitting provider): 81 year old female with history of CAD, Mild Aortic Stenosis, other problems below presenting with right flank and abdominal pain starting today. Follows with Dr. Fowler for PCP and RAZ Regan for Cardiology. Patient was doing fine until this afternoon when she started to have intense sharp pain on the right flank pain region. Through the day, the pain worsened and also involved the RLQ region, associated with nausea and chills. Denies dysuria, oliguria, hematuria. At the ER, CT abdomen showed: 1. Obstructing 5 mm calcification mid right ureter. 2. Moderate right hydroureteronephrosis with a trace amount of perinephric infiltrative change. 3. Nonobstructing punctate calcification left kidney. She was given Morphine and Zofran. On exam, patient reports symptoms are starting to improve since medications were given. Denies chest pain, dyspnea, dizziness, palpitations, etc. Physical Exam (per Admitting): General Appearance: WD/WN, no apparent distress, + obese Head: normocephalic, atraumatic Eyes: normal inspection, PERRL, EOMI, sclerae normal ENT: normal ENT inspection, hearing grossly normal, pharynx normal Neck: supple, no adenopathy, thyroid normal, no JVD, trachea midline Respiratory/Chest: chest non-tender, lungs clear, normal breath sounds, no respiratory distress, no accessory muscle use Cardiovascular: regular rate, rhythm, no edema, no JVD, no murmur Abdomen/GI: normal bowel sounds, soft, + pertinent finding (RLQ tenderness, no CVA tenderness) Back: normal inspection, no CVA tenderness Extremities/Musculoskelatal: + pertinent finding (mild R LE edema (chronic per patient) no erythema/warmth/tenderness) 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, no motor/sensory deficits, alert , normal reflexes, oriented x 3 Skin: normal color, warm/dry, no rash Lymphatic: no adenopathy Hospital Course SIRS Right Ureteral Stone: Moderate R hydroureteronephrosis secondary to above Spontaneously passed the stone Appreciate Urology Input Blood culture: No growth to date Leukocytosis normalized Diarrhea: Resolved Stool for C.diff: negative KAYDEN on CKD III: Likely secondary to above Resolved DC IV fluids Monitor renal function Resume Lasix, lisinopril Chronic back pain: On Fentanyl, Tramadol at home Bowel regimen to prevent constipation H/O CAD S/P Stent no cardiac symptoms last cardiac cath in 07/2016, stable CAD continue ASA, plavix, BB, Indur DVT Px: Heparin SQ Code Status: Full Code Disposition: Plan to discharge home today Follow up with on 02/27/17 at 10:05AM Follow up with your Urologist on 03/15/17 at 12:30pm Seek immediate medical attention if your symptoms reoccur or worsen Total time spent on discharge = 35 minutes This includes examination of the patient, discharge planning, medication reconciliation, and communication with other providers. Discharge Instructions Discharge Instructions Date of Service Feb 21, 2017. Admission Reason for Admission: Ureteral Stone Discharge Discharge Diagnosis / Problem: Ureteral Stone, KAYDEN Discharge Goals Goal(s): Decrease discomfort, Improve function Activity Recommendations Activity Limitations: resume your previous activity Exercise/Sports Limitations: as tolerated . Instructions / Follow-Up Instructions / Follow-Up Follow up with on 02/27/17 at 10:05AM Follow up with your Urologist on 03/15/17 at 12:30pm Seek immediate medical attention if your symptoms reoccur or worsen Current Hospital Diet Patient's current hospital diet: Low Sodium Diet (2gm Na), AHA Diet (Heart Healthy) Discharge Diet Recommended Diet: AHA Diet (Heart Healthy) Pending Studies Studies pending at discharge: no Medical Emergencies . Who to Call and When: Medical Emergencies: If at any time you feel your situation is an emergency, please call 911 immediately. . Non-Emergent Contact Non-Emergency issues call your: Primary Care Provider, Urologist Call Non-Emergent contact if: you have a fever, your pain is not controlled, your pain is worsening, your pain is unusual for you, your pain is concerning you, you have any medication questions Seek immediate medical attention if your symptoms reoccur or worsen . . "Provider Documentation" section prepared by Shahid Shelton. . VTE Core Measure Inpt VTE Proph given/why not?: SCD's <Electronically signed by Shahid Shelton MD> Signed: 02/21/17 1107 Signed: The status of this report is Signed * If report status is Draft, the document has not been finalized by the responsible provider.
--- NOTE | 2017-02-21 11:24 | NUR ---
Reviewed chart. Pt is for discharge to home today. No Case Management needs identified. pt has family support at home. Please reconsult Case Management if further needs arise.
[2017-02-21] MEDS: TRAMADOL HCL 50 MG TAB PO PRN (13:09)
[2017-02-21] MEDS: [UNRECOGNIZED DRUG - REMARK] SCH (14:04)
[2017-02-21] MEDS: FENTANYL 12 MCG/HR TDSY TD SCH (14:06)
[2017-06-13] MEDS ORDERED: OXYC-737 PO (17:37)
== END 2017-02-21 14:34 | disposition home or self-care (01) | DRG 694 ==
LOC: EDBD 21:26 → C.EDA 21:27 → C.MSN 23:17 → EDBEDREQSVC 23:26 → CANRESERV 23:26 → ENRESERV 23:49
PROVIDERS: ADMIT Internal Medicine; ATTEND Internal Medicine
DX: N13.2 Hydronephrosis with renal and ureteral calculous obstruction (principal); R65.10 Systemic inflammatory response syndrome (SIRS) of non-infectious origin without acute organ dysfunction; N17.9 Acute kidney failure, unspecified; I25.10 Atherosclerotic heart disease of native coronary artery without angina pectoris; I35.0 Nonrheumatic aortic (valve) stenosis; M54.9 Dorsalgia, unspecified; G89.29 Other chronic pain; N18.3 Chronic kidney disease, stage 3 (moderate); R19.7 Diarrhea, unspecified; Z79.02 Long term (current) use of antithrombotics/antiplatelets; Z79.82 Long term (current) use of aspirin; Z79.899 Other long term (current) drug therapy; Z95.5 Presence of coronary angioplasty implant and graft

== ENCOUNTER 2017-05-24 18:46 | Emergency (ER) | payer OTHER ==
[~2017-05-24] VITALS: Ht 157.5 cm; Wt 108.6 kg
[~2017-05-24 18:46] MED LIST changes: +CLOB-77 TOP; +CYAN10005 PO; +DRGTP12 TOP; -FENT75DI2 TD; +FNTTP50 TD; +GABA-112 PO; -NYST80OI TOP
[2017-05-24 19:12] VITALS: BP 123/58; PULSE 68; TEMP 36.9; O2SAT 94; Ht 157.5 cm; Wt 108.6 kg
[2017-05-24] MEDS ORDERED: TRAMADOL HCL 50 MG TAB PO STA (19:33)
--- NOTE | 2017-05-24 19:53 | DIAGNOSTIC IMAGING REPORT ---
R SHOULDER MIN 2 VIEWS ROUTINE CLINICAL HISTORY: Right shoulder pain status post trauma COMPARISON: 12/05/2016 DISCUSSION: No acute fractures or dislocations are visualized. There are mild degenerative changes within the AC joint and humeral acromial joint. IMPRESSION: No acute fractures or dislocations identified. Electronically signed by: Bo Leon M.D. 05/24/2017 7:52 PM Dictated Date/Time: 05/24/2017 7:51 PM
--- NOTE | 2017-05-24 19:54 | DIAGNOSTIC IMAGING REPORT ---
R WRIST W/NAVICULAR MIN 3 VIEWS CLINICAL HISTORY: Right wrist pain status post trauma COMPARISON: None DISCUSSION: There is subtle chondrocalcinosis. There is a chronic radial styloid deformity. There are osteoarthritic changes present. No acute fractures or dislocations are visualized. IMPRESSION: No acute fractures or dislocations identified. Electronically signed by: Bo Leon M.D. 05/24/2017 7:53 PM Dictated Date/Time: 05/24/2017 7:52 PM
[2017-05-24] MEDS ORDERED: HYDR-5688 PO (20:21)
--- NOTE | 2017-05-24 20:23 | EMERGENCY ROOM VISIT NOTE ---
History First contact with patient: 19:17 Chief Complaint: WRIST PAIN Stated Complaint: RT WRIST PAIN History of Present Illness The patient is a 82 year old female who presents to the Emergency Room with complaints of right wrist pain after having a mechanical fall earlier this afternoon. The patient tripped and tried to catch herself with her right hand. She slid down the wall and caught herself with her right hand on the floor. She denies hitting her head. She is having pain in the right wrist and also the right shoulder. She denies any other injuries. She has tried Excedrin with minimal relief of the pain. The patient has a history of a rotator cuff injury in the right shoulder from November. Review of Systems 6 system review negative. Please see pertinent positives in the history of present illness section. Past Medical/Surgical History Medical Problems: (1) Ureteral stone Surgical Problems: (1) History of cholecystectomy Family History Hypertension Social History Smoking Status: Never Smoker Alcohol Use: none Drug Use: none Marital Status: Housing Status: lives alone Occupation Status: retired Current/Historical Medications Scheduled Aspirin (Aspirin Ec), 81 MG PO QAM Bupropion (Wellbutrin Sr), 100 MG PO QAM Cholecalciferol (Vitamin D), 2,000 UNIT PO DAILY Clobetasol Propionate (Temovate), 1 APPLN TOP BID Clopidogrel (Plavix), 75 MG PO QAM Cyanocobalamin (Vitamin B-12), 1,000 MCG PO DAILY Docusate Sodium (Colace), 100 MG PO BID Fentanyl (Duragesic), 50 MCG TD CQ72HR Fentanyl (Fentanyl), 12.5 MCG TOP Q3D Fluoxetine (Prozac), 40 MG PO QAM Fluoxetine (Prozac), 20 MG PO QPM Furosemide (Lasix), 20 MG PO QAM Gabapentin (Neurontin), 100 MG PO TID Isosorbide Mononitrate Ext Rel (Imdur Ext Rel), 60 MG PO QAM Levothyroxine Sodium (Synthroid), 125 MCG PO QAM Lisinopril (Zestril), 10 MG PO QAM Metoprolol Succ (Toprol Xl) (Toprol-Xl), 25 MG PO QAM Nitroglycerin (Nitrostat), 0.4 MG UT PRN Omeprazole (Prilosec), 20 MG PO QAM Potassium Chloride (Micro-K Ext Rel), 10 MEQ PO QAM Simvastatin (Zocor), 40 MG PO HS Scheduled PRN Hydrocodone/Acetaminophen 5MG/325MG (Clyde 5MG/325MG), 1-2 TABLET PO Q4H PRN for Pain Lorazepam (Ativan), 0.5 MG PO BID PRN for ANXIETY Tramadol (Ultram), 50 MG PO Q6HR PRN for Pain Physical Exam Vital Signs Date Time Temp Pulse Resp B/P (MAP) Pulse Ox O2 Delivery O2 Flow Rate FiO2 05/24/17 19:12 36.9 68 18 123/58 94 Room Air Physical Exam GENERAL: 82-year-old female, in mild discomfort,, in no acute distress, nondiaphoretic, well-developed well-nourished. SKIN: The skin was intact. HEAD: Normocephalic atraumatic. MUSCULOSKELETAL: RUE: Tenderness to palpation over the distal aspect of the right radius. Pain with flexion and extension of the wrist. Radial pulse +2. No tenderness over the snuffbox. Capillary refill is less than 2 seconds. Difficulty with flexion of the right shoulder. Also pain and difficulty noted with abduction of the right shoulder. Tenderness to palpation over the anterior aspect of the shoulder. Sensation over the deltoid is intact. Full flexion and extension of the right elbow without any tenderness over the olecranon process. NEURO: Patient was alert and oriented to person place and time. Normal sensation to touch. No focal neurological deficits. Medical Decision & Procedures ER Provider Diagnostic Interpretation: Wrist x-ray IMPRESSION: No acute fractures or dislocations identified. Electronically signed by: Bo Leon M.D. 05/24/2017 7:53 PM Dictated Date/Time: 05/24/2017 7:52 PM Shoulder x-ray IMPRESSION: No acute fractures or dislocations identified. Electronically signed by: Bo Leon M.D. 05/24/2017 7:52 PM Dictated Date/Time: 05/24/2017 7:51 PM The status of this report is Signed. Draft = Not yet reviewed or approved by Radiologist. Signed = Reviewed and approved by Radiologist. Medications Administered Medications (Trade) Dose Ordered Sig/Yoli Route Start Time Stop Time Status Last Admin Dose Admin Tramadol HCl (Ultram Tab) 50 mg NOW STAT PO 05/24/17 19:33 05/24/17 19:34 DC 05/24/17 19:48 50 MG Acetaminophen/ Hydrocodone Bitart (Clyde 5/325mg Home Pack) 1 homepack UD ONCE PO 05/24/17 20:30 05/24/17 20:31 DC 05/24/17 20:30 1 HOMEPACK ED Course The patient was seen and examined She was given tramadol for pain Imaging was performed and reviewed The patient was also seen and examined by my supervising physician who is in agreement with my plan Upon reassessment, the patient was still complaining of pain. We thoroughly reviewed her x-rays. She voiced understanding. She was comfortable being discharged home. She was given a wrist lacer Discharge instructions were reviewed, and she was discharged in good condition Medical Decision Differential diagnosis: Fracture, sprain, dislocation, contusion This patient is an 82-year-old female presents to the emergency department complaining of right shoulder and right wrist pain. On exam, the patient had difficulty with any range of motion of the right shoulder. Her physical exam is consistent with a likely rotator cuff injury. This is however not new. X- rays of the right wrist and shoulder do not show any fractures. She likely has a right wrist sprain in addition to exacerbating her injury to her shoulder. The patient was given a wrist lacer. She was encouraged to continue to use her cane and even her walker if needed to get around. She was comfortable with this plan. She was given a short course of narcotics for pain control. She will follow-up with her primary care physician early next week to be rechecked. She agrees to return with any new or worsening symptoms This chart was completed in part utilizing [employer] Speech Voice Recognition software. Attempts were made to minimize the grammatical errors, random word insertions, pronoun errors and incomplete sentences. Any formal questions or concerns about the content, text or information contained within the body of this dictation should be directly addressed to the provider for clarification. Impression Primary Impression: Wrist pain, right Departure Information Dispostion Home / Self-Care Condition GOOD Prescriptions Hydrocodone/Acetaminophen 5MG/325MG (Clyde 5MG/325MG) Tab 1-2 TABLET PO Q4H Y for Pain, #15 TAB For Initial Treatment Prov: Radha Roland PA-C 05/24/17 Referrals Rozick, Surya S.,M.D. (PCP) Patient Instructions My [facility] Additional Instructions You have been evaluated in the emergency department for an injury to the right wrist. X-rays did not show any signs of fractures. This is likely a sprain. Please use the wrist lacer for support. Please apply ice for 20 minute intervals at a time for the next 48 hours Please continue to use your cane and if needed your walker to get around. Please continue Tylenol 500 mg every 4 hours as needed for pain. If the pain is severe, please take Clyde 1-2 tabs every 4 hours as needed. Please do not take this in addition to the Tylenol as they both contain acetaminophen. It is okay to continue tramadol as prescribed. This may be taken with the Clyde. Please follow-up with your primary care physician next week Please do not hesitate to return to the emergency department with any new, worsening or concerning symptoms It was a pleasure participating in your care today.
--- NOTE | 2017-05-24 20:26 | EMERGENCY ROOM VISIT NOTE ---
ED Visit Note First contact with patient: 19:17 I have seen and examined this patient with Radha Roland and generally agree with the treatment plan as discussed. Problem List Surgical Problems: (1) History of cholecystectomy Status: Resolved Current/Historical Medications Scheduled Aspirin (Aspirin Ec), 81 MG PO QAM Bupropion (Wellbutrin Sr), 100 MG PO QAM Cholecalciferol (Vitamin D), 2,000 UNIT PO DAILY Clobetasol Propionate (Temovate), 1 APPLN TOP BID Clopidogrel (Plavix), 75 MG PO QAM Cyanocobalamin (Vitamin B-12), 1,000 MCG PO DAILY Docusate Sodium (Colace), 100 MG PO BID Fentanyl (Duragesic), 50 MCG TD CQ72HR Fentanyl (Fentanyl), 12.5 MCG TOP Q3D Fluoxetine (Prozac), 40 MG PO QAM Fluoxetine (Prozac), 20 MG PO QPM Furosemide (Lasix), 20 MG PO QAM Gabapentin (Neurontin), 100 MG PO TID Isosorbide Mononitrate Ext Rel (Imdur Ext Rel), 60 MG PO QAM Levothyroxine Sodium (Synthroid), 125 MCG PO QAM Lisinopril (Zestril), 10 MG PO QAM Metoprolol Succ (Toprol Xl) (Toprol-Xl), 25 MG PO QAM Nitroglycerin (Nitrostat), 0.4 MG UT PRN Omeprazole (Prilosec), 20 MG PO QAM Potassium Chloride (Micro-K Ext Rel), 10 MEQ PO QAM Simvastatin (Zocor), 40 MG PO HS Scheduled PRN Hydrocodone/Acetaminophen 5MG/325MG ([place] 5MG/325MG), 1-2 TABLET PO Q4H PRN for Pain Lorazepam (Ativan), 0.5 MG PO BID PRN for ANXIETY Tramadol (Ultram), 50 MG PO Q6HR PRN for Pain Allergies Coded Allergies: NSAIDs (Verified Allergy, Unknown, IBUPROFEN/SULINDAC, 02/17/17) Promethazine (Verified Adverse Reaction, Unknown, "MADE ME WANT TO JUMP OUT OF MY SKIN", 02/17/17) Vital Signs Date Time Temp Pulse Resp B/P (MAP) Pulse Ox O2 Delivery O2 Flow Rate FiO2 05/24/17 19:12 36.9 68 18 123/58 94 Room Air Medications Administered Medications (Trade) Dose Ordered Sig/Yoli Route Start Time Stop Time Status Last Admin Dose Admin Tramadol HCl (Ultram Tab) 50 mg NOW STAT PO 05/24/17 19:33 05/24/17 19:34 DC 05/24/17 19:48 50 MG Departure Information Impression Primary Impression: Wrist pain, right Dispostion Home / Self-Care Condition GOOD Prescriptions Hydrocodone/Acetaminophen 5MG/325MG ([place] 5MG/325MG) Tab 1-2 TABLET PO Q4H Y for Pain, #15 TAB For Initial Treatment Prov: Radha Roland PA-C 05/24/17 Referrals Surya Fowler M.D. (PCP) Forms WORK / SCHOOL INSTRUCTIONS, HOME CARE DOCUMENTATION FORM, IMPORTANT VISIT INFORMATION Patient Instructions My [facility] Additional Instructions You have been evaluated in the emergency department for an injury to the right wrist. X-rays did not show any signs of fractures. This is likely a sprain. Please use the wrist lacer for support. Please apply ice for 20 minute intervals at a time for the next 48 hours Please continue to use your cane and if needed your walker to get around. Please continue Tylenol 500 mg every 4 hours as needed for pain. If the pain is severe, please take [place] 1-2 tabs every 4 hours as needed. Please do not take this in addition to the Tylenol as they both contain acetaminophen. It is okay to continue tramadol as prescribed. This may be taken with the [place]. Please follow-up with your primary care physician next week Please do not hesitate to return to the emergency department with any new, worsening or concerning symptoms It was a pleasure participating in your care today.
[2017-05-24] MEDS ORDERED: NORCO 5/325MG HOME PACK PO ONE (20:30)
== END 2017-05-24 20:53 | disposition home or self-care (01) ==
LOC: C.EDB 18:47 → C.EDD 20:53
DX: M25.531 Pain in right wrist (principal); W19.XXXA Unspecified fall, initial encounter; Z79.82 Long term (current) use of aspirin

== ENCOUNTER 2017-06-13 14:18 | Emergency (ER) | payer OTHER ==
[~2017-06-13] VITALS: Ht 162.6 cm; Wt 107.0 kg
[~2017-06-13 14:18] MED LIST changes: +HYDR-5688 PO
[2017-06-13 14:25] VITALS: TEMP 36.6; Ht 162.6 cm; Wt 107.0 kg
[2017-06-13] MEDS ORDERED: ONDANSETRON INJ 2 MG/ML 2 ML VIAL IV STA (15:39)
[2017-06-13] MEDS ORDERED: MoRPHine SULFATE 4 MG/ML 1 ML CARP\\VIAL IV STA (15:39)
[2017-06-13 16:31] LABS: BASO % 0.2 %; BASO ABS # 0.02 K/uL (0-0.2); EOS % 2.1 %; EOS ABS # 0.19 K/uL (0-0.5); HEMATOCRIT 35.2 % (37-47); HEMOGLOBIN 11.4 g/dL (12.0-16.0); IG# 0.02 K/uL (0.00-0.02); LYMPH % 23.7 %; LYMPH ABS # 2.11 K/uL (1.2-3.4); MEAN CELL VOLUME 97.2 fL (80-100); MEAN CORPUSCULAR HEMOGLOBIN 31.5 pg (25-34); MEAN CORPUSCULAR HGB CONC 32.4 g/dl (32-36); MEAN PLATELET VOLUME 9.5 fL (7.4-10.4); MONO % 8.9 %; MONO ABS # 0.79 K/uL (0.11-0.59); NEUT % 64.9 %; NEUT ABS # 5.77 K/uL (1.4-6.5); PLATELET COUNT 229 K/uL (130-400); RED CELL DISTRIBUTION WIDTH CV 13.5 % (11.5-14.5); RED CELL DISTRIBUTION WIDTH SD 47.8 fL (36.4-46.3)
[2017-06-13] MEDS ORDERED: MoRPHine SULFATE 4 MG/ML 1 ML CARP\\VIAL IM STA (16:51)
--- NOTE | 2017-06-13 16:51 | DIAGNOSTIC IMAGING REPORT ---
RIGHT FOURTH AND FIFTH FINGER RADIOGRAPHS CLINICAL HISTORY: Fall. Pain and bruising. COMPARISON: Right hand radiographs May 18, 2011. FINDINGS: Alignment of the right fourth and fifth fingers is anatomic. No acute fracture is present. 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 IMPRESSION: No acute fracture or dislocation within the right fourth or fifth fingers. Electronically signed by: Sarthak Jaeger M.D. 06/13/2017 4:49 PM Dictated Date/Time: 06/13/2017 4:47 PM
--- NOTE | 2017-06-13 16:51 | DIAGNOSTIC IMAGING REPORT ---
R RIBS UNILATERAL WITH PA CHEST CLINICAL HISTORY: r rib pain trauma. Pain. COMPARISON STUDY: None FINDINGS: Negative right ribs. No acute process of the chest. Degenerative change of the thoracolumbar spine. IMPRESSION: No acute process The above report was generated using voice recognition software. It may contain grammatical, syntax or spelling errors. Electronically signed by: Surya Larsen M.D. 06/13/2017 4:50 PM Dictated Date/Time: 06/13/2017 4:49 PM
[2017-06-13 16:54] LABS: ALBUMIN 3.5 gm/dl (3.4-5.0); ALT/SGPT 14 U/L (12-78); AST/SGOT 10 U/L (15-37); BLOOD UREA NITROGEN 21 mg/dl (7-18); CALCIUM 8.9 mg/dl (8.5-10.1); CARBON DIOXIDE 25 mmol/L (21-32); CREATININE 1.06 mg/dl (0.60-1.20); GLUCOSE 126 mg/dl (70-99); LIPASE 69 U/L (73-393); POTASSIUM 3.9 mmol/L (3.5-5.1); SODIUM 140 mmol/L (136-145)
[2017-06-13 16:56] LABS: ALKALINE PHOSPHATASE 98 U/L (45-117); TOTAL PROTEIN 7.1 gm/dl (6.4-8.2)
[2017-06-13] MEDS ORDERED: OXYC1TAB3 PO (17:37)
[2017-06-13 18:08] VITALS: BP 126/84; PULSE 71; O2SAT 94
--- NOTE | 2017-06-13 19:58 | EMERGENCY ROOM VISIT NOTE ---
History Report prepared by Radha: Derek Caro Under the Supervision of: Dr. Jake Mooney D.O. First contact with patient: 15:22 Chief Complaint: FALL Stated Complaint: FALL,BACK/RIB PAIN History of Present Illness The patient is an 82 year old female who presents to the Emergency Room with complaints of pain in the right arm/wrist and right flank that began following a traumatic fall that occurred shortly prior to arrival. The patient states that she was walking into [employer] today when she tripped over a support leg of an outdoor display sign. She attempted to catch herself on one of the yellow poles with her right arm, but fell into the pole with her right side hitting against the pole. She denies hitting her head, and does not currently have any head or neck pain. Her pain in her right flank is worsened with deep inhalation. Pain does have a constant portion but is worsened with breathing. She describes her pain as 6 out of 10 at this time. No other complaints. Source of History: patient Onset: Shortly [employer] Position: arm (right), wrist (right), hand (right), abdomen (right flank) Quality: other (Pain from fall) Modifying Factors (Worsening): breathing (deep inhalation) Associated Symptoms: No LOC, No headache, No neck pain Review of Systems See HPI for pertinent positives & negatives. A total of 10 systems reviewed and were otherwise negative. Past Medical & Surgical Medical Problems: (1) Ureteral stone Surgical Problems: (1) History of cholecystectomy Family History Hypertension Social History Smoking Status: Never Smoker Alcohol Use: none Drug Use: none Marital Status: Housing Status: lives alone Occupation Status: retired Current/Historical Medications Scheduled Aspirin (Aspirin Ec), 81 MG PO QAM Bupropion (Wellbutrin Sr), 100 MG PO QAM Cholecalciferol (Vitamin D), 2,000 UNIT PO DAILY Clobetasol Propionate (Temovate), 1 APPLN TOP BID Clopidogrel (Plavix), 75 MG PO QAM Cyanocobalamin (Vitamin B-12), 1,000 MCG PO DAILY Docusate Sodium (Colace), 100 MG PO BID Fentanyl (Duragesic), 50 MCG TD [id number] Fluoxetine (Prozac), 40 MG PO QAM Fluoxetine (Prozac), 20 MG PO QPM Furosemide (Lasix), 20 MG PO QAM Gabapentin (Neurontin), 100 MG PO TID Isosorbide Mononitrate Ext Rel (Imdur Ext Rel), 60 MG PO QAM Levothyroxine Sodium (Synthroid), 125 MCG PO QAM Lisinopril (Zestril), 10 MG PO QAM Metoprolol Succ (Toprol Xl) (Toprol-Xl), 25 MG PO QAM Nitroglycerin (Nitrostat), 0.4 MG UT PRN Omeprazole (Prilosec), 20 MG PO QAM Potassium Chloride (Micro-K Ext Rel), 10 MEQ PO QAM Simvastatin (Zocor), 40 MG PO HS Scheduled PRN Lorazepam (Ativan), 0.5 MG PO BID PRN for ANXIETY Oxycodone Immediate Rel Tab (Roxicodone Ir), 5 MG PO Q6H PRN for Pain Tramadol (Ultram), 50 MG PO Q6HR PRN for Pain Allergies Coded Allergies: NSAIDs (Verified Allergy, Unknown, IBUPROFEN/SULINDAC, 06/13/17) Promethazine (Verified Adverse Reaction, Unknown, "MADE ME WANT TO JUMP OUT OF MY SKIN", 06/13/17) Physical Exam Vital Signs Date Time Temp Pulse Resp B/P (MAP) Pulse Ox O2 Delivery O2 Flow Rate FiO2 06/13/17 18:08 71 18 126/84 94 06/13/17 15:26 64 20 123/62 98 Room Air 06/13/17 14:25 36.6 73 20 108/56 95 Room Air Physical Exam GENERAL: alert, well appearing, well nourished, no distress, non-toxic HEAD: normal cephalic, atraumatic EYE EXAM: normal conjunctiva, PERRL and EOM's grossly intact OROPHARYNX: no exudate, no erythema, lips, buccal mucosa, and tongue normal and mucous membranes are moist EARS: TMs clear b/l NECK: supple, no nuchal rigidity, no adenopathy, non-tender CHEST: stable to compression anteriorly and posteriorly LUNGS: clear to auscultation. Normal chest wall mechanics HEART: Positive ejection murmurs, S1 normal and S2 normal ABDOMEN: abdomen soft, non-tender, normo-active bowel sounds, no masses, no rebound or guarding. PELVIS: stable to compression anteriorly and posteriorly BACK: Back is symmetrical on inspection and there is no deformity, There is bruising over the right 7-8th ribs in the right flank with minimal tenderness to palpation. UPPER EXTREMITIES: full active and passive range of motion of all joints without tenderness to palpation. There is bruising over the right 5th and 4th PIPs. LOWER EXTREMITIES: full active and passive range of motion of all joints without tenderness to palpation NEURO EXAM: Normal sensorium, cranial nerves II-XII grossly intact, normal speech, no gross weakness of arms, no gross weakness of legs. GCS: 15. Medical Decision & Procedures ER Provider Diagnostic Interpretation: Radiology results as stated below per my review and the radiologist's interpretation: RIGHT FOURTH AND FIFTH FINGER RADIOGRAPHS CLINICAL HISTORY: Fall. Pain and bruising. COMPARISON: Right hand radiographs May 18, 2011. FINDINGS: Alignment of the right fourth and fifth fingers is anatomic. No acute fracture is present. 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 IMPRESSION: No acute fracture or dislocation within the right fourth or fifth fingers. Electronically signed by: Sarthak Jaeger M.D. 06/13/2017 4:49 PM Dictated Date/Time: 06/13/2017 4:47 PM R RIBS UNILATERAL WITH PA CHEST CLINICAL HISTORY: r rib pain trauma. Pain. COMPARISON STUDY: None FINDINGS: Negative right ribs. No acute process of the chest. Degenerative change of the thoracolumbar spine. IMPRESSION: No acute process The above report was generated using voice recognition software. It may contain grammatical, syntax or spelling errors. Electronically signed by: Surya Larsen M.D. 06/13/2017 4:50 PM Dictated Date/Time: 06/13/2017 4:49 PM Laboratory Results 06/13/17 16:09 Red Blood Count 3.62, Mean Corpuscular Volume 97.2, Mean Corpuscular Hemoglobin 31.5, Mean Corpuscular Hemoglobin Concent 32.4, Mean Platelet Volume 9.5, Neutrophils (%) (Auto) 64.9, Lymphocytes (%) (Auto) 23.7, Monocytes (%) (Auto) 8.9, Eosinophils (%) (Auto) 2.1, Basophils (%) (Auto) 0.2, Neutrophils # (Auto) 5.77, Lymphocytes # (Auto) 2.11, Monocytes # (Auto) 0.79, Eosinophils # (Auto) 0.19, Basophils # (Auto) 0.02 06/13/17 16:09 Test 06/13/17 16:09 White Blood Count 8.90 K/uL (4.8-10.8) Red Blood Count 3.62 M/uL (4.2-5.4) Hemoglobin 11.4 g/dL (12.0-16.0) Hematocrit 35.2 % (37-47) Mean Corpuscular Volume 97.2 fL (80-100) Mean Corpuscular Hemoglobin 31.5 pg (25-34) Mean Corpuscular Hemoglobin Concent 32.4 g/dl (32-36) Platelet Count 229 K/uL (130-400) Mean Platelet Volume 9.5 fL (7.4-10.4) Neutrophils (%) (Auto) 64.9 % Lymphocytes (%) (Auto) 23.7 % Monocytes (%) (Auto) 8.9 % Eosinophils (%) (Auto) 2.1 % Basophils (%) (Auto) 0.2 % Neutrophils # (Auto) 5.77 K/uL (1.4-6.5) Lymphocytes # (Auto) 2.11 K/uL (1.2-3.4) Monocytes # (Auto) 0.79 K/uL (0.11-0.59) Eosinophils # (Auto) 0.19 K/uL (0-0.5) Basophils # (Auto) 0.02 K/uL (0-0.2) RDW Standard Deviation 47.8 fL (36.4-46.3) RDW Coefficient of Variation 13.5 % (11.5-14.5) Immature Granulocyte % (Auto) 0.2 % Immature Granulocyte # (Auto) 0.02 K/uL (0.00-0.02) Anion Gap 6.0 mmol/L (3-11) Est Creatinine Clear Calc Drug Dose 49.7 ml/min Estimated GFR () 57.0 Estimated GFR (Non- 49.2 BUN/Creatinine Ratio 20.1 (10-20) Calcium Level 8.9 mg/dl (8.5-10.1) Total Bilirubin 0.4 mg/dl (0.2-1) Direct Bilirubin < 0.1 mg/dl (0-0.2) Aspartate Amino Transf (AST/SGOT) 10 U/L (15-37) Alanine Aminotransferase (ALT/SGPT) 14 U/L (12-78) Alkaline Phosphatase 98 U/L (45-117) Total Protein 7.1 gm/dl (6.4-8.2) Albumin 3.5 gm/dl (3.4-5.0) Lipase 69 U/L (73-393) Laboratory results per my review. Medications Administered Medications (Trade) Dose Ordered Sig/Yoli Route Start Time Stop Time Status Last Admin Dose Admin Morphine Sulfate (MoRPHine SULFATE INJ) 4 mg NOW STAT IV 06/13/17 15:39 06/13/17 15:42 DC 06/13/17 16:15 4 MG Ondansetron HCl (Zofran Inj) 4 mg NOW STAT IV 06/13/17 15:39 06/13/17 15:42 DC 06/13/17 16:15 4 MG ED Course ED COURSE: Vital signs were reviewed and showed normal vitals. The patients medical record was reviewed The above diagnostic studies were performed and reviewed. ED treatments and interventions as stated above. 1529: The patient was evaluated in room C3. A complete history and physical examination was performed. 1539: Ordered Zofran 4 mg IV, Morphine Sulfate 4 mg IV. 1739: Upon reevaluation, the patient is resting in bed.I discussed my findings with the patient and she understands and agrees with the treatment plan. Based on the patients age, coexisting illnesses, exam and lab findings the decision to treat as an outpatient was made. The patient remained stable while under my care. The patient appeared well at the time of discharge. 1742: I reviewed the patients prescription list at this time. There are multiple narcotic prescriptions present. Medical Decision Differential diagnoses include major intracranial, cervical, spinal, thoracic, abdominal, pelvic and neurologic injury. Fracture, contusion, sprain, strain, laceration, abrasions included as well. Patient is an 82-year-old female who presents to ER for mechanical fall. She is complaining of right fourth and fifth finger pain which she has mild bruising at this location along with right rib pain. On exam she has bruising of the right lateral back tracking through her right ribs. CBC along with BMP, LFTs, bilirubin lipase is unremarkable. X-rays show no obvious rib fractures. Vitals are stable. She has multiple narcotic prescriptions and consequently only gave her 10 OxyIR's for the likely small rib fracture that we are missing on x-rays. There is no pleural effusion or pneumothorax. Patient was updated at bedside discharge follow-up as an outpatient. She did not hit her head. She had no head or neck pain. Discussed with Pt concerning signs and symptoms to watch out for. Pt was instructed to follow up with their PCP and discussed with the patient their option to return to the ED at anytime for persistent or worsening symptoms. The appropriate anticipatory guidance and out-patient management, including indications for return to the emergency department, were explained at length to the patient and understood. Medication Reconcilliation Current Medication List: was personally reviewed by me Blood Pressure Screening Patient's blood pressure: Normal blood pressure Impression Primary Impression: Contusion of rib Additional Impression: Fall Scribe Attestation The scribe's documentation has been prepared under my direction and personally reviewed by me in its entirety. I confirm that the note above accurately reflects all work, treatment, procedures, and medical decision making performed by me. Departure Information Dispostion Home / Self-Care Prescriptions Oxycodone Immediate Rel Tab (ROXICODONE IR) 5 Mg Tab 5 MG PO Q6H Y for Pain, #10 TAB Prov: Jake Mooney, DO 06/13/17 Referrals No Doctor, Assigned (PCP) Forms HOME CARE DOCUMENTATION FORM, IMPORTANT VISIT INFORMATION Patient Instructions My [facility] Additional Instructions Please follow up with your primary care doctor with in the next 24 hours. Any worsening of your symptoms, please return to the ED immediately. This includes any fevers greater than 100.4, worsening pain, chest pain, shortness breath, persistent nausea, vomiting, unable to eat or drink, or any other concerning signs or symptoms from your standpoint. You were given medications during this visit that will inhibit your ability to drive, operate machinery and work. Please do NOT drive, operate machinery or work for the next 12hrs. You were also given a prescription for a narcotic. While taking this medication you should also not drive, operate machinery and or work. Please use your incentive spirometer as prescribed. Do not take OxyIR in combination with Hycodan, hydrocodone, Percocet or any other narcotics. Problem Qualifiers Primary Impression: Contusion of rib Encounter type: initial encounter Laterality: right Qualified Codes: S20.211A - Contusion of right front wall of thorax, initial encounter Additional Impression: Fall Encounter type: initial encounter Qualified Codes: W19.XXXA - Unspecified fall, initial encounter
== END 2017-06-13 18:09 | disposition home or self-care (01) ==
LOC: C.EDB 14:19 → C.EDC 18:09
DX: S20.211A Contusion of right front wall of thorax, initial encounter (principal); W18.09XA Striking against other object with subsequent fall, initial encounter; Y93.01 Activity, walking, marching and hiking; Y99.8 Other external cause status; Y92.29 Other specified public building as the place of occurrence of the external cause; Z87.442 Personal history of urinary calculi; Z90.49 Acquired absence of other specified parts of digestive tract; Z88.6 Allergy status to analgesic agent; Z88.8 Allergy status to other drugs, medicaments and biological substances; Z82.49 Family history of ischemic heart disease and other diseases of the circulatory system; Z79.02 Long term (current) use of antithrombotics/antiplatelets; Z79.82 Long term (current) use of aspirin

== ENCOUNTER 2022-08-12 01:59 | Inpatient (IN) ==
[2022-08-12] MEDS ORDERED: ONDANSETRON INJ 2 MG/ML 2 ML VIAL IV STA (02:39)
[2022-08-12] MEDS ORDERED: SODIUM CHLORIDE 0.9% 500 ML IV STA (02:39)
[2022-08-12] MEDS ORDERED: fentaNYL citrate PF 100 MCG/2 ML VIAL IV STA (03:10)
[2022-08-12 03:21] LABS: Alanine Aminotransferase 9 U/L (7-52); Albumin Globulin Ratio 1.3 (0.9-2); Albumin Level 3.8 gm/dl (3.4-5.0); Alkaline Phosphatase 68 U/L (34-104); Anion Gap 7 (3-11); Aspartate Aminotransferase 10 U/L (13-39); BUN Creatinine Ratio 18.9 (10-20); Bilirubin,Total 0.4 mg/dl (0.2-1.0); Blood Urea Nitrogen 18 mg/dl (6-23); Calcium 9.1 mg/dl (8.6-10.3); Carbon Dioxide 28 mmol/L (21-32); Chloride 105 mmol/L (98-107); Est GFR (African American) 62.9 ml/min; Est GFR (Non-African American) 54.2 ml/min; Globulin 2.9 gm/dl (2.5-4.0); Glucose 137 mg/dl (70-99(Fasting)); Lipase 31 U/L (11-82); Potassium 3.8 mmol/L (3.5-5.1); Sodium 140 mmol/L (136-145); Total Protein 6.7 gm/dl (6.0-8.3)
[2022-08-12 03:22] LABS: Basophils # (auto) 0.03 K/uL (0-0.2); Basophils % (auto) 0.2 %; Eosinophils # (auto) 0.12 K/uL (0-0.50); Eosinophils % (auto) 0.9 %; Hematocrit (blood only) 38.2 % (37.0-47.0); Hemoglobin 12.5 g/dl (12.0-16.0); Immature Granulocytes # (auto) 0.07 K/uL (0.01-0.20); Immature Granulocytes % (auto) 0.5 %; Lymphocytes # (auto) 1.43 K/uL (1.2-3.4); Lymphocytes % (auto) 11.1 %; Mean Corpuscular Hemoglobin 31.8 pg (25.0-34.0); Mean Corpuscular Hgb Conc 32.7 g/dL (32.0-36.0); Mean Corpuscular Volume 97.2 fL (80.0-100.0); Mean Platelet Volume 10.2 fL (9.4-12.4); Monocytes # (auto) 0.76 K/uL (0.11-0.59); Monocytes % (auto) 5.9 %; Neutrophils # (auto) 10.48 K/uL (1.40-6.50); Neutrophils % (auto) 81.4 %; Platelet Count 200 K/uL (130-400); RDW Coefficient of Variation 12.9 % (11.5-14.5); RDW Standard Deviation 46.3 fL (36.4-46.3); Red Blood Count 3.93 M/uL (4.20-5.40); White Blood Count 12.89 K/ul (4.8-10.8)
[2022-08-12] MEDS ORDERED: OPTIRAY 320 100ml IV ONE (03:36)
--- NOTE | 2022-08-12 04:29 | Emergency Department Note ---
Impression & Plan SBO (small bowel obstruction), Abdominal aortic aneurysm Admit to the [facility] ED Provider Note NAME: MICHEL RIVERA AGE: 87 SEX: F ARRIVES VIA: Ambulance INFORMANT: Patient ED PROVIDER(S): Juliana Laboy DO CHIEF COMPLAINT: Abdominal pain and vomiting PLAN: Disposition: Admit to the [facility] Condition: Fair MEDICAL DECISION MAKING: This is an 87-year-old female patient who presents to the emergency department with abdominal pain and vomiting after dinner. Symptoms started fairly suddenly. Describes some more episodes previously. Laboratory studies were fairly unremarkable with only mild leukocytosis of 12.8 and mild hyperglycemia at 137. H&H were stable. Electrolytes were unremarkable. Patient had no further vomiting while here in the emergency department. CT scan showed evidence of a small bowel obstruction and an incidental note of an abdominal aortic aneurysm of moderate size. Laboratory studies reviewed very slight leukocytosis with a white blood cell count of 12.8. There is slight hyperglycemia with glucose level of 137. Otherwise labs were unremarkable. I discussed the case with the [facility] Hospitalist and they will evaluate for further management. Triage Nursing notes reviewed and agree with them. Additional history obtained from patient's family member who is at the bedside. External medical records were reviewed including a remote history of a previous small bowel obstruction. Vital Signs: reviewed and remarkable for hypertension Differential diagnosis: Colitis, pancreatitis, small bowel obstruction, abdominal wall hernia ER treatment provided: laboratory monitor IV normal saline IV Zofran IV fentanyl Diagnostics interpreted by me: Cardiac Monitoring: Normal sinus rhythm at a rate of 69. Laboratory studies: See below Imaging studies: As per stat read CT scan of the abdomen/pelvis: See report HPI: 87/F arrives for evaluation of abdominal pain and vomiting. Patient states that she was feeling well throughout the day today. She ate some cream of potato soup with ham and peas. She then had done it. Shortly after eating dinner, she became nauseated and started vomiting. She then developed some right-sided abdominal pain. PAST MEDICAL HISTORY:See Below PAST SURGICAL HISTORY:See Below FAMILY HISTORY:See Below SOCIAL HISTORY:See Below HOME MEDICATIONS:See list ALLERGIES:None VITALS:See Below PHYSICAL EXAMINATION: HEENT: Head - normocephalic and atraumatic Pupils are equal, round, and reactive to light. Extraocular eye muscles are intact, and sclera are anicteric. Nose - moist nasal mucosa without discharge. Mouth - moist buccal mucosa. Oropharynx is nonerythematous and there is no tonsillar exudate or edema noted. Neck: Supple; no cervical lymphadenopathy or nuchal rigidity. Heart: Regular rate and rhythm. There is a normal S1 and S2 with no murmurs, clicks, or gallops appreciated. Lungs: Clear to auscultation bilaterally with no wheezes, rales, or rhonchi. Abdomen: Soft, moderately distended with pain to palpation in the right upper quadrant of the abdomen. There are hypoactive bowel sounds. There are no palpable pulsatile masses or hepatosplenomegaly. There is no guarding, rigidity, or rebound noted. Extremities: No evidence of cyanosis, clubbing, or edema. There are easily palpable peripheral pulses. Skin: warm and dry with good turgor and no rashes. ED COURSE: Patient was initially evaluated by the medical student. 205 patient was evaluated in room B7. A complete history and physical was performed. An IV lock was initiated and labs were drawn as above. Previous electronic medical records were reviewed. Patient was bolused with IV normal saline solution. She was given a dose of IV Zofran. She went for CT scan of the abdomen/pelvis. Upon returning, she complained of increasing abdominal pain and was given a dose of IV fentanyl. She was then placed on a normal saline drip. I reviewed the results of the CT scan with the patient and her family. I discussed the case with the [facility] Hospitalist. Juliana Laboy DO Past Med/Surg History Medical History Hypertension Ureteral stone Surgical History History of cholecystectomy Social History Smoking Status: Former smoker Tobacco Type: Cigarettes Feels Safe at Home: Yes Allergies Allergies Allergy/AdvReac Type Severity Reaction Status Date / Time NSAIDS (Non-Steroidal Allergy Unknown IBUPROFEN/S Verified 09/24/18 22:03 Anti-Inflamma ULINDAC promethazine AdvReac Unknown "MADE ME Verified 09/24/18 22:03 WANT TO JUMP OUT OF MY SKIN" Home Meds Home Medications Medication Instructions Recorded Confirmed cholecalciferol (vitamin D3) 25 2,000 unit PO DAILY 09/24/18 08/12/22 mcg (1,000 unit) capsule (Vitamin D3) clopidogrel 75 mg tablet (Plavix) 75 mg PO DAILY 09/24/18 08/12/22 cyanocobalamin (vitamin B-12) 1,000 mcg PO Q OTHER DAY 09/24/18 08/12/22 1,000 mcg tablet (Vitamin B-12) fluoxetine 40 mg capsule (Prozac) 40 mg PO QAM 09/24/18 08/12/22 furosemide 20 mg tablet (Lasix) 20 mg PO UD 09/24/18 08/12/22 gabapentin 300 mg capsule 300 mg PO TID 09/24/18 08/12/22 (Neurontin) isosorbide mononitrate 60 mg 60 mg PO QAM 09/24/18 08/12/22 tablet,extended release 24 hr metoprolol succinate 25 mg 12.5 mg PO DAILY 09/24/18 08/12/22 tablet,extended release 24 hr (Toprol XL) nitroglycerin 0.4 mg sublingual 0.4 mg sublingual UD PRN Chest Pain 09/24/18 08/12/22 tablet (Nitrostat) omeprazole 20 mg capsule,delayed 20 mg PO DAILYBB 09/24/18 08/12/22 release potassium chloride 10 mEq 10 meq PO DAILY 09/24/18 08/12/22 tablet,extended release (Klor-Con) simvastatin 40 mg tablet (Zocor) 40 mg PO HS 09/24/18 08/12/22 aspirin 81 mg tablet,delayed 81 mg PO DAILY 08/12/22 08/12/22 release bupropion HCl 150 mg tablet,12 hr 150 mg PO BID 08/12/22 08/12/22 sustained-release diclofenac sodium 1 % topical gel 2 g topical QID PRN each hand 08/12/22 08/12/22 arthritis pain fluoxetine 20 mg capsule 20 mg PO .EVERY AFTERNOON 08/12/22 08/12/22 hydrocodone 10 mg-acetaminophen 1 tab PO Q6H PRN Pain 08/12/22 08/12/22 325 mg tablet ketoconazole 2 % shampoo 1 ea topical .EVERY 3 DAYS 08/12/22 08/12/22 levothyroxine 125 mcg tablet 125 mcg PO DAILYBB 08/12/22 08/12/22 lisinopril 5 mg tablet 2.5 mg PO QAM 08/12/22 08/12/22 triamcinolone acetonide 0.1 % 1 applic topical BID 08/12/22 08/12/22 lotion Results & Data (ED) Vital Signs Vital Signs - 24 hr 08/12/22 02:05 08/12/22 02:35 08/12/22 02:41 Temperature 36.5 C Temperature Source Oral Pulse Rate 67 67 Pulse Rate [Finger] Respiratory Rate 22 Blood Pressure 165/104 H Blood Pressure [Right Arm] Blood Pressure Mean 124 Blood Pressure Mean [Right Arm] Pulse Oximetry 95 93 Oxygen Delivery Method Room Air Room Air Oxygen Flow Rate Sepsis Recent Fever Within 48 Hours No Sepsis New/Unexplained Change in Mental Status No Sepsis Action Taken by Nursing No Action Required 08/12/22 05:24 08/12/22 06:00 Temperature Temperature Source Pulse Rate Pulse Rate [Finger] 69 Respiratory Rate 18 Blood Pressure Blood Pressure [Right Arm] 140/91 149/114 H Blood Pressure Mean Blood Pressure Mean [Right Arm] 107 125 Pulse Oximetry 95 Oxygen Delivery Method Nasal Cannula Oxygen Flow Rate 2 Sepsis Recent Fever Within 48 Hours Sepsis New/Unexplained Change in Mental Status Sepsis Action Taken by Nursing Laboratory Data 08/12/22 02:54 08/12/22 02:54 Lab Results 08/12/22 08/12/22 08/12/22 Range/Units 02:54 02:54 04:50 WBC 12.89 H (4.8-10.8) K/ul RBC 3.93 L (4.20-5.40) M/uL Hgb 12.5 (12.0-16.0) g/dl Hct 38.2 (37.0-47.0) % MCV 97.2 (80.0-100.0) fL MCH 31.8 (25.0-34.0) pg MCHC 32.7 (32.0-36.0) g/dL RDW Std Deviation 46.3 (36.4-46.3) fL RDW Coeff of Juan Ramon 12.9 (11.5-14.5) % Plt Count 200 (130-400) K/uL MPV 10.2 (9.4-12.4) fL Immature Gran % (Auto) 0.5 % Neut % (Auto) 81.4 % Lymph % (Auto) 11.1 % [place] % (Auto) 5.9 % Eos % (Auto) 0.9 % Baso % (Auto) 0.2 % Neut # (Auto) 10.48 H (1.40-6.50) K/uL Lymph # (Auto) 1.43 (1.2-3.4) K/uL [place] # (Auto) 0.76 H (0.11-0.59) K/uL Eos # (Auto) 0.12 (0-0.50) K/uL Baso # (Auto) 0.03 (0-0.2) K/uL Immature Gran # (Auto) 0.07 (0.01-0.20) K/uL Sodium 140 (136-145) mmol/L Potassium 3.8 (3.5-5.1) mmol/L Chloride 105 (98-107) mmol/L Carbon Dioxide 28 (21-32) mmol/L Anion Gap 7 (3-11) BUN 18 (6-23) mg/dl Creatinine 0.95 (0.6-1.2) mg/dl Est Cr Clr Drug Dosing Not Reportable Est GFR ( Amer) 62.9 ml/min Est GFR (Non-Af Amer) 54.2 ml/min BUN/Creatinine Ratio 18.9 (10-20) Glucose 137 H (70-99(Fasting)) mg/dl Calcium 9.1 (8.6-10.3) mg/dl Total Bilirubin 0.4 (0.2-1.0) mg/dl AST 10 L (13-39) U/L ALT 9 (7-52) U/L Alkaline Phosphatase 68 (34-104) U/L Total Protein 6.7 (6.0-8.3) gm/dl Albumin 3.8 (3.4-5.0) gm/dl Globulin 2.9 (2.5-4.0) gm/dl Albumin/Globulin Ratio 1.3 (0.9-2) Lipase 31 (11-82) U/L Urine Color Urine Appearance (Clear) Urine pH (4.5-7.5) Ur Specific Lillie (1.000-1.030) Urine Protein (Negative) Urine Glucose (UA) (Negative) Urine Ketones (Negative) Urine Blood (Negative) Urine Nitrite (Negative) Urine Bilirubin (Negative) Urine Urobilinogen (Negative) Ur Leukocyte Esterase (Negative) Urine WBC (Auto) (0-5) /hpf Urine RBC (Auto) (0-4) /hpf U Hyaline Cast (Auto) (0-5) /lpf U Epithel Cells (Auto) (0-5) /lpf Urine Bacteria (Auto) (Negative) SARS-CoV-2, RNA, NAAT NEGATIVE (NEGATIVE) 08/12/22 Range/Units 04:50 WBC (4.8-10.8) K/ul RBC (4.20-5.40) M/uL Hgb (12.0-16.0) g/dl Hct (37.0-47.0) % MCV (80.0-100.0) fL MCH (25.0-34.0) pg MCHC (32.0-36.0) g/dL RDW Std Deviation (36.4-46.3) fL RDW Coeff of Juan Ramon (11.5-14.5) % Plt Count (130-400) K/uL MPV (9.4-12.4) fL Immature Gran % (Auto) % Neut % (Auto) % Lymph % (Auto) % [place] % (Auto) % Eos % (Auto) % Baso % (Auto) % Neut # (Auto) (1.40-6.50) K/uL Lymph # (Auto) (1.2-3.4) K/uL [place] # (Auto) (0.11-0.59) K/uL Eos # (Auto) (0-0.50) K/uL Baso # (Auto) (0-0.2) K/uL Immature Gran # (Auto) (0.01-0.20) K/uL Sodium (136-145) mmol/L Potassium (3.5-5.1) mmol/L Chloride (98-107) mmol/L Carbon Dioxide (21-32) mmol/L Anion Gap (3-11) BUN (6-23) mg/dl Creatinine (0.6-1.2) mg/dl Est Cr Clr Drug Dosing Est GFR ( Amer) ml/min Est GFR (Non-Af Amer) ml/min BUN/Creatinine Ratio (10-20) Glucose (70-99(Fasting)) mg/dl Calcium (8.6-10.3) mg/dl Total Bilirubin (0.2-1.0) mg/dl AST (13-39) U/L ALT (7-52) U/L Alkaline Phosphatase (34-104) U/L Total Protein (6.0-8.3) gm/dl Albumin (3.4-5.0) gm/dl Globulin (2.5-4.0) gm/dl Albumin/Globulin Ratio (0.9-2) Lipase (11-82) U/L Urine Color Yellow Urine Appearance Cloudy A (Clear) Urine pH 6.5 (4.5-7.5) Ur Specific Lillie > 1.045 H (1.000-1.030) Urine Protein Negative (Negative) Urine Glucose (UA) Negative (Negative) Urine Ketones Trace H (Negative) Urine Blood 1+ H (Negative) Urine Nitrite Positive A (Negative) Urine Bilirubin Negative (Negative) Urine Urobilinogen Negative (Negative) Ur Leukocyte Esterase Negative (Negative) Urine WBC (Auto) 10-30 H (0-5) /hpf Urine RBC (Auto) 0-4 (0-4) /hpf U Hyaline Cast (Auto) 1-5 (0-5) /lpf U Epithel Cells (Auto) >30 H (0-5) /lpf Urine Bacteria (Auto) 2+ H (Negative) SARS-CoV-2, RNA, NAAT (NEGATIVE) Administered Medications Discontinued Medications Fentanyl Citrate (Fentanyl Citrate Pf 100 Mcg/2 Ml Vial) 50 mcg IV NOW STA Stop: 08/12/22 03:11 Last Admin: 08/12/22 03:14 Dose: 50 mcg Documented By: DARVIN Sodium Chloride (Nss) 500 mls @ 999 mls/hr IV .Q31M STA Stop: 08/12/22 03:09 Last Infusion: 08/12/22 03:51 Dose: 0 mls/hr Documented By: Admin: 08/12/22 02:58 Dose: 999 mls/hr Documented By: DARVIN Sodium Chloride (Nss) 500 mls @ 125 mls/hr IV .Q4H ROSE Stop: 09/11/22 04:44 Last Admin: 08/12/22 04:50 Dose: Not Given Documented By: DARVIN Acetaminophen (Ofirmev) 1,000 mg in 100 mls @ 400 mls/hr IV NOW STA Stop: 08/12/22 05:53 Last Infusion: 08/12/22 06:21 Dose: 0 mls/hr Documented By: Admin: 08/12/22 05:59 Dose: 400 mls/hr Documented By: DARVIN Ioversol (Optiray 320 100ml) 94 ml IV ONCE ONE Stop: 08/12/22 03:37 Last Admin: 08/12/22 03:36 Dose: 94 ml Documented By: CARMELO Metoprolol Succinate (Metoprolol Succ 25mg Ext Rel Tab) 25 mg PO NOW STA Stop: 08/12/22 05:40 Last Admin: 08/12/22 05:59 Dose: 25 mg Documented By: DARVIN Metoprolol Tartrate (Metoprolol Tartrate 1 Mg/Ml Vial) 2.5 mg IV NOW STA Stop: 08/12/22 04:49 Last Admin: 08/12/22 05:25 Dose: Not Given Documented By: DARVIN Ondansetron HCl (Ondansetron Inj 2 Mg/Ml 2 Ml Vial) 4 mg IV NOW STA Stop: 08/12/22 02:40 Last Admin: 08/12/22 02:58 Dose: 4 mg Documented By: DARVIN Imaging Data Radiologist's Impression: Abdomen/Pelvis CT 08/12/22 02:39 Exam(s): CT ABDOMEN + PELVIS With Contrast IV Amt: 94ML OF OPTIRAY 320 EXAM: CT Abdomen and Pelvis With Intravenous Contrast CLINICAL HISTORY: Reason for exam: eval for sbo. TECHNIQUE: Axial computed tomography images of the abdomen and pelvis with intravenous contrast. CTDI is 28.14 mGy and DLP is 1454.97 mGy-cm. Automated exposure control was utilized for the study. A dose lowering technique was utilized adhering to the principles of ALARA. CONTRAST: Patient received 94ML OF OPTIRAY 320 of IV contrast COMPARISON: 02/17/2017. FINDINGS: Lung bases: Mild multilobar basilar atelectasis with interstitial prominence, suggestive of interstitial lung disease versus early fibrosis, stable in the interval. Heart: Unremarkable. No significant pericardial effusion. Normal cardiac size with coronary artery calcifications. Mediastinum: Moderate hiatal hernia. ABDOMEN: Liver: Unremarkable. No mass. Gallbladder and bile ducts: Nonvisualized gallbladder suggestive of previous cholecystectomy. Distention of the biliary system, nonspecific in the context of prior cholecystectomy. No ductal dilation. Pancreas: Unremarkable. No mass. No ductal dilation. Spleen: Unremarkable. No splenomegaly. Adrenals: Small nodule within the right adrenal gland measuring 1 x 0. 8 cm, stable in the interval and most compatible with benign process given stability. Normal left adrenal gland. Kidneys and ureters: Unremarkable. No hydronephrosis. Normal right kidney. Left upper renal pole simple cyst measuring 2 cm. Otherwise normal left kidney. Stomach and bowel: Multiple loops of small bowel distended up to a maximum diameter of 4.2 cm concerning for small bowel obstruction, zone of transition indeterminate and likely within the right lower pelvis region. Diverticulosis throughout the colon more so through the sigmoid with no signs of diverticulitis. PELVIS: Appendix: Distinct appendix not visualized with no inflammation to suggest appendicitis. Bladder: Unremarkable. No mass. Reproductive: Status post hysterectomy. ABDOMEN and PELVIS: Intraperitoneal space: Unremarkable. No free air. No significant fluid collection. 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 No acute fracture. No dislocation. Soft tissues: Unremarkable. Vasculature: Calcified atherosclerotic disease of aorta with distal aortic aneurysmal dilatation measuring 4.4 x 4.6 cm in axial dimension by 5.7 cm in craniocaudal dimension. Lymph nodes: Unremarkable. No enlarged lymph nodes. IMPRESSION: 1. Small bowel obstruction with indeterminate zone of transition, likely within the right lower pelvis. 2. Diverticulosis with no signs of diverticulitis. 3. Distal abdominal aortic aneurysm measuring 4.4 x 4.6 cm in axial dimension by 5.7 cm in craniocaudal dimension. 4. Status post cholecystectomy with nonspecific biliary distention, clinical correlation recommended. 5. Left-sided simple renal cysts most compatible with benign process. No further follow-up imaging recommended. 6. Moderate hiatal hernia. Electronically signed by: Cely Wakefield MD 08/12/22 04:32 AM Discharge Plan Visit Data Chief Complaint: Abdominal Pain Stated Complaint: VOMITING/STOMACH PAIN ED Provider: Juliana Laboy Discharge Problem: SBO (small bowel obstruction), Abdominal aortic aneurysm Forms Stand Alone Forms: [employer] Prescriptions Prescriptions: No Action fluoxetine [Prozac] 40 mg capsule 40 mg PO QAM cyanocobalamin (vitamin B-12) [Vitamin B-12] 1,000 mcg Tablet 1,000 mcg PO Q OTHER DAY potassium chloride [Klor-Con 10] 10 mEq tablet extended release 10 meq PO DAILY clopidogrel [Plavix] 75 mg tablet 75 mg PO DAILY simvastatin [Zocor] 40 mg tablet 40 mg PO HS isosorbide mononitrate 60 mg tablet extended release 24 hr 60 mg PO QAM nitroglycerin [Nitrostat] 0.4 mg Tablet, Sublingual 0.4 mg sublingual UD MDD 3 doses PRN (Reason: Chest Pain) Rx Instructions: place 1 tab under tongue as needed for chest pain gabapentin [Neurontin] 300 mg capsule 300 mg PO TID omeprazole 20 mg capsule,delayed release(DR/EC) 20 mg PO DAILYBB furosemide [Lasix] 20 mg tablet 20 mg PO UD Rx Instructions: take 1 tablet every day + an additional 1 tablet 3-4 days per week metoprolol succinate [Toprol XL] 25 mg tablet extended release 24 hr 12.5 mg PO DAILY cholecalciferol (vitamin D3) [Vitamin D3] 1,000 unit Capsule 2,000 unit PO DAILY aspirin [Aspirin Low-Strength] 81 mg Tablet,Delayed Release (Dr/Ec) 81 mg PO DAILY fluoxetine 20 mg Capsule 20 mg PO .EVERY AFTERNOON levothyroxine 125 mcg Tablet 125 mcg PO DAILYBB hydrocodone-acetaminophen 10-325 mg Tablet 1 tab PO Q6H MDD 3 per day PRN (Reason: Pain) lisinopril 5 mg Tablet 2.5 mg PO QAM diclofenac sodium 1 % Gel 2 g TOPICAL QID PRN (Reason: each hand arthritis pain) triamcinolone acetonide 0.1 % Lotion 1 applic TOPICAL BID Rx Instructions: apply to seborrheic dermatitis ketoconazole 2 % Shampoo 1 ea TOPICAL .EVERY 3 DAYS Rx Instructions: shampoo twice weekly for 4 weeks for seborrheic dermatitis bupropion HCl 150 mg tablet sustained-release 12 hr 150 mg PO BID Referrals Referrals: Surya Fowler MD [Primary Care Provider] - Abdominal aortic aneurysm Qualifiers: Abdominal aorta location: unspecified Presence of rupture: without rupture Qualified Code(s): I71.40 - Abdominal aortic aneurysm, without rupture, unspecified
--- NOTE | 2022-08-12 04:33 | CT Scan Report ---
Exam(s): CT ABDOMEN + PELVIS With Contrast IV Amt: 94ML OF OPTIRAY 320 EXAM: CT Abdomen and Pelvis With Intravenous Contrast CLINICAL HISTORY: Reason for exam: eval for sbo. TECHNIQUE: Axial computed tomography images of the abdomen and pelvis with intravenous contrast. CTDI is 28.14 mGy and DLP is 1454.97 mGy-cm. Automated exposure control was utilized for the study. A dose lowering technique was utilized adhering to the principles of ALARA. CONTRAST: Patient received 94ML OF OPTIRAY 320 of IV contrast COMPARISON: 02/17/2017. FINDINGS: Lung bases: Mild multilobar basilar atelectasis with interstitial prominence, suggestive of interstitial lung disease versus early fibrosis, stable in the interval. Heart: Unremarkable. No significant pericardial effusion. Normal cardiac size with coronary artery calcifications. Mediastinum: Moderate hiatal hernia. ABDOMEN: Liver: Unremarkable. No mass. Gallbladder and bile ducts: Nonvisualized gallbladder suggestive of previous cholecystectomy. Distention of the biliary system, nonspecific in the context of prior cholecystectomy. No ductal dilation. Pancreas: Unremarkable. No mass. No ductal dilation. Spleen: Unremarkable. No splenomegaly. Adrenals: Small nodule within the right adrenal gland measuring 1 x 0. 8 cm, stable in the interval and most compatible with benign process given stability. Normal left adrenal gland. Kidneys and ureters: Unremarkable. No hydronephrosis. Normal right kidney. Left upper renal pole simple cyst measuring 2 cm. Otherwise normal left kidney. Stomach and bowel: Multiple loops of small bowel distended up to a maximum diameter of 4.2 cm concerning for small bowel obstruction, zone of transition indeterminate and likely within the right lower pelvis region. Diverticulosis throughout the colon more so through the sigmoid with no signs of diverticulitis. PELVIS: Appendix: Distinct appendix not visualized with no inflammation to suggest appendicitis. Bladder: Unremarkable. No mass. Reproductive: Status post hysterectomy. ABDOMEN and PELVIS: Intraperitoneal space: Unremarkable. No free air. No significant fluid collection. 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 No acute fracture. No dislocation. Soft tissues: Unremarkable. Vasculature: Calcified atherosclerotic disease of aorta with distal aortic aneurysmal dilatation measuring 4.4 x 4.6 cm in axial dimension by 5.7 cm in craniocaudal dimension. Lymph nodes: Unremarkable. No enlarged lymph nodes. IMPRESSION: 1. Small bowel obstruction with indeterminate zone of transition, likely within the right lower pelvis. 2. Diverticulosis with no signs of diverticulitis. 3. Distal abdominal aortic aneurysm measuring 4.4 x 4.6 cm in axial dimension by 5.7 cm in craniocaudal dimension. 4. Status post cholecystectomy with nonspecific biliary distention, clinical correlation recommended. 5. Left-sided simple renal cysts most compatible with benign process. No further follow-up imaging recommended. 6. Moderate hiatal hernia. Electronically signed by: Cely Wakefield MD 08/12/22 04:32 AM
[2022-08-12] MEDS ORDERED: SODIUM CHLORIDE 0.9% 500 ML IV SCH (04:45)
[2022-08-12] MEDS ORDERED: LACTATED RINGER'S 1,000 ML IV ONE (04:47)
[2022-08-12] MEDS ORDERED: METOPROLOL TARTRATE 1 MG/ML VIAL IV STA (04:48)
[2022-08-12 05:01] LABS: Appearance Urine Cloudy (Clear); Bilirubin Urine Negative (Negative); Blood Urine 1+ (Negative); Color Urine Yellow; Glucose Urine UA Negative (Negative); Ketones Urine Trace (Negative); Leukocyte Esterase Urine Negative (Negative); Nitrite Urine Positive (Negative); Protein Urine Negative (Negative); Specific Gravity Urine > 1.045 (1.000-1.030); Urobilinogen Urine Negative (Negative); pH Urine 6.5 (4.5-7.5)
[2022-08-12 05:18] LABS: Epithelial Cell Urine Auto >30 /lpf (0-5)
[2022-08-12 05:19] LABS: Bacteria Urine Automated 2+ (Negative); RBC Urine Automated 0-4 /hpf (0-4)
--- NOTE | 2022-08-12 05:34 | History & Physical Report ---
Date of Service August 12, 2022 Assessment & Plan (1) Abdominal pain: Plan: Multifactorial: Recurrent SBO complicated UTI, no sepsis for now Hypertension, elevated sed rate discomfort hx CAD status post stent AAA, some enlargement from last measurement of 4.2 cm on outpatient aortic duplex done September 2021 valvular heart disease (moderate , mild AR/MR/TR) YUE on CPAP hyperlipidemia, on statin Rx hypothyroidism, euthyroid as of recent outpatient TSH anxiety/mood disorder Chronic back pain hyperglycemia likely prediabetes, outpatient hemoglobin A1c of 5.8 last January 2022 past tobacco abuse Medical telemetry given BP elevation Analgesia bowel rest, gentle IV hydration given valvular heart disease NGT insertion if with recurrent emesis Surgery consult Re: Recurrent SBO Urine CS, Ceftriaxone Outpatient Vascular Surgery contemplated for AAA as per family DVT prophylaxis. Lovenox subcu DNR Patient daughter requesting updates from providers. Miss [place], contact #[phone]. Text document was generated using [employer] voice recognition software. It may contain grammatical or spelling errors. Kindly contact undersigned for clarification of any documentation item in question. History of Present Illness Chief Complaint: Abdominal pain Primary Care Provider: Surya Fowler MD History obtained from patient, family, and records. Medical history significant for CAD status post stent, AAA, valvular heart disease (moderate , mild AR/MR/TR), YUE on CPAP, hypertension, hyperlipidemia, hypothyroidism, anxiety/mood disorder, recurrent bowel obstruction, past tobacco abuse. Last confinement 2017 for renal colic. Yesterday patient experienced central abdominal pain with back radiation followed by nausea and emesis. Somewhat different from previous bouts of bowel obstruction. Headache following emesis episode. Good bowel movement. Patient denies chest pain, SOB. No fever, no chills. Patient brought to ER for evaluation. Highest SBP at the ER noted to be 160s. 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 Allergies Allergy/AdvReac Type Severity Reaction Status Date / Time NSAIDS (Non-Steroidal Allergy Unknown IBUPROFEN/S Verified 09/24/18 22:03 Anti-Inflamma ULINDAC promethazine AdvReac Unknown "MADE ME Verified 09/24/18 22:03 WANT TO JUMP OUT OF MY SKIN" Home Medications Medication Instructions Recorded Confirmed Type cholecalciferol (vitamin D3) 25 2,000 unit PO DAILY 09/24/18 08/12/22 History mcg (1,000 unit) capsule (Vitamin D3) clopidogrel 75 mg tablet (Plavix) 75 mg PO DAILY 09/24/18 08/12/22 History cyanocobalamin (vitamin B-12) 1,000 mcg PO Q OTHER DAY 09/24/18 08/12/22 History 1,000 mcg tablet (Vitamin B-12) fluoxetine 40 mg capsule (Prozac) 40 mg PO QAM 09/24/18 08/12/22 History furosemide 20 mg tablet (Lasix) 20 mg PO UD 09/24/18 08/12/22 History gabapentin 300 mg capsule 300 mg PO TID 09/24/18 08/12/22 History (Neurontin) isosorbide mononitrate 60 mg 60 mg PO QAM 09/24/18 08/12/22 History tablet,extended release 24 hr metoprolol succinate 25 mg 12.5 mg PO DAILY 09/24/18 08/12/22 History tablet,extended release 24 hr (Toprol XL) nitroglycerin 0.4 mg sublingual 0.4 mg sublingual UD PRN Chest Pain 09/24/18 08/12/22 History tablet (Nitrostat) omeprazole 20 mg capsule,delayed 20 mg PO DAILYBB 09/24/18 08/12/22 History release potassium chloride 10 mEq 10 meq PO DAILY 09/24/18 08/12/22 History tablet,extended release (Klor-Con) simvastatin 40 mg tablet (Zocor) 40 mg PO HS 09/24/18 08/12/22 History aspirin 81 mg tablet,delayed 81 mg PO DAILY 08/12/22 08/12/22 History release bupropion HCl 150 mg tablet,12 hr 150 mg PO BID 08/12/22 08/12/22 History sustained-release diclofenac sodium 1 % topical gel 2 g topical QID PRN each hand 08/12/22 08/12/22 History arthritis pain fluoxetine 20 mg capsule 20 mg PO .EVERY AFTERNOON 08/12/22 08/12/22 History hydrocodone 10 mg-acetaminophen 1 tab PO Q6H PRN Pain 08/12/22 08/12/22 History 325 mg tablet ketoconazole 2 % shampoo 1 ea topical .EVERY 3 DAYS 08/12/22 08/12/22 History levothyroxine 125 mcg tablet 125 mcg PO DAILYBB 08/12/22 08/12/22 History lisinopril 5 mg tablet 2.5 mg PO QAM 08/12/22 08/12/22 History triamcinolone acetonide 0.1 % 1 applic topical BID 08/12/22 08/12/22 History lotion Past Med/Surg History Medical History Hypertension Ureteral stone Surgical History History of cholecystectomy Social History Smoking Status: Former smoker Tobacco Type: Cigarettes Feels Safe at Home: Yes Review of Systems Review of Systems: As per HPI, all other systems reviewed and negative Physical Exam Physical Exam: GENERAL: Comfortable, pleasant, slightly anxious, no respiratory distress SKIN: Normal color, warm HEENT: [place] palpebral conjunctivae, no ptosis, dry buccal mucosa NECK : Supple, no tenderness CHEST : CTA, no tenderness HEART : RRR, systolic murmur over precordium ABDOMEN: Some distention, central abdominal tenderness EXTREMITIES : Minimal LE swelling, no LE tenderness, no other conspicuous deformities noted NEUROLOGIC : Coherent, no facial asymmetry, no other gross focality Results & Data Results & Data Vital Signs (Past 12 Hours) Vital Signs Temp Pulse Resp BP BP Pulse Ox O2 Del Method 08/12/22 05:24 140/91 08/12/22 02:41 93 Room Air 08/12/22 02:35 67 08/12/22 02:05 36.5 C 67 22 165/104 H 95 Room Air Laboratory Results Laboratory Results WBC 12.89 K/ul (4.8-10.8) H 08/12/22 02:54 RBC 3.93 M/uL (4.20-5.40) L 08/12/22 02:54 Hgb 12.5 g/dl (12.0-16.0) 08/12/22 02:54 Hct 38.2 % (37.0-47.0) 08/12/22 02:54 MCV 97.2 fL (80.0-100.0) 08/12/22 02:54 MCH 31.8 pg (25.0-34.0) 08/12/22 02:54 MCHC 32.7 g/dL (32.0-36.0) 08/12/22 02:54 RDW Std Deviation 46.3 fL (36.4-46.3) 08/12/22 02:54 RDW Coeff of Juan Ramon 12.9 % (11.5-14.5) 08/12/22 02:54 Plt Count 200 K/uL (130-400) 08/12/22 02:54 MPV 10.2 fL (9.4-12.4) 08/12/22 02:54 Immature Gran % (Auto) 0.5 % 08/12/22 02:54 Neut % (Auto) 81.4 % 08/12/22 02:54 Lymph % (Auto) 11.1 % 08/12/22 02:54 [place] % (Auto) 5.9 % 08/12/22 02:54 Eos % (Auto) 0.9 % 08/12/22 02:54 Baso % (Auto) 0.2 % 08/12/22 02:54 Neut # (Auto) 10.48 K/uL (1.40-6.50) H 08/12/22 02:54 Lymph # (Auto) 1.43 K/uL (1.2-3.4) 08/12/22 02:54 [place] # (Auto) 0.76 K/uL (0.11-0.59) H 08/12/22 02:54 Eos # (Auto) 0.12 K/uL (0-0.50) 08/12/22 02:54 Baso # (Auto) 0.03 K/uL (0-0.2) 08/12/22 02:54 Immature Gran # (Auto) 0.07 K/uL (0.01-0.20) 08/12/22 02:54 Sodium 140 mmol/L (136-145) 08/12/22 02:54 Potassium 3.8 mmol/L (3.5-5.1) 08/12/22 02:54 Chloride 105 mmol/L (98-107) 08/12/22 02:54 Carbon Dioxide 28 mmol/L (21-32) 08/12/22 02:54 Anion Gap 7 (3-11) 08/12/22 02:54 BUN 18 mg/dl (6-23) 08/12/22 02:54 Creatinine 0.95 mg/dl (0.6-1.2) 08/12/22 02:54 Est Cr Clr Drug Dosing Not Reportable 08/12/22 02:54 Est GFR ( Amer) 62.9 ml/min 08/12/22 02:54 Est GFR (Non-Af Amer) 54.2 ml/min 08/12/22 02:54 BUN/Creatinine Ratio 18.9 (10-20) 08/12/22 02:54 Glucose 137 mg/dl (70-99(Fasting)) H 08/12/22 02:54 Calcium 9.1 mg/dl (8.6-10.3) 08/12/22 02:54 Total Bilirubin 0.4 mg/dl (0.2-1.0) 08/12/22 02:54 AST 10 U/L (13-39) L 08/12/22 02:54 ALT 9 U/L (7-52) 08/12/22 02:54 Alkaline Phosphatase 68 U/L (34-104) 08/12/22 02:54 Total Protein 6.7 gm/dl (6.0-8.3) 08/12/22 02:54 Albumin 3.8 gm/dl (3.4-5.0) 08/12/22 02:54 Globulin 2.9 gm/dl (2.5-4.0) 08/12/22 02:54 Albumin/Globulin Ratio 1.3 (0.9-2) 08/12/22 02:54 Lipase 31 U/L (11-82) 08/12/22 02:54 Urine Color Yellow 08/12/22 04:50 Urine Appearance Cloudy (Clear) A 08/12/22 04:50 Urine pH 6.5 (4.5-7.5) 08/12/22 04:50 Ur Specific [place] > 1.045 (1.000-1.030) H 08/12/22 04:50 Urine Protein Negative (Negative) 08/12/22 04:50 Urine Glucose (UA) Negative (Negative) 08/12/22 04:50 Urine Ketones Trace (Negative) H 08/12/22 04:50 Urine Blood 1+ (Negative) H 08/12/22 04:50 Urine Nitrite Positive (Negative) A 08/12/22 04:50 Urine Bilirubin Negative (Negative) 08/12/22 04:50 Urine Urobilinogen Negative (Negative) 08/12/22 04:50 Ur Leukocyte Esterase Negative (Negative) 08/12/22 04:50 Urine WBC (Auto) 10-30 /hpf (0-5) H 08/12/22 04:50 Urine RBC (Auto) 0-4 /hpf (0-4) 08/12/22 04:50 U Hyaline Cast (Auto) 1-5 /lpf (0-5) 08/12/22 04:50 U Epithel Cells (Auto) >30 /lpf (0-5) H 08/12/22 04:50 Urine Bacteria (Auto) 2+ (Negative) H 08/12/22 04:50 SARS-CoV-2, RNA, NAAT NEGATIVE (NEGATIVE) 08/12/22 04:50 Impressions Abdomen/Pelvis CT 08/12/22 02:39 Exam(s): CT ABDOMEN + PELVIS With Contrast IV Amt: 94ML OF OPTIRAY 320 EXAM: CT Abdomen and Pelvis With Intravenous Contrast CLINICAL HISTORY: Reason for exam: eval for sbo. TECHNIQUE: Axial computed tomography images of the abdomen and pelvis with intravenous contrast. CTDI is 28.14 mGy and DLP is 1454.97 mGy-cm. Automated exposure control was utilized for the study. A dose lowering technique was utilized adhering to the principles of ALARA. CONTRAST: Patient received 94ML OF OPTIRAY 320 of IV contrast COMPARISON: 02/17/2017. FINDINGS: Lung bases: Mild multilobar basilar atelectasis with interstitial prominence, suggestive of interstitial lung disease versus early fibrosis, stable in the interval. Heart: Unremarkable. No significant pericardial effusion. Normal cardiac size with coronary artery calcifications. Mediastinum: Moderate hiatal hernia. ABDOMEN: Liver: Unremarkable. No mass. Gallbladder and bile ducts: Nonvisualized gallbladder suggestive of previous cholecystectomy. Distention of the biliary system, nonspecific in the context of prior cholecystectomy. No ductal dilation. Pancreas: Unremarkable. No mass. No ductal dilation. Spleen: Unremarkable. No splenomegaly. Adrenals: Small nodule within the right adrenal gland measuring 1 x 0. 8 cm, stable in the interval and most compatible with benign process given stability. Normal left adrenal gland. Kidneys and ureters: Unremarkable. No hydronephrosis. Normal right kidney. Left upper renal pole simple cyst measuring 2 cm. Otherwise normal left kidney. Stomach and bowel: Multiple loops of small bowel distended up to a maximum diameter of 4.2 cm concerning for small bowel obstruction, zone of transition indeterminate and likely within the right lower pelvis region. Diverticulosis throughout the colon more so through the sigmoid with no signs of diverticulitis. PELVIS: Appendix: Distinct appendix not visualized with no inflammation to suggest appendicitis. Bladder: Unremarkable. No mass. Reproductive: Status post hysterectomy. ABDOMEN and PELVIS: Intraperitoneal space: Unremarkable. No free air. No significant fluid collection. 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 No acute fracture. No dislocation. Soft tissues: Unremarkable. Vasculature: Calcified atherosclerotic disease of aorta with distal aortic aneurysmal dilatation measuring 4.4 x 4.6 cm in axial dimension by 5.7 cm in craniocaudal dimension. Lymph nodes: Unremarkable. No enlarged lymph nodes. IMPRESSION: 1. Small bowel obstruction with indeterminate zone of transition, likely within the right lower pelvis. 2. Diverticulosis with no signs of diverticulitis. 3. Distal abdominal aortic aneurysm measuring 4.4 x 4.6 cm in axial dimension by 5.7 cm in craniocaudal dimension. 4. Status post cholecystectomy with nonspecific biliary distention, clinical correlation recommended. 5. Left-sided simple renal cysts most compatible with benign process. No further follow-up imaging recommended. 6. Moderate hiatal hernia. Electronically signed by: Cely Wakefield MD 08/12/22 04:32 AM
[2022-08-12] MEDS ORDERED: METOPROLOL SUCC 25MG EXT REL TAB PO STA (05:39)
[2022-08-12] MEDS ORDERED: ACETAMINOPHEN 325 MG TAB PO PRN (05:39)
[2022-08-12] MEDS ORDERED: ACETAMINOPHEN 1,000 MG/100 ML VIAL IV STA (05:39)
[2022-08-12] MEDS ORDERED: METOCLOPRAMIDE HCL INJ 5 MG/ML 2 ML VIAL IV PRN (05:40)
--- NOTE | 2022-08-12 05:58 | Surgery Consultation ---
Date of Consultation August 12, 2022 Assessment & Plan (1) Small bowel obstruction: The patient is being admitted on the hospitalist service. We recommend proceeding as follows: Implement n.p.o. status Provide IV fluid for hydration As the patient's abdomen is soft and nondistended and she has not had any emesis since 1:30 AM I feel we can hold on placing an NG tube at this time. I did discuss with the patient that if she has any worsening of her symptomatology such as nausea and vomiting or worsening abdominal pain/distention we may need to revisit the modality of placing an NG tube. If the patient's small bowel obstruction fails to open up consideration be given to performing a contrast study in the future We will follow serial abdominal exams Additional recommendations be forthcoming based on her clinical course as it unfolds Supervising Physician Co-Signing Physician Notes feels much better no further nausea no abd pain History of Present Illness Reason for Consultation: Small bowel obstruction History of Present Illness This is an 87-year-old female who presented to the emergency department secondary to abdominal pain. She notes on the evening of August 11 at approximate 8:00 PM she developed some nonspecific/generalized abdominal pain along with some abdominal bloating. She had nausea and vomiting on 2 occasions with her most recent bout of emesis at approximately 1:30 AM. Because of the symptoms she presented the emergency department. She does not note any modifying factors to her symptoms other than medicines administered in the emergency department did provide symptomatic relief. She notes that she had a normal bowel movement yesterday and she has been passing flatus including during her time in the emergency department. She has had multiple abdominal surgeries including an open cholecystectomy, a hysterectomy, and an appendectomy. She says she has had at least 4-5 small bowel obstructions since her surgeries but is never required any surgical intervention for the small bowel obstructions themselves. Since arrival to the emergency department the patient has had labs and imaging which I independent reviewed. CT scan of the abdomen pelvis showed multiple loops of distended small bowel which was concerning for small bowel obstruction with a probable transition zone in the right lower pelvis. Labs include a CBC her white blood cell count was elevated at 12.8. Hemoglobin, hematocrit, platelet count were normal. Chemistry profile showed sodium, potassium, BUN, and creatinine were all within normal range. Urinalysis was positive for nitrites and had 10-30 white blood cells per high-power field along with 2+ bacteria. There is no leukocyte Estrace noted on the study. A COVID test was negative. Since arrival to the emergency department the patient has received analgesics in the form of fentanyl along with antiemetics in the form of Zofran. She is also received some intravenous fluids and is noted improvement of her symptomatology. At the time my interview she was resting comfortably in bed in no distress. Allergies Allergy/AdvReac Type Severity Reaction Status Date / Time NSAIDS (Non-Steroidal Allergy Unknown IBUPROFEN/S Verified 08/12/22 08:31 Anti-Inflamma ULINDAC promethazine AdvReac Unknown "MADE ME Verified 08/12/22 08:31 WANT TO JUMP OUT OF MY SKIN" Home Medications Medication Instructions Recorded Confirmed Type cholecalciferol (vitamin D3) 25 2,000 unit PO DAILY 09/24/18 08/12/22 History mcg (1,000 unit) capsule (Vitamin D3) clopidogrel 75 mg tablet (Plavix) 75 mg PO DAILY 09/24/18 08/12/22 History cyanocobalamin (vitamin B-12) 1,000 mcg PO Q OTHER DAY 09/24/18 08/12/22 History 1,000 mcg tablet (Vitamin B-12) fluoxetine 40 mg capsule (Prozac) 40 mg PO QAM 09/24/18 08/12/22 History furosemide 20 mg tablet (Lasix) 20 mg PO UD 09/24/18 08/12/22 History gabapentin 300 mg capsule 300 mg PO TID 09/24/18 08/12/22 History (Neurontin) isosorbide mononitrate 60 mg 60 mg PO QAM 09/24/18 08/12/22 History tablet,extended release 24 hr metoprolol succinate 25 mg 12.5 mg PO DAILY 09/24/18 08/12/22 History tablet,extended release 24 hr (Toprol XL) nitroglycerin 0.4 mg sublingual 0.4 mg sublingual UD PRN Chest Pain 09/24/18 08/12/22 History tablet (Nitrostat) omeprazole 20 mg capsule,delayed 20 mg PO DAILYBB 09/24/18 08/12/22 History release potassium chloride 10 mEq 10 meq PO DAILY 09/24/18 08/12/22 History tablet,extended release (Klor-Con) simvastatin 40 mg tablet (Zocor) 40 mg PO HS 09/24/18 08/12/22 History aspirin 81 mg tablet,delayed 81 mg PO DAILY 08/12/22 08/12/22 History release bupropion HCl 150 mg tablet,12 hr 150 mg PO BID 08/12/22 08/12/22 History sustained-release diclofenac sodium 1 % topical gel 2 g topical QID PRN each hand 08/12/22 08/12/22 History arthritis pain fluoxetine 20 mg capsule 20 mg PO .EVERY AFTERNOON 08/12/22 08/12/22 History hydrocodone 10 mg-acetaminophen 1 tab PO Q6H PRN Pain 08/12/22 08/12/22 History 325 mg tablet ketoconazole 2 % shampoo 1 ea topical .EVERY 3 DAYS 08/12/22 08/12/22 History levothyroxine 125 mcg tablet 125 mcg PO DAILYBB 08/12/22 08/12/22 History lisinopril 5 mg tablet 2.5 mg PO QAM 08/12/22 08/12/22 History triamcinolone acetonide 0.1 % 1 applic topical BID 08/12/22 08/12/22 History lotion Patient History Medical History Hypertension Ureteral stone Surgical History History of cholecystectomy Social History Smoking Status: Never smoker Tobacco Type: Cigarettes Hx Alcohol Use: No Hx Substance Use: No Personal 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 Network Engineer Required: No Beliefs That Will Affect Care: None Current Living Situation: Alone Feels Safe at Home: Yes Assistive Devices: Cane, Denture - Upper and Walker Review of Systems Constitutional: no fever and no chills Ear, Nose, Mouth, Throat: + hearing loss Respiratory: no cough and no dyspnea Cardiovascular: no chest pain Gastrointestinal: as per Subjective / HPI Genitourinary: no dysuria Musculoskeletal: no back pain Integumentary: no rash Neurologic: no localized weakness Physical Exam Constitutional: WD/WN, vitals as above Eyes: no conjunctival abnormality ENMT: Ears: + hearing impairment; no external ear abnormality Mouth: no oropharynx abnormality Neck: trachea midline Respiratory: normal respiratory effort; no respiratory distress and no labored breathing Cardiovascular: Rate/Rhythm: regular rate and regular rhythm Gastrointestinal (Abdomen): Abdomen is rotund but soft and nondistended. It is nonrigid. Bowel sounds are present. Patient had a well-healed Pfannenstiel incision from hysterectomy. She also had a well-healed incision in the right lower quadrant and a well- healed Hector incision in the right upper quadrant from previous appendectomy and cholecystectomy. I do not appreciate any hernias. There is no rebound tenderness or guarding. There is some pain noted with palpation just superior to the umbilicus. Musculoskeletal: No calf tenderness Skin: no rashes Neurologic: moves all extremities Psychiatric: A+Ox3, euthymic affect Results & Data Vital Signs (Past 12 Hours) Vital Signs Temp Pulse Resp BP BP Pulse Ox O2 Del Method 08/12/22 05:24 140/91 08/12/22 02:41 93 Room Air 08/12/22 02:35 67 08/12/22 02:05 36.5 C 67 22 165/104 H 95 Room Air PG Care Time/CCT Total # of Minutes Spent Total Time Spent with Patient: Total time spent is greater than 50% in coordination of care (as documented) at patient's floor/unit and/or counseling patient: Coding Level of Care Code 49760 INT INP/OBS CARE 3/75MIN Diagnoses Small bowel obstruction K56.609
[2022-08-12 07:01] LABS: Magnesium 1.9 mg/dl (1.7-2.4)
[2022-08-12] MEDS ORDERED: DICLOFENAC SOD 1% GEL 100 GM TUBE EXT PRN (08:14)
[2022-08-12] MEDS ORDERED: CLOPIDOGREL BISULFATE 75 MG TAB PO SCH (09:00)
[2022-08-12] MEDS: cefTRIAXone SODIUM 2,000 MG in DEXTROSE 5% 50 ML IV SCH (09:43)
[2022-08-12] MEDS: HYDROCODONE/ACETAMOPHEN 5/325MG TAB PO PRN ×2 (09:46→17:50)
[2022-08-12] MEDS: buPROPion SR 150 MG TABCR PO SCH ×2 (09:46→20:24)
[2022-08-12] MEDS: FLUoxetine HCL 20 MG CAP PO SCH ×2 (09:47→14:53)
[2022-08-12] MEDS: GABAPENTIN 300 MG CAP PO SCH ×3 (09:47→20:24)
[2022-08-12] MEDS: ISOSORBIDE MONO EXTENDED REL 60 MG TABCR PO SCH (09:47)
[2022-08-12] MEDS: ASPIRIN 81 MG ECTAB PO SCH (09:47)
[2022-08-12] MEDS: lisinopril 2.5 MG TAB PO SCH (09:48)
[2022-08-12] MEDS: ENOXAPARIN INJ 40 MG/0.4 ML SYR SQ SCH (09:48)
[2022-08-12] MEDS: PANTOprazole 40 MG TAB PO SCH (09:48)
[2022-08-12] MEDS: LEVOTHYROXINE SODIUM 125 MCG TABLET PO SCH (09:51)
[2022-08-12] MEDS: CYANOCOBALAMIN (B-12) 500 MCG TABLET PO SCH (09:51)
--- NOTE | 2022-08-12 15:05 | Hospitalist Progress Note ---
Date of Service August 12, 2022 Assessment & Plan (1) SBO (small bowel obstruction): Plan: -WBC 13. No fevers. No hemodynamic instability. -Feels better, no further nausea/vomiting. Does not need NGT currently -Continue to monitor -Repeat CBC, BMP tomorrow -Appreciate Surgery input -hold plavix (she takes aspirin/plavix for distant history of cardiac stents, none within past 1 year) in event she needs surgery -continue LR at 60 cc/hr Plan Abdominal aortic aneurysm -Seen on CT A/P. She is followed by Cardiology for this and sounds like she was also recently referred to see a specialist (vascular surgeon?) for surveillance. Recent Abdominal U/s 07/31/2022 which I can not access report, but patient was told it was unchanged. Hypothyroidism Levothyroxine 125mcg daily YUE CAD Moderate Bilatral carotid artery stenosis -continue aspirin, statin. Hold plavix -hold lasix while NPO -continue isosorbide mononitrate 60mg daily, lisinopril 2.5mg daily, toprol 12.5mg daily Depression -fluoxetine, Buspar DVT ppx SQ heparin Admission and Anticipated Discharge Date Admission Date: August 12, 2022 Subjective Abdominal pain is improved No nausea/vomiting Review of Systems Review of Systems: As above Physical Exam Physical Exam: pleasant, comfortable, appears stated age Respiratory: breathing comfortably, no wheezing/rhonchi/rales Cardiovascular: regular rate and rhythm, +systolic murmur Gastrointestinal (Abdomen): hypoactive, no distension, no rebound or guarding, obese Musculoskeletal: no edema Neurologic: awake, alert, spontaneously moving extremities Results & Data Results & Data Vital Signs (Past 12 Hours) Vital Signs Temp Pulse Pulse Resp BP Pulse Ox O2 Del Method 08/12/22 14:55 51 L 08/12/22 08:15 66 08/12/22 10:51 36.6 C 61 17 115/57 L 98 Nasal Cannula 08/12/22 10:16 Nasal Cannula 08/12/22 08:15 36.9 C 65 20 144/76 H 95 Nasal Cannula 08/12/22 07:53 67 20 150/104 H 94 Room Air 08/12/22 06:00 69 18 149/114 H 95 Nasal Cannula 08/12/22 05:24 140/91 O2 Flow Rate 08/12/22 14:55 08/12/22 08:15 06/25/23 10:51 1 08/12/22 10:16 2 08/12/22 08:15 2 08/12/22 07:53 08/12/22 06:00 2 08/12/22 05:24
[2022-08-12] MEDS: SIMVASTATIN 40 MG TAB PO SCH (20:24)
[2022-08-13] MEDS: LEVOTHYROXINE SODIUM 125 MCG TABLET PO SCH (06:18)
[2022-08-13] MEDS: PANTOprazole 40 MG TAB PO SCH (06:18)
[2022-08-13 07:25] LABS: Basophils # (auto) 0.02 K/uL (0-0.2); Basophils % (auto) 0.3 %; Eosinophils # (auto) 0.18 K/uL (0-0.50); Eosinophils % (auto) 2.9 %; Hematocrit (blood only) 34.3 % (37.0-47.0); Immature Granulocytes # (auto) 0.01 K/uL (0.01-0.20); Immature Granulocytes % (auto) 0.2 %; Lymphocytes # (auto) 2.55 K/uL (1.2-3.4); Lymphocytes % (auto) 41.5 %; Mean Corpuscular Hemoglobin 31.4 pg (25.0-34.0); Mean Corpuscular Hgb Conc 32.1 g/dL (32.0-36.0); Mean Platelet Volume 10.4 fL (9.4-12.4); Monocytes # (auto) 0.52 K/uL (0.11-0.59); Monocytes % (auto) 8.5 %; Neutrophils # (auto) 2.86 K/uL (1.40-6.50); Neutrophils % (auto) 46.6 %; Platelet Count 180 K/uL (130-400); RDW Coefficient of Variation 13.2 % (11.5-14.5); RDW Standard Deviation 47.3 fL (36.4-46.3); White Blood Count 6.14 K/ul (4.8-10.8)
[2022-08-13] MEDS: HYDROCODONE/ACETAMOPHEN 5/325MG TAB PO PRN ×2 (07:27→16:41)
--- NOTE | 2022-08-13 07:28 | Surgery Progress Note ---
Date of Service August 13, 2022 Assessment & Plan (1) Small bowel obstruction: Plan: 08/13/22 PAD #1 At this point we will start her on a diet low fiber and if she tolerates it and has no issue from the surgical point of view she can be discharged Would recommend that she be kept on a low fiber diet until stools normalize The patient is being admitted on the hospitalist service. We recommend proceeding as follows: Implement n.p.o. status Provide IV fluid for hydration As the patient's abdomen is soft and nondistended and she has not had any emesis since 1:30 AM I feel we can hold on placing an NG tube at this time. I did discuss with the patient that if she has any worsening of her symptomatology such as nausea and vomiting or worsening abdominal pain/distention we may need to revisit the modality of placing an NG tube. If the patient's small bowel obstruction fails to open up consideration be given to performing a contrast study in the future We will follow serial abdominal exams Additional recommendations be forthcoming based on her clinical course as it unfolds Admission and Anticipated Discharge Date Admission Date: August 12, 2022 Subjective Feels much better than yesterday no abdominal discomfort no nausea positive flatus Physical Exam Physical Exam: Alert coherent resting comfortably without any issues Abdomen is soft nontender no guarding Results & Data Vital Signs (Past 12 Hours) Vital Signs Temp Pulse Pulse Resp BP Pulse Ox O2 Del Method 08/13/22 04:33 36.8 C 58 L 18 128/74 96 Nasal Cannula 08/12/22 23:52 56 L 08/12/22 23:24 Nasal Cannula 08/12/22 22:35 36.7 C 54 L 18 108/64 95 Nasal Cannula 08/12/22 19:45 36.7 C 58 L 18 110/61 97 Nasal Cannula O2 Flow Rate 08/13/22 04:33 1 08/12/22 23:52 08/12/22 23:24 1 08/12/22 22:35 1 08/12/22 19:45 1
[2022-08-13 07:46] LABS: Albumin Globulin Ratio 1.3 (0.9-2); Albumin Level 3.2 gm/dl (3.4-5.0); Bilirubin,Total 0.5 mg/dl (0.2-1.0); Creatinine Clr Calc Pharmacy 50.2 ml/min; Est GFR (African American) 67.1 ml/min; Est GFR (Non-African American) 57.9 ml/min; Globulin 2.5 gm/dl (2.5-4.0); Total Protein 5.7 gm/dl (6.0-8.3)
[2022-08-13] MEDS: cefTRIAXone SODIUM 2,000 MG in DEXTROSE 5% 50 ML IV SCH (08:00)
[2022-08-13] MEDS: GABAPENTIN 300 MG CAP PO SCH ×3 (08:02→20:45)
[2022-08-13] MEDS: buPROPion SR 150 MG TABCR PO SCH ×2 (08:02→20:44)
[2022-08-13] MEDS: FLUoxetine HCL 20 MG CAP PO SCH ×2 (08:03→13:41)
[2022-08-13] MEDS: ISOSORBIDE MONO EXTENDED REL 60 MG TABCR PO SCH (08:03)
[2022-08-13] MEDS: ASPIRIN 81 MG ECTAB PO SCH (08:03)
[2022-08-13] MEDS: ENOXAPARIN INJ 40 MG/0.4 ML SYR SQ SCH (08:04)
[2022-08-13] MEDS: METOPROLOL SUCC 25MG EXT REL TAB PO SCH (08:04)
[2022-08-13] MEDS: lisinopril 2.5 MG TAB PO SCH (08:04)
--- NOTE | 2022-08-13 13:30 | Hospitalist Progress Note ---
Date of Service August 13, 2022 Assessment & Plan (1) SBO (small bowel obstruction): Plan: -Appreciate Surgery input, diet advanced to low fiber today -continue to hold plavix (she takes aspirin/plavix for distant history of cardiac stents, none within past 1 year) in event she needs surgery -will dc IVF Plan Abdominal aortic aneurysm -Seen on CT A/P. She is followed by Cardiology for this and sounds like she was also recently referred to see a specialist (vascular surgeon?) for surveillance. Recent Abdominal U/s 07/31/2022 which I can not access report, but patient was told it was unchanged. Hypothyroidism Levothyroxine 125mcg daily YUE CAD Moderate Bilatral carotid artery stenosis -continue aspirin, statin. Hold plavix -hold lasix while NPO -continue isosorbide mononitrate 60mg daily, lisinopril 2.5mg daily, toprol 12.5mg daily Depression -fluoxetine, Buspar DVT ppx SQ heparin Disposition -From home. Patient is hoping to return home today however she has not ambulated much while here (just from bed to bathroom) and at home reports unsteadiness and falls. Will ask for PT/OT evaluation for discharge planning Admission and Anticipated Discharge Date Admission Date: August 12, 2022 Subjective Diet advanced to low fiber this morning by surgery Patient had soft scrambled eggs for breakfast and is doing well so far No abdominal pain or nausea Passing gas but no BM Ambulating only to rest room using walker with assistance. She reports history of falls recently at home Review of Systems Review of Systems: as above Physical Exam Physical Exam: Obese, no acute distress, non toxic Respiratory: breathing comfortably on room air, no wheezing/rhonchi Cardiovascular: regular rate and rhythm, no murmurs/rubs/gallops Gastrointestinal (Abdomen): soft, non tender, hypoactive BS Musculoskeletal: No edema Neurologic: awake, alert, spontaneously moving extremities Results & Data Results & Data Vital Signs (Past 12 Hours) Vital Signs Temp Pulse Pulse Resp BP Pulse Ox O2 Del Method 08/13/22 11:27 36.8 C 52 L 18 104/66 94 Room Air 08/13/22 07:45 Nasal Cannula 08/13/22 07:49 36.6 C 56 L 16 139/60 93 Room Air 08/13/22 07:30 56 L 08/13/22 04:33 36.8 C 58 L 18 128/74 96 Nasal Cannula O2 Flow Rate 08/13/22 11:27 08/13/22 07:45 1 08/13/22 07:49 08/13/22 07:30 08/13/22 04:33 1
[2022-08-13] MEDS: SIMVASTATIN 40 MG TAB PO SCH (20:44)
[2022-08-14] MEDS: PANTOprazole 40 MG TAB PO SCH (05:32)
[2022-08-14] MEDS: LEVOTHYROXINE SODIUM 125 MCG TABLET PO SCH (05:32)
--- NOTE | 2022-08-14 06:44 | Surgery Progress Note ---
Date of Service August 14, 2022 Assessment & Plan (1) Abdominal pain: Plan: This point the patient acute problem seems to be resolved with the exception of bowel movement but she frequently does not move her bowels on a regular basis She is tolerating a regular diet without any abdominal discomfort Surgery will sign off at this time please call us if there is any new issues arise Admission and Anticipated Discharge Date Admission Date: August 12, 2022 Subjective Overall she feels fine she tolerated regular diet yesterday passing flatus no bowel movement yet no abdominal discomfort She was unhappy that she had to stay another day but the medical service was concerned about her overall limited mobility Physical Exam Physical Exam: The abdomen is soft minimal voluntary guarding Results & Data Vital Signs (Past 12 Hours) Vital Signs Temp Pulse Pulse Resp BP Pulse Ox O2 Del Method 08/14/22 03:37 36.8 C 67 18 147/72 H 91 Room Air 08/13/22 23:42 124/75 08/13/22 23:30 36.7 C 64 20 146/75 H 93 Room Air 08/13/22 22:57 62 08/13/22 20:59 Room Air 08/13/22 19:49 36.6 C 58 L 20 129/77 93 Room Air
[2022-08-14 07:06] LABS: Hematocrit (blood only) 34.3 % (37.0-47.0); Hemoglobin 11.5 g/dl (12.0-16.0); Mean Corpuscular Hemoglobin 31.8 pg (25.0-34.0); Mean Corpuscular Hgb Conc 33.5 g/dL (32.0-36.0); Mean Corpuscular Volume 94.8 fL (80.0-100.0); Mean Platelet Volume 10.3 fL (9.4-12.4); Platelet Count 182 K/uL (130-400); RDW Coefficient of Variation 12.8 % (11.5-14.5); RDW Standard Deviation 44.8 fL (36.4-46.3); Red Blood Count 3.62 M/uL (4.20-5.40); White Blood Count 7.35 K/ul (4.8-10.8)
[2022-08-14 07:38] LABS: Albumin Globulin Ratio 1.3 (0.9-2); Albumin Level 3.3 gm/dl (3.4-5.0); BUN Creatinine Ratio 14.5 (10-20); Bilirubin,Total 0.4 mg/dl (0.2-1.0); Calcium 8.9 mg/dl (8.6-10.3); Est GFR (African American) 82.3 ml/min; Globulin 2.6 gm/dl (2.5-4.0); Potassium 3.3 mmol/L (3.5-5.1); Total Protein 5.9 gm/dl (6.0-8.3)
[2022-08-14] MEDS: HYDROCODONE/ACETAMOPHEN 5/325MG TAB PO PRN (07:43)
[2022-08-14] MEDS: cefTRIAXone SODIUM 2,000 MG in DEXTROSE 5% 50 ML IV SCH (07:47)
[2022-08-14] MEDS: POTASSIUM CHLORIDE / WTR 10 MEQ/100 ML PLCT IV SCH ×2 (08:42→11:00)
[2022-08-14] MEDS: ENOXAPARIN INJ 40 MG/0.4 ML SYR SQ SCH (08:54)
[2022-08-14] MEDS: GABAPENTIN 300 MG CAP PO SCH (08:55)
[2022-08-14] MEDS: FLUoxetine HCL 20 MG CAP PO SCH (08:56)
[2022-08-14] MEDS: buPROPion SR 150 MG TABCR PO SCH (08:56)
[2022-08-14] MEDS: CYANOCOBALAMIN (B-12) 500 MCG TABLET PO SCH (08:57)
[2022-08-14] MEDS: lisinopril 2.5 MG TAB PO SCH (08:57)
[2022-08-14] MEDS: METOPROLOL SUCC 25MG EXT REL TAB PO SCH (08:57)
[2022-08-14] MEDS: ASPIRIN 81 MG ECTAB PO SCH (08:57)
[2022-08-14] MEDS: ISOSORBIDE MONO EXTENDED REL 60 MG TABCR PO SCH (08:57)
--- NOTE | 2022-08-14 12:23 | Discharge Summary ---
Date of Service August 14, 2022 Admission HPI Per Admitting Provider History obtained from patient, family, and records. Medical history significant for CAD status post stent, AAA, valvular heart disease (moderate , mild AR/MR/TR), YUE on CPAP, hypertension, hyperlipidemia, hypothyroidism, anxiety/mood disorder, recurrent bowel obstruction, past tobacco abuse. Last confinement 2017 for renal colic. Yesterday patient experienced central abdominal pain with back radiation followed by nausea and emesis. Somewhat different from previous bouts of bowel obstruction. Headache following emesis episode. Good bowel movement. Patient denies chest pain, SOB. No fever, no chills. Patient brought to ER for evaluation. Highest SBP at the ER noted to be 160s. 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 She feels well. She has not had a bowel movement yet but is passing gas, tolerating all meals with no nausea/vomiting/abdominal pain Patient is requesting to be released from the hospital because of family issues. She has been moving around in her room with no difficulty and feels at her baseline functional status Respiratory Breathing comfortably on room air, no wheezing/rhonchi Cardiovascular Regular rate and rhythm, no murmurs/rubs Gastrointestinal (Abdomen) soft, non tender, non distended Musculoskeletal No edema Discharge Data Allergies Allergy/AdvReac Type Severity Reaction Status Date / Time NSAIDS (Non-Steroidal Allergy Unknown IBUPROFEN/S Verified 08/12/22 08:31 Anti-Inflamma ULINDAC promethazine AdvReac Unknown "MADE ME Verified 08/12/22 08:31 WANT TO JUMP OUT OF MY SKIN" Consultations 08/12/22 04:40 ED Decision to Admit Stat 08/12/22 08:14 Consult General Surgery Routine Ordered Studies 08/12/22 02:39 CT abd pelvis IV con only Stat Hospital Course (1) SBO (small bowel obstruction): CT A/P with IV contrast shows: IMPRESSION: 1. Small bowel obstruction with indeterminate zone of transition, likely within the right lower pelvis. 2. Diverticulosis with no signs of diverticulitis. 3. Distal abdominal aortic aneurysm measuring 4.4 x 4.6 cm in axial dimension by 5.7 cm in craniocaudal dimension. 4. Status post cholecystectomy with nonspecific biliary distention, clinical correlation recommended. 5. Left-sided simple renal cysts most compatible with benign process. No further follow-up imaging recommended. 6. Moderate hiatal hernia. She was seen by surgery and was placed on bowel rest. She did not require NG tube. She had no further nausea or vomiting while on bowel rest and her diet was advanced by surgery to low fiber on 08/13. She tolerated a low fiber diet and at the time of discharge she was passing gas but has not had a bowel movement. Since she was tolerating a diet, she was cleared for discharge by surgery. 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 Patient is already on a low fiber diet at baseline and was instructed to return to the ER if she again has abdominal pain, nausea/vomiting or if she develops fevers/chills. Plan Of note, seen on CT A/P with contrast here was an abdominal aortic aneurysm 4.4 x 4.6cm. She is being followed by her outpatient physicians for this and recently had an abdominal ultrasound 07/31/2022 and was told the size was unchanged. She reports being referred to see a vascular surgeon for this but has not yet seen one. She was encouraged to establish care with vascular surgery. Patient can continue her home medications. No changes were made here Total Time Total Time Spent Total Time Spent (In Minutes): 35 Discharge Plan Discharge Items Patient Disposition: Home - Self-Care Reason For Visit: HTN URG, SBO Discharge Diagnosis: SBO, resolved Hypokalemia Activity: Resume your previous activity Non-emergency contact: Primary Care Provider Call non-emergency contact if: you have any medication questions Follow-up/Referrals: Surya Fowler MD [Primary Care Provider] - Diet: Low Fiber Addtl Attending Provider Instructions: Please remain on a low fiber diet until your bowel movements are back to normal If you have abdominal pain, nausea/vomiting, fever, or chills. Please return to the ER Please get a referral to see Vascular surgery for abdominal aortic aneurysm Pending Studies at Discharge: No Stand-Alone Forms: My [facility] Medications and DC Order Prescriptions: Continued fluoxetine [Prozac] 40 mg capsule 40 mg PO QAM cyanocobalamin (vitamin B-12) [Vitamin B-12] 1,000 mcg Tablet 1,000 mcg PO Q OTHER DAY potassium chloride [Klor-Con 10] 10 mEq tablet extended release 10 meq PO DAILY clopidogrel [Plavix] 75 mg tablet 75 mg PO DAILY simvastatin [Zocor] 40 mg tablet 40 mg PO HS isosorbide mononitrate 60 mg tablet extended release 24 hr 60 mg PO QAM nitroglycerin [Nitrostat] 0.4 mg Tablet, Sublingual 0.4 mg sublingual UD MDD 3 doses PRN (Reason: Chest Pain) Rx Instructions: place 1 tab under tongue as needed for chest pain gabapentin [Neurontin] 300 mg capsule 300 mg PO TID omeprazole 20 mg capsule,delayed release(DR/EC) 20 mg PO DAILYBB furosemide [Lasix] 20 mg tablet 20 mg PO UD Rx Instructions: take 1 tablet every day + an additional 1 tablet 3-4 days per week metoprolol succinate [Toprol XL] 25 mg tablet extended release 24 hr 12.5 mg PO DAILY cholecalciferol (vitamin D3) [Vitamin D3] 1,000 unit Capsule 2,000 unit PO DAILY aspirin 81 mg Tablet,Delayed Release (Dr/Ec) 81 mg PO DAILY fluoxetine 20 mg Capsule 20 mg PO .EVERY AFTERNOON levothyroxine 125 mcg Tablet 125 mcg PO DAILYBB hydrocodone-acetaminophen 10-325 mg Tablet 1 tab PO Q6H MDD 3 per day PRN (Reason: Pain) lisinopril 5 mg Tablet 2.5 mg PO QAM diclofenac sodium 1 % Gel 2 g TOPICAL QID PRN (Reason: each hand arthritis pain) triamcinolone acetonide 0.1 % Lotion 1 applic TOPICAL BID Rx Instructions: apply to seborrheic dermatitis ketoconazole 2 % Shampoo 1 ea TOPICAL .EVERY 3 DAYS Rx Instructions: shampoo twice weekly for 4 weeks for seborrheic dermatitis bupropion HCl 150 mg tablet sustained-release 12 hr 150 mg PO BID Discharge Orders: Discharge Order (Routine); Ordered 08/14/22 Ordered By: Alex Mauricio/Other Patient Handouts: Small Bowel Obstruction, Low-Fiber Diet, Heart Failure Flare Up Signs Admission Data Admit Date/Time: 08/12/22 05:37 Attending Provider: Alex Schneider Admit Provider: Yoan Simmons Primary Care Provider: Surya Fowler Other Providers: Yoan Simmons ; Leonel Licea ; Tommy Kidd ; Evan Oliver ; Sadiq Pisano ; Favian Handy ; Ulisses Rose ; Vijaya Grajeda ; Doug Carrillo ; Bowen Cavazos ; Garrison Mares ; Victor Manuel Valladares ; Ashli Tran Other Interventions: Discharge Summary Assessment (RN) Last Done: 08/14/22 11:56
== END 2022-08-14 12:51 | disposition home or self-care (01) | DRG 389 ==
LOC: ED 01:59 → SUATTDRO 05:37 → 2N 05:37

== ENCOUNTER 2024-10-21 10:05 | Inpatient (IN) ==
--- NOTE | 2024-10-21 10:15 | Emergency Department Note ---
Impression & Plan Hypoxia, Diarrhea, Hypokalemia, Weakness ED Provider Note NAME: MICHEL RIVERA AGE: 89 SEX: F : 1935 ARRIVES VIA: Ambulance INFORMANT: Patient ED PROVIDER(S): Jake Mooney DO CHIEF COMPLAINT: Nausea and diarrhea HPI: Patient is an 89-year-old female who presents to the ER for diarrhea which has been present since Saturday. She admits to nausea and one episode of vomiting. She has had persistent diarrhea. She has been unable to eat or drink. She feels very weak and rundown. Denies any headache or change in vision. No chest pain or shortness of breath. No dysuria, urgency or frequency. No other exacerbating or remitting factors. ADDITIONAL HISTORY OBTAINED: Per HPI Chronic Medical/Social Conditions Affecting Care: Per HPI PAST MEDICAL HISTORY:See Below PAST SURGICAL HISTORY:See Below FAMILY HISTORY:See Below SOCIAL HISTORY:See Below HOME MEDICATIONS:See Below ALLERGIES:See Below VITALS:See Below PHYSICAL EXAMINATION: GENERAL: Sitting up in bed, alert, well appearing, well nourished, no distress, non-toxic EYE EXAM: normal conjunctiva. PERRL and EOM's grossly intact. OROPHARYNX: no exudate, no erythema, lips, buccal mucosa, and tongue normal and mucous membranes are moist NECK: supple, no nuchal rigidity, no adenopathy, non-tender LUNGS: Clear to auscultation. Normal chest wall mechanics HEART: no murmurs, S1 normal and S2 normal ABDOMEN: abdomen soft, non-tender, normo-active bowel sounds, no masses, no rebound or guarding. BACK: Back is symmetrical on inspection and there is no deformity, no midline tenderness, no CVA tenderness. SKIN: no rashes and no bruising UPPER EXTREMITIES: upper extremities are grossly normal. LOWER EXTREMITIES: No pitting edema. NEURO EXAM: Normal sensorium, cranial nerves II-XII grossly intact, normal speech, no gross weakness of arms, no gross weakness of legs. MEDICAL DECISION MAKING: Patient is an 89-year-old female who presents ER for the above-stated complaint. IV was established blood work was obtained. Labs showed no significant leukocytosis or anemia. BMP with mild hypokalemia 2.8. LFTs and bilirubin was unremarkable. Troponin was elevated at 15. Lipase was normal. Chest x-ray was clean. CT abdomen pelvis showed no acute pathology. Patient was given IV fluids. She was placed on 4 L nasal cannula as she was eventually found to be hypoxic to 85% on room air. Chest x-ray, EKG, and troponin were obtained following this as the patient was found to be hypoxic. No clear signs for the cause of hypoxia at this time. Patient did not receive any pain meds. Discussed case with the hospitalist for further evaluation management and treatment. Consults/Care Managements Discussions: Per [facility] Triage Nursing notes reviewed. Limited review of prior medical records performed Vital Signs: reviewed and remarkable for no significant abnormalities Differential diagnosis: Differential diagnoses includes but is not limited to gastritis, peptic ulcer disease, GERD, gallbladder disease, pancreatitis, small bowel obstruction, appendicitis, diverticulitis, hernia, urinary tract infection, torsion, perforation, trauma, infectious. ER treatment provided: See below Diagnostics interpreted by me include EKG and cardiac monitoring as listed below: -Cardiac Monitoring: An order was placed for continuous cardiac monitoring. The monitor shows a rate of 101 with sinus rhythm. -ECG: Sinus rhythm rate 75 Normal axis No PVCs Poor baseline ST depressions in the septal and anterior leads First-degree AV block QTc 509 -Laboratory studies:Interpreted by me as stated above in MDM and shown below. Imaging studies: Xrays: As interpreted by me: Portable AP upright 1 view the chest shows no focal M-Trate CTs show: CT abdomen pelvis showed no acute pathology Procedures:none Critical Care: I have personally spent 33 minutes of critical care time in the direct management of this patient. This includes bedside care, interpretation of diagnostic studies, and testing, discussion with consultants, patient, and family members, and other required patient management activities. This 33 minutes is in excess of all separately billable procedures. Past Med/Surg History Problem List (Updated 10/21/24 @ 14:01 by Jake Mooney DO) Weakness (Acute) Diarrhea (Acute) Hypoxia (Acute) Generalized weakness Hypokalemia (Acute) Diarrhea Abdominal aortic aneurysm (Acute) History of cholecystectomy Ureteral stone Abdominal pain (Acute) Bowel obstruction (Acute) Contusion of rib (Acute) Fall (Acute) Ureteral stone Wrist pain, right (Acute) Medical History (Updated 10/21/24 @ 14:01 by Jake Mooney DO) Anxiety and depression YUE (obstructive sleep apnea) Hypothyroidism GERD (gastroesophageal reflux disease) Chronic back pain Pulmonary hypertension Chronic heart failure with preserved ejection fraction (HFpEF) CAD (coronary artery disease) Dyslipidemia CKD (chronic kidney disease), stage III Abdominal pain SBO (small bowel obstruction) Small bowel obstruction Hypertension Social History Smoking Status: Former smoker Tobacco Type: Cigarettes Hx Alcohol Use: No Hx Substance Use: No Communication Ability: Effective Project Mgr Required: No Beliefs That Will Affect Care: None Current Living Situation: Alone Feels Safe at Home: Yes Assistive Devices: Walker Allergies Allergies Allergy/AdvReac Type Severity Reaction Status Date / Time NSAIDS (Non-Steroidal Allergy Unknown IBUPROFEN/S Verified 08/12/22 08:31 Anti-Inflamma ULINDAC promethazine AdvReac Unknown "MADE ME Verified 08/12/22 08:31 WANT TO JUMP OUT OF MY SKIN" Home Meds Home Medications Medication Instructions Recorded Confirmed cholecalciferol (vitamin D3) 25 2,000 unit PO DAILY 09/24/18 10/21/24 mcg (1,000 unit) capsule (Vitamin D3) clopidogrel 75 mg tablet (Plavix) 75 mg PO DAILY 09/24/18 10/21/24 cyanocobalamin (vitamin B-12) 1,000 mcg PO Q OTHER DAY 09/24/18 10/21/24 1,000 mcg tablet (Vitamin B-12) gabapentin 300 mg capsule 300 mg PO TID 09/24/18 10/21/24 (Neurontin) isosorbide mononitrate 60 mg 60 mg PO QAM 09/24/18 10/21/24 tablet,extended release 24 hr metoprolol succinate 25 mg 12.5 mg PO DAILY 09/24/18 10/21/24 tablet,extended release 24 hr (Toprol XL) nitroglycerin 0.4 mg sublingual 0.4 mg sublingual UD PRN Chest Pain 09/24/18 10/21/24 tablet (Nitrostat) omeprazole 20 mg capsule,delayed 20 mg PO DAILYBB 09/24/18 10/21/24 release potassium chloride 10 mEq 10 meq PO DAILY 09/24/18 10/21/24 tablet,extended release (Klor-Con) simvastatin 40 mg tablet (Zocor) 40 mg PO HS 09/24/18 10/21/24 aspirin 81 mg tablet,delayed 81 mg PO DAILY 08/12/22 10/21/24 release diclofenac sodium 1 % topical gel 2 g topical QID PRN each hand 08/12/22 10/21/24 arthritis pain hydrocodone 10 mg-acetaminophen 1 tab PO Q6H PRN Pain 08/12/22 10/21/24 325 mg tablet bupropion HCl 200 mg tablet,12 hr 200 mg PO DAILY 10/21/24 10/21/24 sustained-release fluoxetine 40 mg capsule 40 mg PO BID 10/21/24 10/21/24 furosemide 40 mg tablet 40 mg PO DAILY 10/21/24 10/21/24 levothyroxine 100 mcg tablet 100 mcg PO DAILY 10/21/24 10/21/24 lisinopril 5 mg tablet 2.5 mg PO DAILY 10/21/24 10/21/24 Results & Data (ED) Vital Signs Vital Signs - 24 hr 10/21/24 10:17 10/21/24 10:20 10/21/24 10:22 Temperature 37.2 C Temperature Source Oral Pulse Rate 64 66 Pulse Rate [Apical] Pulse Rate from SpO2 Sensor Respiratory Rate 22 Respiratory Effort / Characteristics Non-Labored Spontaneous Respiratory Depth Normal Respiratory Pattern Regular Blood Pressure 138/49 L 138/49 L Blood Pressure [Right Arm] Blood Pressure Mean 98 78 Blood Pressure Mean [Right Arm] Blood Pressure Position Lying Pulse Oximetry 95 Oxygen Delivery Method Room Air Sepsis Recent Fever Within 48 Hours No Sepsis New/Unexplained Change in Mental Status N/A Sepsis Action Taken by Nursing No Action Required Oxygen Flow Rate - Titration Pulse Oximetry Post Tiitration 10/21/24 10:22 10/21/24 10:24 10/21/24 10:30 Temperature Temperature Source Pulse Rate 60 60 Pulse Rate [Apical] Pulse Rate from SpO2 Sensor 60 Respiratory Rate 13 Respiratory Effort / Characteristics Respiratory Depth Respiratory Pattern Blood Pressure 143/62 H Blood Pressure [Right Arm] Blood Pressure Mean 99 Blood Pressure Mean [Right Arm] Blood Pressure Position Pulse Oximetry 96 97 Oxygen Delivery Method Room Air Sepsis Recent Fever Within 48 Hours Sepsis New/Unexplained Change in Mental Status Sepsis Action Taken by Nursing Oxygen Flow Rate - Titration Pulse Oximetry Post Tiitration 10/21/24 10:36 10/21/24 11:08 10/21/24 11:52 Temperature Temperature Source Pulse Rate 62 Pulse Rate [Apical] 71 Pulse Rate from SpO2 Sensor 63 Respiratory Rate 14 20 Respiratory Effort / Characteristics Respiratory Depth Respiratory Pattern Blood Pressure Blood Pressure [Right Arm] 157/84 H Blood Pressure Mean Blood Pressure Mean [Right Arm] 108 Blood Pressure Position Pulse Oximetry 91 92 85 L Oxygen Delivery Method Room Air Room Air Sepsis Recent Fever Within 48 Hours Sepsis New/Unexplained Change in Mental Status Sepsis Action Taken by Nursing Oxygen Flow Rate - Titration 3 Pulse Oximetry Post Tiitration 96 Laboratory Data 10/21/24 09:51 10/21/24 09:51 Lab Results 10/21/24 10/21/24 Range/Units 09:51 10:24 WBC 7.99 (4.8-10.8) K/ul RBC 3.78 L (4.20-5.40) M/uL Hgb 12.3 (12.0-16.0) g/dl POC Hgb 11.9 L (12.0-16.0) g/dl Hct 37.4 (37.0-47.0) % POC Hct 35 L (37-47) % MCV 98.9 (80.0-100.0) fL MCH 32.5 (25.0-34.0) pg MCHC 32.9 (32.0-36.0) g/dL RDW Std Deviation 49.1 H (36.4-46.3) fL RDW Coeff of Juan Ramon 13.3 (11.5-14.5) % Plt Count 188 (130-400) K/uL MPV 10.4 (9.4-12.4) fL Immature Gran % (Auto) 0.4 % Neut % (Auto) 66.3 % Lymph % (Auto) 18.8 % Lyman % (Auto) 11.6 % Eos % (Auto) 2.8 % Baso % (Auto) 0.1 % Neut # (Auto) 5.30 (1.40-6.50) K/uL Lymph # (Auto) 1.50 (1.20-3.40) K/uL Lyman # (Auto) 0.93 H (0.11-0.59) K/uL Eos # (Auto) 0.22 (0.00-0.50) K/uL Baso # (Auto) 0.01 (0.00-0.20) K/uL Immature Gran # (Auto) 0.03 (0.01-0.20) K/uL POC Sodium 143 (135-144) mmol/L Sodium 141 (136-145) mmol/L POC Potassium 3.0 L (3.3-5.0) mmol/L Potassium 2.9 L (3.5-5.1) mmol/L POC Chloride 105 (101-112) mmol/L Chloride 106 (98-107) mmol/L Carbon Dioxide 27 (21-32) mmol/L POC Total CO2 24 (24-31) mmol/L Anion Gap 8 (3-11) POC Anion Gap 18.0 (16-25) mmol/L POC BUN 13 (7-18) mg/dl BUN 14 (6-23) mg/dl Creatinine 0.87 (0.6-1.2) mg/dl POC Creatinine 1.0 (0.6-1.3) mg/dl Est Cr Clr Drug Dosing 51.0 ml/min eGFR 64.04 BUN/Creatinine Ratio 16.1 (10-20) Glucose 93 (70-99(Fasting)) mg/dl POC Glucose (other) 91 (70-99) mg/dl Calcium 9.6 (8.6-10.3) mg/dl POC Ioniz Calcium Carl 1.14 (1.12-1.32) mmol/l Magnesium 1.9 (1.7-2.4) mg/dl Total Bilirubin 0.5 (0.2-1.0) mg/dl AST 17 (13-39) U/L ALT 11 (7-52) U/L Alkaline Phosphatase 67 (34-104) U/L Troponin I High Sens 15.2 H (0-14) pg/ml Total Protein 6.8 (6.0-8.3) gm/dl Albumin 3.7 (3.4-5.0) gm/dl Globulin 3.1 (2.5-4.0) gm/dl Albumin/Globulin Ratio 1.2 (0.9-2) Lipase 38 (11-82) U/L Administered Medications Discontinued Medications Acetaminophen (Acetaminophen 325 Mg Tab) 650 mg PO NOW STA Stop: 10/21/24 12:34 Last Admin: 10/21/24 12:40 Dose: 650 mg Documented By: NRDaron Sodium Chloride (Nss) 1,000 mls @ 999 mls/hr IV .Q1H1M ONE Stop: 10/21/24 11:12 Last Infusion: 10/21/24 12:28 Dose: Infused Documented By: NRDaron Admin: 10/21/24 10:30 Dose: 999 mls/hr Documented By: MYRANDA Ioversol (Optiray 320 100ml) 93 ml IV ONCE ONE Stop: 10/21/24 11:07 Last Admin: 10/21/24 11:06 Dose: 93 ml Documented By: JERRI Ondansetron HCl (Ondansetron Inj 2 Mg/Ml 2 Ml Vial) 4 mg IV NOW STA Stop: 10/21/24 10:13 Last Admin: 10/21/24 10:30 Dose: 4 mg Documented By: MYRANDA Oxycodone HCl (Oxycodone Hcl Ir 5 Mg Tab (Immediate Release)) 5 mg PO NOW ONE Stop: 10/21/24 12:58 Last Admin: 10/21/24 13:24 Dose: 5 mg Documented By: YESI Potassium Chloride (Potassium Chloride Crtab 20 Meq Tabcr) 40 meq PO NOW STA Stop: 10/21/24 11:35 Last Admin: 10/21/24 12:44 Dose: 40 meq Documented By: ENEDINA Imaging Data Radiologist's Impression: Abdomen/Pelvis CT 10/21/24 10:11 CT SCAN OF THE ABDOMEN AND PELVIS WITH IV CONTRAST CLINICAL HISTORY: Abdominal pain and diarrhea. COMPARISON STUDY: 08/12/2022 TECHNIQUE: Following the IV administration of 93 cc of Optiray 320, CT scan of the abdomen and pelvis is performed from the lung bases to the proximal femora. Images are reviewed in the axial, sagittal, and coronal planes. IV contrast was administered without complication. A dose lowering technique was utilized adhering to the principles of ALARA. CT DOSE: 1300.15 mGy.cm FINDINGS: Lung bases: There are coronary artery calcifications. There is subpleural reticulation suggesting underlying interstitial lung disease. This appears slightly progressive. There is a hiatal hernia. Liver: There is mild intrahepatic biliary ductal prominence similar to the prior study. There is mild dilatation the common bile duct. This may be secondary to a prior cholecystectomy. No hepatic masses are visualized. Gallbladder: Surgically absent Spleen: No splenic masses identified Pancreas: No pancreatic masses identified. No ductal dilatation. 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 No solid renal masses are visualized. There is no significant hydronephrosis. Abdominal vasculature: There is a 4.8 cm infrarenal abdominal aortic aneurysm. Bowel: There are fluid-filled colonic and small bowel loops. There are no transition zones to indicate bowel obstruction. There are scattered colonic diverticula. There are no significant peridiverticular inflammatory changes. There are scattered small bowel and colonic air-fluid levels. The appendix was not visualized with certainty. There are no pericecal inflammatory changes. Peritoneum: There is no ascites. There is no free intraperitoneal air. Lymphadenopathy: There are no pathologically enlarged abdominal or pelvic lymph nodes. Pelvic viscera: The patient is status post a prior hysterectomy. No abnormal adnexal masses are visualized. Skeletal structures: Degenerative changes are present within the spine and hips. There are no suspicious lytic or blastic skeletal lesions. Intraspinal gas is likely secondary to degenerative spine disease. IMPRESSION: 1. No evidence of bowel obstruction. No evidence of free air 2. Multiple fluid-filled small bowel and colonic loops with air-fluid levels. The findings are consistent with a nonspecific enteritis. 3. Surgically absent gallbladder, and uterus. 4. Moderate hiatal hernia 5. Colonic diverticulosis without evidence of acute diverticulitis ACT 112: Negative or not required by law. Electronically signed by: Bo Leon M.D. 10/21/2024 11:31 AM Chest X-Ray 10/21/24 12:07 XR chest 1V portable CLINICAL HISTORY: vomiting COMPARISON STUDY: 01/01/2013 FINDINGS: The heart is mildly enlarged. There is aortic tortuosity/ectasia. There is elevation of the interstitium with suspected reticulation. The findings suggest underlying interstitial lung disease, although interstitial edema could appear similar. Basilar opacities are likely atelectatic. There is no lobar consolidation. There are no significant pleural effusions. IMPRESSION: 1. Mild cardiomegaly 2. Elevation of the interstitium. Pulmonary vascular congestion versus interstitial lung disease. 3. No evidence of lobar consolidation 5. Presumed mild basilar atelectatic change ACT 112: Negative or not required by law. Electronically signed by: Bo Leon M.D. 10/21/2024 12:50 PM Discharge Plan Visit Data Chief Complaint: Illness Stated Complaint: WEAKNESS, DEHYDRATION, DIARRHEA ED Provider: Jake Mooney Discharge Problem: Hypoxia, Diarrhea, Hypokalemia, Weakness Patient Disposition: Admitted As Inpatient Condition: Fair Discharge Instructions Interventions: ED Discharge Assessment Last Done: 10/21/24 13:49 Discharge Problem: Diarrhea Qualifiers: Diarrhea type: unspecified type Qualified Code(s): R19.7 - Diarrhea, unspecified
[2024-10-21] MEDS: SODIUM CHLORIDE 0.9% 1,000 ML IV ONE (10:30)
[2024-10-21] MEDS: ONDANSETRON INJ 2 MG/ML 2 ML VIAL IV STA (10:30)
[2024-10-21 10:39] LABS: Hematocrit (blood only) 37.4 % (37.0-47.0); Hemoglobin 12.3 g/dl (12.0-16.0); Immature Granulocytes # (auto) 0.03 K/uL (0.01-0.20); Immature Granulocytes % (auto) 0.4 %; Mean Corpuscular Hemoglobin 32.5 pg (25.0-34.0); Mean Corpuscular Volume 98.9 fL (80.0-100.0); Platelet Count 188 K/uL (130-400); RDW Standard Deviation 49.1 fL (36.4-46.3); Red Blood Count 3.78 M/uL (4.20-5.40); White Blood Count 7.99 K/ul (4.8-10.8)
[2024-10-21] MEDS: OPTIRAY 320 100ml IV ONE (11:06)
[2024-10-21 11:08] LABS: Alanine Aminotransferase 11.0 U/L (7-52); Albumin Globulin Ratio 1.2 (0.9-2); Alkaline Phosphatase 67.0 U/L (34-104); Anion Gap 8.0 (3-11); Bilirubin,Total 0.5 mg/dl (0.2-1.0); Blood Urea Nitrogen 14.0 mg/dl (6-23); Calcium 9.6 mg/dl (8.6-10.3); Carbon Dioxide 27.0 mmol/L (21-32); Chloride 106.0 mmol/L (98-107); Creatinine Clr Calc Pharmacy 51.0 ml/min; Globulin 3.1 gm/dl (2.5-4.0); Glucose 93.0 mg/dl (70-99(Fasting)); Lipase 38.0 U/L (11-82); Potassium 2.9 mmol/L (3.5-5.1); Sodium 141.0 mmol/L (136-145); Total Protein 6.8 gm/dl (6.0-8.3)
--- NOTE | 2024-10-21 11:32 | CT Scan Report ---
CT SCAN OF THE ABDOMEN AND PELVIS WITH IV CONTRAST CLINICAL HISTORY: Abdominal pain and diarrhea. COMPARISON STUDY: 08/12/2022 TECHNIQUE: Following the IV administration of 93 cc of Optiray 320, CT scan of the abdomen and pelvi s is performed from the lung bases to the proximal femora. Images are reviewed in the axial, sagittal , and coronal planes. IV contrast was administered without complication. A dose lowering technique wa s utilized adhering to the principles of ALARA. CT DOSE: 1300.15 mGy.cm FINDINGS: Lung bases: There are coronary artery calcifications. There is subpleural reticulation suggesting und erlying interstitial lung disease. This appears slightly progressive. There is a hiatal hernia. Liver: There is mild intrahepatic biliary ductal prominence similar to the prior study. There is mild dilatation the common bile duct. This may be secondary to a prior cholecystectomy. No hepatic masses are visualized. Gallbladder: Surgically absent Spleen: No splenic masses identified Pancreas: No pancreatic masses identified. No ductal dilatation. 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 No solid renal masses are visualized. There is no significant hydronephrosis. Abdominal vasculature: There is a 4.8 cm infrarenal abdominal aortic aneurysm. Bowel: There are fluid-filled colonic and small bowel loops. There are no transition zones to indicat e bowel obstruction. There are scattered colonic diverticula. There are no significant peridiverticul ar inflammatory changes. There are scattered small bowel and colonic air-fluid levels. The appendix w as not visualized with certainty. There are no pericecal inflammatory changes. Peritoneum: There is n o ascites. There is no free intraperitoneal air. Lymphadenopathy: There are no pathologically enlarged abdominal or pelvic lymph nodes. Pelvic viscera: The patient is status post a prior hysterectomy. No abnormal adnexal masses are visu alized. Skeletal structures: Degenerative changes are present within the spine and hips. There are no suspici ous lytic or blastic skeletal lesions. Intraspinal gas is likely secondary to degenerative spine dise ase. IMPRESSION: 1. No evidence of bowel obstruction. No evidence of free air 2. Multiple fluid-filled small bowel and colonic loops with air-fluid levels. The findings are consis tent with a nonspecific enteritis. 3. Surgically absent gallbladder, and uterus. 4. Moderate hiatal hernia 5. Colonic diverticulosis without evidence of acute diverticulitis ACT 112: Negative or not required by law. Electronically signed by: Bo Leon M.D. 10/21/2024 11:31 AM
--- NOTE | 2024-10-21 12:27 | History & Physical Report ---
Date of Service October 21, 2024 Assessment & Plan (1) Diarrhea: Plan: Patient is a 89-year-old female with PMH HTN, dyslipidemia, CAD s/p RCA stent in 2006, pulmonary hypertension, HFpEF, CKD III, carotid stenosis, hypothyroidism, GERD, depression, anxiety, obesity, YUE, chronic back pain, h/o SBO 2022 treated conservatively presented to ER with c/o diarrhea x 2 days. In ER afebrile, P: 66, R: 22, BP 138/49, 95% on room air In ER given IV Zofran, 1L NSS, Tylenol 650 mg p.o. No leukocytosis CT abd/pelvis: 1. No evidence of bowel obstruction. No evidence of free air 2. Multiple fluid-filled small bowel and colonic loops with air-fluid levels. The findings are consistent with a nonspecific enteritis. 3. Surgically absent gallbladder, and uterus. 4. Moderate hiatal hernia 5. Colonic diverticulosis without evidence of acute diverticulitis Stool culture, C-diff pending Start fiber supplement for now pending stool studies. If negative plan to add agent such as Imodium/Lomotil/Questran IVF Clear liquid diet for now CBC, BMP in am #Abnormal UA UA: +nitrite, 1+leuk esterase, 4+bacteria. Patient soiled with loose stool multiple times in ER Patient denies dysuria, hematuria. Reports chronic urinary frequency Urine culture pending. Will hold on antibiotics at this time pending culture #Abnormal EKG Denies CP, SOB Troponin: 15 EKG: Sinus rhythm, rate 75, T wave inversion and ST depression anterior leads new since EKG 02/26/20 Trend troponin If troponin uptrending consider echo, cardiology consult (2) Hypokalemia: Plan: K: 2.9. Magnesium: 1.9 In ER given 40 mEq KCl p.o. Replace and montior #Hypoxia CXR: Mild cardiomegaly. Elevation of the interstitium. Pulmonary vascular congestion versus interstitial lung disease.No evidence of lobar consolidation Presumed mild basilar atelectatic change Reported episode of hypoxia at 85% on RA in ER. Placed on 3L O2 with sat 98%. Upon my exam patient is not on any oxygen (Oxygen tubing not hooked up to oxygen supply) and O2 sat 98% on RA. Question if patient was sleeping at time of hypoxia, h/o YUE and uses CPAP. Will continue to monitor (3) Generalized weakness: Plan: Baseline ambulatory dysfunction and chronic imbalance with frequent falls reported. Uses walker at baseline Reported increased generalized weakness since diarrhea Treatment as above Fall precautions PT/OT eval (4) CKD (chronic kidney disease), stage III: Plan: Cr: 0.87. Baseline Cr: 1.0-1.2 Monitor renal functions (5) Hypertension: (6) Dyslipidemia: (7) CAD (coronary artery disease): Plan: S/P RCA stent 2006 Continue lisinopril with holding parameters Continue aspirin, Plavix, isosorbide, simvastatin (8) Chronic heart failure with preserved ejection fraction (HFpEF): (9) Pulmonary hypertension: Plan: 10/15/2024 echo: There is a small sized basal inferior and posterior wall motion abnormality with hypokinesis to akinesis of the segments. The qualitative LV e jection Fraction = 55%. Moderate aortic valve stenosis is present. Moderate aortic valve regurgitation is present. The left atrium is mildly enlarged. Compared to the images obtained at the time of the previous study dated 09/25/2023, the regional wall motion abnormalities are relatively unchanged. The degree of aortic valve stenosis in the aortic valve regurgitation is unchanged. Moderate mitral regurgitation was observed at the time of the previous study which was not observed on the present study likely due to differences in imaging technique. Currently on dry side Hold Lasix for now and closely monitor (10) Chronic back pain: Plan: On chronic hydrocodone acetaminophen, gabapentin (11) Abdominal aortic aneurysm: Plan: CT abdomen pelvis: There is a 4.8 cm infrarenal abdominal aortic aneurysm. Was 4.[address] scan 08/12/2022 Follows with [facility] vascular, Dr. Alatorre. Has upcoming follow-up appointment scheduled this fall (12) GERD (gastroesophageal reflux disease): Plan: Continue PPI (13) Hypothyroidism: Plan: TSH in a.m. Continue levothyroxine (14) YUE (obstructive sleep apnea): Plan: CPAP at bedtime (15) Anxiety and depression: Plan: Continue bupropion, fluoxetine Patient tearful and anxious talking about of 2 daughters and sister in the past 2 years DVT Prophylaxis SQ Heparin Admit med tele DNR/DNI as per discussion with pt Follows with Dr Fowler for routine care Pt was seen and care coordinated with Dr Hernandez. See addendum I spent a total of 70 minutes reviewing notes, outpatient records, labs, medication, coordinating, documenting and providing care for this patient excluding time spent in the performance of separately billed services and excluding time spent by another provider/QHP. History of Present Illness Chief Complaint: diarrhea Primary Care Provider: Surya Fowler MD Patient is a 89-year-old female with PMH HTN, dyslipidemia, CAD s/p RCA stent in 2006, pulmonary hypertension, HFpEF, CKD III, carotid stenosis, hypothyroidism, GERD, depression, anxiety, obesity, YUE, chronic back pain, h/o SBO 2022 treated conservatively presented to ER with c/o diarrhea x 2 days. Patients states for past 2 days with diffuse diarrhea occurring every hour. States nausea and dry heaves. One episode "white foam" emesis. Reports upper abdominal discomfort. Decreased oral intake. Denies ill contacts, recent travels. Lives home alone. Reports walks with walker at baseline. Reports chronic balance issues and frequent falls. States chronic mid and lower back pain and chronic right leg pain. States takes hydrocodone three times a day. She hasn't taken medications for over 24 hours secondary to nausea. Is requesting pain medication for her back pain. States back pain feels "how it normally does". Reports feels more weak than usual past day which she relates to diarrhea and poor oral intake. Very anxious. Reports lost two daughters in past year and one last year on day so the recent Labor day holiday was extra hard. Also reports of sister a year ago. She is reports is having a hard time mourning the loss of her family. Reports chronic vision changes and feels this is baseline. Nonproductive cough "just started". Denies SOB, rhinorrhea. Reports chronic BLE edema with right leg worse than left. Feels edema "how normally is". Denies recent antibiotic use. Denies history C-diff. Denies fever/chills, diaphoresis, melena, hematochezia, NIXON, dizziness, syncope, neck pain, CP, SOB, orthopnea, palpitations, hematemesis, sore throat, otalgia, rhinorrhea, paresthesias, weakness, extremity weakness, rashes, urinary symptoms. Allergies Allergy/AdvReac Type Severity Reaction Status Date / Time NSAIDS (Non-Steroidal Allergy Unknown IBUPROFEN/S Verified 08/12/22 08:31 Anti-Inflamma ULINDAC promethazine AdvReac Unknown "MADE ME Verified 08/12/22 08:31 WANT TO JUMP OUT OF MY SKIN" Home Medications Medication Instructions Recorded Confirmed Type cholecalciferol (vitamin D3) 25 2,000 unit PO DAILY 09/24/18 10/21/24 History mcg (1,000 unit) capsule (Vitamin D3) clopidogrel 75 mg tablet (Plavix) 75 mg PO DAILY 09/24/18 10/21/24 History cyanocobalamin (vitamin B-12) 1,000 mcg PO Q OTHER DAY 09/24/18 10/21/24 History 1,000 mcg tablet (Vitamin B-12) gabapentin 300 mg capsule 300 mg PO TID 09/24/18 10/21/24 History (Neurontin) isosorbide mononitrate 60 mg 60 mg PO QAM 09/24/18 10/21/24 History tablet,extended release 24 hr metoprolol succinate 25 mg 12.5 mg PO DAILY 09/24/18 10/21/24 History tablet,extended release 24 hr (Toprol XL) nitroglycerin 0.4 mg sublingual 0.4 mg sublingual UD PRN Chest Pain 09/24/18 10/21/24 History tablet (Nitrostat) omeprazole 20 mg capsule,delayed 20 mg PO DAILYBB 09/24/18 10/21/24 History release potassium chloride 10 mEq 10 meq PO DAILY 09/24/18 10/21/24 History tablet,extended release (Klor-Con) simvastatin 40 mg tablet (Zocor) 40 mg PO HS 09/24/18 10/21/24 History aspirin 81 mg tablet,delayed 81 mg PO DAILY 08/12/22 10/21/24 History release diclofenac sodium 1 % topical gel 2 g topical QID PRN each hand 08/12/22 10/21/24 History arthritis pain hydrocodone 10 mg-acetaminophen 1 tab PO Q6H PRN Pain 08/12/22 10/21/24 History 325 mg tablet bupropion HCl 200 mg tablet,12 hr 200 mg PO DAILY 10/21/24 10/21/24 History sustained-release fluoxetine 40 mg capsule 40 mg PO BID 10/21/24 10/21/24 History furosemide 40 mg tablet 40 mg PO DAILY 10/21/24 10/21/24 History levothyroxine 100 mcg tablet 100 mcg PO DAILY 10/21/24 10/21/24 History lisinopril 5 mg tablet 2.5 mg PO DAILY 10/21/24 10/21/24 History Past Med/Surg History Problem List Weakness (Acute) Diarrhea (Acute) Hypoxia (Acute) Generalized weakness Hypokalemia (Acute) Diarrhea Abdominal aortic aneurysm (Acute) History of cholecystectomy Ureteral stone Abdominal pain (Acute) Bowel obstruction (Acute) Contusion of rib (Acute) Fall (Acute) Ureteral stone Wrist pain, right (Acute) Medical History Anxiety and depression YUE (obstructive sleep apnea) Hypothyroidism GERD (gastroesophageal reflux disease) Chronic back pain Pulmonary hypertension Chronic heart failure with preserved ejection fraction (HFpEF) CAD (coronary artery disease) Dyslipidemia CKD (chronic kidney disease), stage III Abdominal pain SBO (small bowel obstruction) Small bowel obstruction Hypertension Social History Smoking Status: Former smoker Tobacco Type: Cigarettes Second Hand Exposure: No; Do You Dip or Chew Tobacco: No; Tobacco Cessation Education Requested by Patient: No Hx Alcohol Use: No Hx Substance Use: No Preferred Language: Slovak Communication Ability: Effective Workers Compensation Claims Examiner Required: No Beliefs That Will Affect Care: None Current Living Situation: Alone Other Information That Helps Us Care for You: No Feels Safe at Home: Yes Safety Concerns: Feels Safe At This Time Assistive Devices: Walker Review of Systems Review of Systems: All systems reviewed & are unremarkable except as noted in HPI & below Physical Exam Physical Exam: General: +anxious and tearful, obese elderly femal Head: normocephalic, atraumatic Eyes: PERRL, EOM's intact, conjunctiva non-injected, anicteric ENT: normal inspection external ears, nose, mucous membranes mildly dry Neck: supple, trachea midline Lungs: clear, no respiratory distress, no wheezing/rhonchi/rales CV: RRR, trace pretibial edema Abd: normal BS, soft, +tenderness palpation epigastric and across upper abdomen without rebound or guarding Ext: no cyanosis, no calf tenderness Neuro: Alert, oriented x 3, no focal deficits noted, + anxious and tearful affect Skin: warm, dry, +scattered ecchymosis to extremities and chest Results & Data Results & Data Vital Signs (Past 12 Hours) Vital Signs Temp Pulse Pulse Resp BP BP Pulse Ox 10/21/24 11:52 85 L 10/21/24 11:08 71 20 157/84 H 92 10/21/24 10:36 62 14 91 10/21/24 10:30 143/62 H 10/21/24 10:24 60 13 97 10/21/24 10:22 60 96 10/21/24 10:22 37.2 C 66 22 138/49 L 95 10/21/24 10:20 138/49 L 10/21/24 10:17 64 O2 Del Method 10/21/24 11:52 Room Air 10/21/24 11:08 Room Air 10/21/24 10:36 10/21/24 10:30 10/21/24 10:24 10/21/24 10:22 Room Air 10/21/24 10:22 Room Air 10/21/24 10:20 10/21/24 10:17 Laboratory Results Short CBC 10/21/24 Range/Units 09:51 WBC 7.99 (4.8-10.8) K/ul Hgb 12.3 (12.0-16.0) g/dl Hct 37.4 (37.0-47.0) % Plt Count 188 (130-400) K/uL BMP 10/21/24 09:51 Sodium 141 Potassium 2.9 L Chloride 106 Carbon Dioxide 27 BUN 14 Creatinine 0.87 Glucose 93 Calcium 9.6 Liver Function 10/21/24 Range/Units 09:51 Total Bilirubin 0.5 (0.2-1.0) mg/dl AST 17 (13-39) U/L ALT 11 (7-52) U/L Alkaline Phosphatase 67 (34-104) U/L Albumin 3.7 (3.4-5.0) gm/dl Diagnostic Findings Abdomen/Pelvis CT 10/21/24 10:11 CT SCAN OF THE ABDOMEN AND PELVIS WITH IV CONTRAST CLINICAL HISTORY: Abdominal pain and diarrhea. COMPARISON STUDY: 08/12/2022 TECHNIQUE: Following the IV administration of 93 cc of Optiray 320, CT scan of the abdomen and pelvis is performed from the lung bases to the proximal femora. Images are reviewed in the axial, sagittal, and coronal planes. IV contrast was administered without complication. A dose lowering technique was utilized adhering to the principles of ALARA. CT DOSE: 1300.15 mGy.cm FINDINGS: Lung bases: There are coronary artery calcifications. There is subpleural reticulation suggesting underlying interstitial lung disease. This appears slightly progressive. There is a hiatal hernia. Liver: There is mild intrahepatic biliary ductal prominence similar to the prior study. There is mild dilatation the common bile duct. This may be secondary to a prior cholecystectomy. No hepatic masses are visualized. Gallbladder: Surgically absent Spleen: No splenic masses identified Pancreas: No pancreatic masses identified. No ductal dilatation. 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 No solid renal masses are visualized. There is no significant hydronephrosis. Abdominal vasculature: There is a 4.8 cm infrarenal abdominal aortic aneurysm. Bowel: There are fluid-filled colonic and small bowel loops. There are no transition zones to indicate bowel obstruction. There are scattered colonic diverticula. There are no significant peridiverticular inflammatory changes. There are scattered small bowel and colonic air-fluid levels. The appendix was not visualized with certainty. There are no pericecal inflammatory changes. Peritoneum: There is no ascites. There is no free intraperitoneal air. Lymphadenopathy: There are no pathologically enlarged abdominal or pelvic lymph nodes. Pelvic viscera: The patient is status post a prior hysterectomy. No abnormal adnexal masses are visualized. Skeletal structures: Degenerative changes are present within the spine and hips. There are no suspicious lytic or blastic skeletal lesions. Intraspinal gas is likely secondary to degenerative spine disease. IMPRESSION: 1. No evidence of bowel obstruction. No evidence of free air 2. Multiple fluid-filled small bowel and colonic loops with air-fluid levels. The findings are consistent with a nonspecific enteritis. 3. Surgically absent gallbladder, and uterus. 4. Moderate hiatal hernia 5. Colonic diverticulosis without evidence of acute diverticulitis ACT 112: Negative or not required by law. Electronically signed by: Bo Leon M.D. 10/21/2024 11:31 AM Chest X-Ray 10/21/24 12:07 XR chest 1V portable CLINICAL HISTORY: vomiting COMPARISON STUDY: 01/01/2013 FINDINGS: The heart is mildly enlarged. There is aortic tortuosity/ectasia. There is elevation of the interstitium with suspected reticulation. The findings suggest underlying interstitial lung disease, although interstitial edema could appear similar. Basilar opacities are likely atelectatic. There is no lobar consolidation. There are no significant pleural effusions. IMPRESSION: 1. Mild cardiomegaly 2. Elevation of the interstitium. Pulmonary vascular congestion versus interstitial lung disease. 3. No evidence of lobar consolidation 5. Presumed mild basilar atelectatic change ACT 112: Negative or not required by law. Electronically signed by: Bo Leon M.D. 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 Patient reports having different than usual diet over Saturday night [cooked at her place by her grandson] and Saturday morning [at her dtr's place] but denies such illness in any other family members. Patient reports some upper belly discomfor t today but denies any lower abdominal pain, no tenderness noted on abdominal exam. Patient denies fever/pain or burning while passing urine. Denies sore throat/cough/chest pain/shortness of breath. Pt reports nausea and dry heaves. Labs reviewed, plan to replete potassium total of 100 mEq today. Will get PCR stool. Psyllium fiber. IV fluid. CTAP w/ concern for enteritis. On exam: on room air, no abdominal tenderness, trace RLE pitting edema. Rest of the examination as above. I have seen and examined the patient and have discussed the case with the provider above. I agree with the assessment and plan as stated. Total time spent independently: 20 minutes. (11) Abdominal aortic aneurysm Abdominal aorta location: unspecified Presence of rupture: without rupture Qualified Code(s): I71.40 - Abdominal aortic aneurysm, without rupture, unspecified
[2024-10-21] MEDS: ACETAMINOPHEN 325 MG TAB PO STA (12:40)
[2024-10-21] MEDS: POTASSIUM CHLORIDE CRTAB 20 MEQ TABCR PO STA ×2 (12:44→18:41)
[2024-10-21 12:52] LABS: Magnesium 1.9 mg/dl (1.7-2.4)
--- NOTE | 2024-10-21 12:52 | XRay Report ---
XR chest 1V portable CLINICAL HISTORY: vomiting COMPARISON STUDY: 01/01/2013 FINDINGS: The heart is mildly enlarged. There is aortic tortuosity/ectasia. There is elevation of the interstitium with suspected reticulation. The findings suggest underlying interstitial lung disease, although interstitial edema could appear similar. Basilar opacities are likely atelectatic. There is no lobar consolidation. There are no significant pleural effusions. IMPRESSION: 1. Mild cardiomegaly 2. Elevation of the interstitium. Pulmonary vascular congestion versus interstitial lung disease. 3. No evidence of lobar consolidation 5. Presumed mild basilar atelectatic change ACT 112: Negative or not required by law. Electronically signed by: Bo Leon M.D. 10/21/2024 12:50 PM
[2024-10-21] MEDS ORDERED: POLYETHYLENE (MIRALAX) 17 GM PACK PO PRN (13:38)
[2024-10-21] MEDS: POTASSIUM CHLORIDE CRTAB 20 MEQ TABCR PO ONE (14:14)
[2024-10-21] MEDS: CLOPIDOGREL BISULFATE 75 MG TAB PO SCH (14:14)
[2024-10-21] MEDS: ASPIRIN 81 MG ECTAB PO SCH (14:14)
[2024-10-21] MEDS: ISOSORBIDE MONO EXTENDED REL 60 MG TABCR PO SCH (14:50)
[2024-10-21] MEDS: METOPROLOL SUCC 25MG EXT REL TAB PO SCH (14:50)
[2024-10-21] MEDS: NSS + 20MEQ KCL 20 MEQ/1,000 ML BAG IV SCH (14:50)
[2024-10-21] MEDS: GABAPENTIN 300 MG CAP PO SCH (14:51)
[2024-10-21 15:13] LABS: Appearance Urine Clear (Clear); Bacteria Urine Automated 4+ (None Seen); Cast Urine Automated 0-2 /lpf (0-2); Epithelial Cell Urine Auto 0-2 /hpf (0-2); Glucose Urine UA Negative (Negative); RBC Urine Automated 0-2 /hpf (0-2); WBC Urine Automated 0-5 /hpf (0-5)
--- NOTE | 2024-10-21 16:18 | Electrocardiogram Report ---
Test Reason : Blood Pressure : */* mmHG Vent. Rate : 75 BPM Atrial Rate : 75 BPM P-R Int : 176 ms QRS Dur : 102 ms QT Int : 456 ms P-R-T Axes : 69 -34 66 degrees QTcB Int : 509 ms Normal sinus rhythm Left axis deviation Nonspecific ST and T wave abnormality Abnormal ECG When compared with ECG of 26-Feb-2020 18:53, ST now depressed in Anterior leads T wave inversion now evident in Anterior leads QT has lengthened Confirmed by Dale Young ([id number]) on 10/21/2024 4:18:25 PM Referred By: REFERRED SELF Confirmed By: Dale Young
[2024-10-21] MEDS: PSYLLIUM HUSK 4GM PACKET PO SCH (18:34)
[2024-10-21] MEDS: ACETAMINOPHEN 325 MG TAB PO PRN (18:41)
[2024-10-21] MEDS: SODIUM CHLORIDE 0.9% 1,000 ML IV SCH (18:45)
[2024-10-21 19:14] LABS: Cdiff Toxin B Gene (2yr or >) Negative Cdiff Gene (Neg)
[2024-10-21 19:50] LABS: Adenovirus F 40/41 PCR Not Detected (NotDetected); Campylobacter PCR Not Detected (NotDetected); Enteroaggregative E.coli(EAEC) Not Detected (NotDetected); Shiga-like Toxin E.coli (STEC) Not Detected (NotDetected); Vibrio species PCR Not Detected (NotDetected)
[2024-10-21] MEDS: SIMVASTATIN 40 MG TAB PO SCH (21:19)
[2024-10-21] MEDS: HEPARIN SOD 5,000 UNIT/0.5 ML VIAL SQ SCH (21:19)
[2024-10-21] MEDS ORDERED: CHOLESTYRAMINE LIGHT 4 GM PKT PO SCH (22:00)
[2024-10-22] MEDS: ACETAMINOPHEN 1,000 MG/100 ML VIAL IV STA (03:11)
[2024-10-22] MEDS: LEVOTHYROXINE SODIUM 100 MCG TABLET PO SCH (06:12)
[2024-10-22 07:08] LABS: Hematocrit (blood only) 33.3 % (37.0-47.0); Hemoglobin 10.5 g/dl (12.0-16.0); Mean Corpuscular Hemoglobin 31.7 pg (25.0-34.0); Mean Corpuscular Volume 100.6 fL (80.0-100.0); Platelet Count 161 K/uL (130-400); RDW Standard Deviation 50.5 fL (36.4-46.3); Red Blood Count 3.31 M/uL (4.20-5.40); White Blood Count 5.90 K/ul (4.8-10.8)
[2024-10-22 07:38] LABS: Anion Gap 6.0 (3-11); Blood Urea Nitrogen 8.0 mg/dl (6-23); Calcium 8.5 mg/dl (8.6-10.3); Carbon Dioxide 23.0 mmol/L (21-32); Chloride 113.0 mmol/L (98-107); Cholesterol 87.0 mg/dl (0-200); Creatinine Clr Calc Pharmacy 54.6 ml/min; Glucose 88.0 mg/dl (70-99(Fasting)); HDL Cholesterol 36.0 mg/dl; Magnesium 1.9 mg/dl (1.7-2.4); Potassium 3.4 mmol/L (3.5-5.1); Sodium 142.0 mmol/L (136-145); Triglycerides 97.0 mg/dl (0-150)
[2024-10-22 07:53] LABS: Thyroid Stimulating Hormone 1.82 uIu/ml (0.300-4.500)
[2024-10-22] MEDS: CHOLECALCIFEROL 25 MCG (1000 UNITS) TAB PO SCH (08:11)
[2024-10-22] MEDS: POTASSIUM CHLORIDE 10 MEQ TABCR PO ONE (08:12)
[2024-10-22] MEDS ORDERED: POTASSIUM CHLORIDE 10 MEQ TABCR PO SCH (09:00)
[2024-10-22] MEDS ORDERED: CHOLECALCIFEROL 25 MCG (1000 UNITS) TAB PO SCH (09:00)
--- NOTE | 2024-10-22 09:14 | Cardiology Consultation ---
Date of Consultation October 22, 2024 Assessment & Plan (1) Diarrhea: (2) Gastroenteritis: (3) Hypokalemia: (4) Abnormal EKG: (5) CAD (coronary artery disease): (6) Aortic stenosis: (7) NSTEMI (non-ST elevated myocardial infarction): Plan Patient is an 89-year-old female admitted with several days of diarrhea diagnosed with gastroenteritis and low potassium. Incidentally found to have mild nonspecific T wave abnormality in anterior leads and mildly elevated troponin peaking at 124. Patient with underlying moderate aortic stenosis and coronary artery disease. She had no cardiac symptoms of angina upon admission nor overnight. No evidence of acute ACS. Potassium was significantly low on admission due to diarrheal illness She had recent echo as an outpatient with preserved LVEF with Small basal inferior and posterior wall motion abnormality, stable from past echoes. She also had moderate aortic stenosis and moderate AI which was also stable. Gastroenteritis - treatment per hospitalist Abnormal EKG - likely due to low potassium and underlying CAD -no anginal complaints Elevated troponin/NSTEMI -type II event due to acute illness -echo pending -med management recommended -she is asymptomatic from cardiac standpoint History of CAD -continue ASA, plavix, statin, metoprolol, lisinopril, isosorbide. Aortic stenosis -moderate per outpatient echo September 2024 Continue all home cardiac medications. Replace potassium and recheck. Echo results pending No further cardiac testing warranted at this time. Case discussed with Dr. Oliver I spent a total of 60 minutes on the date of service in preparation, delivery, and documentation of the care provided to this patient, excluding any time spent in the performance of separately billed services. Sandra Avila PA-C Department of Cardiology, [facility] This chart was completed in part utilizing Speech Voice Recognition Software. Grammatical errors, random word insertions, pronoun errors, and incomplete sentences are an occasional consequence of this system due to software limitat ions, ambient noise, and hardware issues. Any formal questions or concerns about the content, text, or information contained within the body of this dictation should be directly addressed to the provider for clarification. Supervising Physician Co-Signing Physician Notes I have personally performed a history and physical examination on the patient. I have reviewed the advance practitioner's documentation, and I agree with, and take responsibility for the plan of care. 89-year-old female admitted 6 GI upset and diarrheal illness. Cardiac consultation requested due to elevated troponin and ECG changes. Significant hypokalemia noted on admission. Patient denies chest discomfort or anginal symptoms. Repeat echocardiogram demonstrating preserved LV systolic function with inferior posterior wall motion abnormality unchanged from echocardiogram dated 10/15/2024. Moderate aortic valve stenosis noted. I suspect mildly elevated high-sensitivity troponin secondary to acute illness. No evidence of plaque rupture event. Continue current cardiovascular medications including aspirin, clopidogrel, statin, lisinopril, metoprolol, and isosorbide. No further inpatient cardiac testing recommended at this time. Cardiology will sign off. Please call with additional concerns/questions. I spent a total of 35 minutes on the date of service in preparation, delivery, and documentation of the care provided to this patient, excluding any time spent in the performance of separately billed services. Uriel Oliver DO, [facility] History of Present Illness Reason for Consultation: Elevated troponin; Abnormal EKG Requesting Physician: [facility] Hospitalist Attending Physician: Dr. Oliver History of Present Illness Patient is a 89 year old female who presented to [facility] with complaints of diarrhea and abdominal pain. CT of the abdomen consistent with probable gastro enteritis. Potassium was low at 2.9. Incidentally noted to have an abnormal EKG on arrival - NSR with non specific T wave abnormality in anterior leads. No chest pain or dyspnea reported. HS troponin was drawn and followed - 15 - 124- 93- 52 Patient remained asymptomatic during this time. Patient had recent echo as an outpatient. Follows with [facility] Echo on 10/15/24 revealed: There is a small sized basal inferior and posterior wall motion abnormality with hypokinesis to akinesis of the segments. The qualitative LV ejection Fraction = 55%. Moderate aortic valve stenosis is present. Moderate aortic valve regurgitation is present. The left atrium is mildly enlarged. Compared to the images obtained at the time of the previous study dated 09/25/2023, the regional wall motion abnormalities are relatively unchanged. The degree of aortic valve stenosis in the aortic valve regurgitation is unchanged. Moderate mitral regurgitation was observed at the time of the previous study which was not observed on the present study likely due to differences in imaging technique At time of consult, patient resting in bed. Ongoing abdominal pain and diarrhea noted. No cardiac concerns or complaints. No chest pain or SOB. No orthopnea, PND or edema. History includes: 1. ASCVD -Status post June 2006 acute inferior posterior [place] with presenting symptoms including burning chest pressure with radiation down the left arm. -Diagnostic cardiac catheterization in 2006 demonstrated an occlusion of a large circumflex obtuse marginal status post PTCA and bare metal stenting. Coronary anatomy at that time was notable for residual disease including a 30% left main stenosis, 40-50% RCA stenosis, and a 50% mid LAD stenosis. -Exertional nonradiating retrosternal chest heaviness/tightness associated with shortness of breath lead to Lexiscan nuclear stress testing and ultimately diagnostic cardiac catheterization on July 30, 2016 which demonstrated at most a 40% distal left main stenosis, 40% mid LAD stenosis, high-grade diagonal branch stenosis that was not amendable to stenting, small RCA with [id number] disease. Overall, results were similar to the prior catheterization 10 years ago. LVEDP was elevated for which she began the previously advised diuretics with significant improvement 2. Aortic stenosis 3. Obesity 4. Pulmonary hypertension 5. Sleep apnea treated with CPAP 6. Abdominal aortic aneurysm 7. Central retinal artery occlusion, February 2020. 8. Hypertension 9. Hyperlipidemia 10. Hypothyroidism 11. Chronic depression 12. GI history including past H. pylori infection and hiatal hernia 13. GERD 14. Hiatal hernia. 15. Hospitalized at [facility] in July 2022 with a small bowel obstruction. Allergies Allergy/AdvReac Type Severity Reaction Status Date / Time NSAIDS (Non-Steroidal Allergy Unknown IBUPROFEN/S Verified 08/12/22 08:31 Anti-Inflamma ULINDAC promethazine AdvReac Unknown "MADE ME Verified 08/12/22 08:31 WANT TO JUMP OUT OF MY SKIN" Home Medications Medication Instructions Recorded Confirmed Type cholecalciferol (vitamin D3) 25 2,000 unit PO DAILY 09/24/18 10/21/24 History mcg (1,000 unit) capsule (Vitamin D3) clopidogrel 75 mg tablet (Plavix) 75 mg PO DAILY 09/24/18 10/21/24 History cyanocobalamin (vitamin B-12) 1,000 mcg PO Q OTHER DAY 09/24/18 10/21/24 History 1,000 mcg tablet (Vitamin B-12) gabapentin 300 mg capsule 300 mg PO TID 09/24/18 10/21/24 History (Neurontin) isosorbide mononitrate 60 mg 60 mg PO QAM 09/24/18 10/21/24 History tablet,extended release 24 hr metoprolol succinate 25 mg 12.5 mg PO DAILY 09/24/18 10/21/24 History tablet,extended release 24 hr (Toprol XL) nitroglycerin 0.4 mg sublingual 0.4 mg sublingual UD PRN Chest Pain 09/24/18 10/21/24 History tablet (Nitrostat) omeprazole 20 mg capsule,delayed 20 mg PO DAILYBB 09/24/18 10/21/24 History release potassium chloride 10 mEq 10 meq PO DAILY 09/24/18 10/21/24 History tablet,extended release (Klor-Con) simvastatin 40 mg tablet (Zocor) 40 mg PO HS 09/24/18 10/21/24 History aspirin 81 mg tablet,delayed 81 mg PO DAILY 08/12/22 10/21/24 History release diclofenac sodium 1 % topical gel 2 g topical QID PRN each hand 08/12/2205/12 History arthritis pain hydrocodone 10 mg-acetaminophen 1 tab PO Q6H PRN Pain 08/12/22 10/21/24 History 325 mg tablet bupropion HCl 200 mg tablet,12 hr 200 mg PO DAILY 10/21/24 10/21/24 History sustained-release fluoxetine 40 mg capsule 40 mg PO BID 10/21/24 10/21/24 History furosemide 40 mg tablet 40 mg PO DAILY 10/21/24 10/21/24 History levothyroxine 100 mcg tablet 100 mcg PO DAILY 10/21/24 10/21/24 History lisinopril 5 mg tablet 2.5 mg PO DAILY 10/21/24 10/21/24 History Patient History Medical History Anxiety and depression YUE (obstructive sleep apnea) Hypothyroidism GERD (gastroesophageal reflux disease) Chronic back pain Pulmonary hypertension Chronic heart failure with preserved ejection fraction (HFpEF) CAD (coronary artery disease) Dyslipidemia CKD (chronic kidney disease), stage III Abdominal pain SBO (small bowel obstruction) Small bowel obstruction Hypertension Social History Smoking Status: Former smoker Tobacco Type: Cigarettes Second Hand Exposure: No; Do You Dip or Chew Tobacco: No; Hx Alcohol Use: No Hx Substance Use: No Preferred Language: Greenlandic Communication Ability: Effective Printing Grey Cloth Tender Required: No Beliefs That Will Affect Care: None Current Living Situation: Alone Feels Safe at Home: Yes Assistive Devices: Walker Review of Systems Review of Systems: All systems reviewed & are unremarkable except as noted in HPI & below Physical Exam Constitutional: WD/WN, vitals as above Respiratory: normal respiratory effort, lungs clear to auscultation Cardiovascular: Rate/Rhythm: regular rate and regular rhythm Heart Sounds: + murmur (III/ systolic murmur) Gastrointestinal (Abdomen): Inspection/Auscultation: abdomen normal to inspection Percussion/Palpation: + abdomen tender Neurologic: PERRL, EOMI, accommodation nl, no face palsy, no dysarthria Results & Data Vital Signs (Past 12 Hours) Vital Signs Temp Pulse Pulse Resp BP Pulse Ox O2 Del Method 10/22/24 08:03 36.7 C 54 L 18 123/71 97 Nasal Cannula 10/22/24 06:02 56 L 10/22/24 02:36 37.0 C 75 18 132/70 97 Nasal Cannula 10/21/24 22:25 36.6 C 74 18 119/74 99 Nasal Cannula 10/21/24 21:54 60 O2 Flow Rate 10/22/24 08:03 2 10/22/24 06:02 10/22/24 02:36 2 10/21/24 22:25 2 10/21/24 21:54 Laboratory Results Cardiac Enzymes 10/21/24 10/21/24 10/21/24 Range/Units 09:51 18:12 23:14 AST 17 (13-39) U/L Troponin I High Sens 15.2 H 124.7 H* D 93.9 H* D (0-14) pg/ml 10/22/24 Range/Units 06:52 AST (13-39) U/L Troponin I High Sens 52.2 H* D (0-14) pg/ml Lipids 10/22/24 Range/Units 06:52 Triglycerides 97 (0-150) mg/dl Cholesterol 87 (0-200) mg/dl HDL Cholesterol 36 mg/dl Cholesterol/HDL Ratio 2.4 (0-5) CBC 10/21/24 10/22/24 Range/Units 09:51 06:52 WBC 7.99 5.90 (4.8-10.8) K/ul RBC 3.78 L 3.31 L (4.20-5.40) M/uL Hgb 12.3 10.5 L (12.0-16.0) g/dl Hct 37.4 33.3 L (37.0-47.0) % Plt Count 188 161 (130-400) K/uL Neut # (Auto) 5.30 (1.40-6.50) K/uL Lymph # (Auto) 1.50 (1.20-3.40) K/uL Ransom # (Auto) 0.93 H (0.11-0.59) K/uL Eos # (Auto) 0.22 (0.00-0.50) K/uL Baso # (Auto) 0.01 (0.00-0.20) K/uL Comprehensive Metabolic Panel 10/21/24 10/22/24 Range/Units 09:51 06:52 Sodium 141 142 (136-145) mmol/L Potassium 2.9 L 3.4 L (3.5-5.1) mmol/L Chloride 106 113 H (98-107) mmol/L Carbon Dioxide 27 23 (21-32) mmol/L BUN 14 8 (6-23) mg/dl Creatinine 0.87 0.81 (0.6-1.2) mg/dl Glucose 93 88 (70-99(Fasting)) mg/dl Calcium 9.6 8.5 L (8.6-10.3) mg/dl AST 17 (13-39) U/L ALT 11 (7-52) U/L Alkaline Phosphatase 67 (34-104) U/L Total Protein 6.8 (6.0-8.3) gm/dl Albumin 3.7 (3.4-5.0) gm/dl Intake and Output 10/21/24 10/22/24 10/22/24 22:59 06:59 14:59 Intake Total 625.333 / 2225.333 200 / 2225.333 Output Total 2 / 2 Balance 623.333 / 2223.333 200 / 2223.333 Intake: IV 385.333 / 1885.333 100 / 1885.333 Acetaminophen 1,000 mg In 100 100 / 100 ml @ 400 mls/hr IV NOW STA Rx#: [id number] Nss + 20Meq KCl 20 meq In 1,000 385.333 / 385.333 ml @ 80 mls/hr IV .[id number] ROSE Rx#:[id number] Oral 240 / 340 100 / 340 Output: # Bowel Movements 2 / 2 Other: # Unmeasured Voids 1 1 Weight 98 kg Weight Measurement Method Built in [facility] Diagnostic Findings Telemetry reviewed: NSR with occ PVC. no concerning arrhythmias EKG reviewed from 10/21/24 at 12:51: NSR LAD T wave abnormality/inversion in anterior leads T wave abnormality is new compared to EKG in 2023 EKG reviewed from 10/22/24 at 6:38 AM NSR LAD T wave abnormality in anterolateral lead No change from previous Abdomen/Pelvis CT 10/21/24 10:11 CT SCAN OF THE ABDOMEN AND PELVIS WITH IV CONTRAST CLINICAL HISTORY: Abdominal pain and diarrhea. COMPARISON STUDY: 08/12/2022 TECHNIQUE: Following the IV administration of 93 cc of Optiray 320, CT scan of the abdomen and pelvis is performed from the lung bases to the proximal femora. Images are reviewed in the axial, sagittal, and coronal planes. IV contrast was administered without complication. A dose lowering technique was utilized adhering to the principles of ALARA. CT DOSE: 1300.15 mGy.cm FINDINGS: Lung bases: There are coronary artery calcifications. There is subpleural reticulation suggesting underlying interstitial lung disease. This appears slightly progressive. There is a hiatal hernia. Liver: There is mild intrahepatic biliary ductal prominence similar to the prior study. There is mild dilatation the common bile duct. This may be secondary to a prior cholecystectomy. No hepatic masses are visualized. Gallbladder: Surgically absent Spleen: No splenic masses identified Pancreas: No pancreatic masses identified. No ductal dilatation. 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 No solid renal masses are visualized. There is no significant hydronephrosis. Abdominal vasculature: There is a 4.8 cm infrarenal abdominal aortic aneurysm. Bowel: There are fluid-filled colonic and small bowel loops. There are no transition zones to indicate bowel obstruction. There are scattered colonic diverticula. There are no significant peridiverticular inflammatory changes. There are scattered small bowel and colonic air-fluid levels. The appendix was not visualized with certainty. There are no pericecal inflammatory changes. Peritoneum: There is no ascites. There is no free intraperitoneal air. Lymphadenopathy: There are no pathologically enlarged abdominal or pelvic lymph nodes. Pelvic viscera: The patient is status post a prior hysterectomy. No abnormal adnexal masses are visualized. Skeletal structures: Degenerative changes are present within the spine and hips. There are no suspicious lytic or blastic skeletal lesions. Intraspinal gas is likely secondary to degenerative spine disease. IMPRESSION: 1. No evidence of bowel obstruction. No evidence of free air 2. Multiple fluid-filled small bowel and colonic loops with air-fluid levels. The findings are consistent with a nonspecific enteritis. 3. Surgically absent gallbladder, and uterus. 4. Moderate hiatal hernia 5. Colonic diverticulosis without evidence of acute diverticulitis ACT 112: Negative or not required by law. Electronically signed by: Bo Leon M.D. 10/21/2024 11:31 AM Chest X-Ray 10/21/24 12:07 XR chest 1V portable CLINICAL HISTORY: vomiting COMPARISON STUDY: 01/01/2013 FINDINGS: The heart is mildly enlarged. There is aortic tortuosity/ectasia. There is elevation of the interstitium with suspected reticulation. The findings suggest underlying interstitial lung disease, although interstitial edema could appear similar. Basilar opacities are likely atelectatic. There is no lobar consolidation. There are no significant pleural effusions. IMPRESSION: 1. Mild cardiomegaly 2. Elevation of the interstitium. Pulmonary vascular congestion versus interstitial lung disease. 3. No evidence of lobar consolidation 5. Presumed mild basilar atelectatic change ACT 112: Negative or not required by law. Electronically signed by: Bo Leon M.D. 10/21/2024 12:50 PM Medications Administered Current Inpatient Medications Acetaminophen (Acetaminophen 325 Mg Tab) 650 mg PO Q4H PRN PRN Reason: Pain or Fever Stop: 11/20/24 13:37 Last Admin: 10/21/24 18:41 Dose: 650 mg Hydrocodone Bitart/Acetaminophen (Hydrocodone/Acetaminophen 10/325 Tab) 1 tab PO Q8H PRN PRN Reason: Mod-Sev Pain (Scale 4-10) Stop: 11/04/24 13:45 Last Admin: 10/22/24 06:12 Dose: 1 tab Aspirin (Aspirin 81 Mg Ectab) 81 mg PO DAILY [facility] Stop: 11/20/24 13:59 Last Admin: 10/22/24 08:44 Dose: 81 mg Bupropion HCl (Bupropion Sr 100 Mg Tabcr) 200 mg PO DAILY ROSE Stop: 11/20/24 13:59 Last Admin: 10/22/24 08:11 Dose: 200 mg Clopidogrel Bisulfate (Clopidogrel Bisulfate 75 Mg Tab) 75 mg PO DAILY ROSE Stop: 11/20/24 13:59 Last Admin: 10/22/24 08:11 Dose: 75 mg Cyanocobalamin (Cyanocobalamin (B-12) 500 Mcg Tablet) 1,000 mcg PO Q2D ROSE Stop: 11/22/24 08:59 Fluoxetine HCl (Fluoxetine Hcl 20 Mg Cap) 40 mg PO BID ROSE Stop: 11/20/24 15:59 Last Admin: 10/22/24 08:11 Dose: 40 mg Gabapentin (Gabapentin 300 Mg Cap) 300 mg PO TID ROSE Stop: 11/20/24 13:59 Last Admin: 10/22/24 08:12 Dose: 300 mg Heparin Sodium (Porcine) (Heparin Sod 5,000 Unit/0.5 Ml Vial) 5,000 units SQ Q12 ROSE Stop: 11/20/24 20:59 Last Admin: 10/22/24 08:16 Dose: 5,000 units Isosorbide Mononitrate (Isosorbide Ransom Extended Rel 60 Mg Tabcr) 60 mg PO QAM ROSE Stop: 11/20/24 13:59 Last Admin: 10/21/24 14:50 Dose: 60 mg Levothyroxine Sodium (Levothyroxine Sodium 100 Mcg Tablet) 100 mcg PO DAILYBB ROSE Stop: 11/21/24 06:29 Last Admin: 10/22/24 06:12 Dose: 100 mcg Lisinopril (Lisinopril 2.5 Mg Tab) 2.5 mg PO DAILY ROSE Stop: 11/21/24 08:59 Last Admin: 10/22/24 08:44 Dose: 2.5 mg Loperamide HCl (Loperamide Hcl 2 Mg Cap) 2 mg PO Q4H PRN PRN Reason: Diarrhea Stop: 11/21/24 07:55 Metoprolol Succinate (Metoprolol Succ 25mg Ext Rel Tab) 12.5 mg PO DAILY ROSE Stop: 11/20/24 13:59 Last Admin: 10/22/24 08:16 Dose: Not Given Ondansetron HCl (Ondansetron Inj 2 Mg/Ml 2 Ml Vial) 4 mg IV Q6H PRN PRN Reason: Nausea Stop: 11/20/24 13:37 Pantoprazole Sodium (Pantoprazole 40 Mg Tab) 40 mg PO DAILY ROSE Stop: 11/21/24 08:59 Last Admin: 10/22/24 08:12 Dose: 40 mg Polyethylene Glycol (Polyethylene (Miralax) 17 Gm Pack) 17 gm PO DAILY PRN PRN Reason: Constipation Stop: 11/20/24 13:37 Psyllium Hydrophilic Mucilloid (Psyllium Husk 4gm Packet) 4 gm PO QAM ROSE Stop: 11/20/24 16:44 Last Admin: 10/22/24 08:16 Dose: 4 gm Simvastatin (Simvastatin 40 Mg Tab) 40 mg PO HS ROSE Stop: 11/20/24 20:59 Last Admin: 10/21/24 21:19 Dose: 40 mg Vitamin D (Cholecalciferol 25 Mcg (1000 Units) Tab) 25 mcg PO DAILY ROSE Stop: 11/21/24 08:59 Last Admin: 10/22/24 08:11 Dose: 25 mcg PG Care Time/CCT Total # of Minutes Spent Total Time Spent with Patient: Total time spent is greater than 50% in coordination of care (as documented) at patient's floor/unit and/or counseling patient: 60 minutes Coding Level of Care Code 98205 INT INP/OBS CARE 3/75MIN Diagnoses Diarrhea R19.7 Diarrhea type: unspecified type Gastroenteritis K52.9 Hypokalemia E87.6 Abnormal EKG R94.31 Coronary artery disease involving [place] coronary artery of [place] heart without angina pectoris I25.10 Associated angina: without angina Coronary Disease-Associated Artery/Lesion type: [place] artery [place] vs. transplanted heart: [place] heart Nonrheumatic aortic valve stenosis I35.0 Cardiac valve disease etiology: nonrheumatic NSTEMI (non-ST elevated myocardial infarction) I21.4 (1) Diarrhea Diarrhea type: unspecified type Qualified Code(s): R19.7 - Diarrhea, unspecified (5) CAD (coronary artery disease) Associated angina: without angina Coronary Disease-Associated Artery/Lesion type: [place] artery [place] vs. transplanted heart: [place] heart Qualified Code(s): I25.10 - Atherosclerotic heart disease of [place] coronary artery without angina pectoris (6) Aortic stenosis Cardiac valve disease etiology: nonrheumatic Qualified Code(s): I35.0 - Nonrheumatic aortic (valve) stenosis
[2024-10-22] MEDS: LOPERAMIDE HCL 2 MG CAP PO PRN (11:58)
[2024-10-22] MEDS: ONDANSETRON INJ 2 MG/ML 2 ML VIAL IV PRN (12:01)
--- NOTE | 2024-10-22 12:31 | Electrocardiogram Report ---
Test Reason : Blood Pressure : */* mmHG Vent. Rate : 60 BPM Atrial Rate : 60 BPM P-R Int : 178 ms QRS Dur : 108 ms QT Int : 476 ms P-R-T Axes : 54 -31 71 degrees QTcB Int : 476 ms Normal sinus rhythm Left axis deviation T wave abnormality, consider anterior ischemia Prolonged QT Abnormal ECG When compared with ECG of 21-Oct-2024 12:51, No significant change was found Confirmed by Dale Young ([id number]) on 10/22/2024 12:30:29 PM Referred By: REFERRED SELF Confirmed By: Dale Young
--- NOTE | 2024-10-22 15:39 | CT Scan Report ---
CT chest diagnostic wo con CT DOSE: 914.42 mGy.cm CLINICAL HISTORY: 89 years-old Female with ? interstitial lung disease, Hypoxia. Chronic shortness o f breath with hypoxia TECHNIQUE: Multiaxial CT images of the chest were performed without contrast. A dose lowering techni que was utilized adhering to the principles of ALARA. COMPARISON: Chest radiograph 10/21/2024, CTA chest 06/18/2009 FINDINGS: No thyroid nodule. Borderline enlarged mediastinal lymph nodes measure up to 10 mm, new fro m prior. Mild cardiomegaly with decreased attenuation of the cardiac blood pool compatible with anemi a. Extensive coronary artery calcifications. Atherosclerosis with mild fusiform dilation of the ascen ding thoracic aorta, 4.1 x 4.1. This previously measured 3.7 cm. The main pulmonary artery measures u p to 4 cm transversely. Mild right hemidiaphragmatic elevation. Trace right pleural effusion. There is intralobular septal th ickening with progressive reticular interstitial opacities of the lungs, right greater than left comp ared to the 2010 study. No significant bronchiectasis or honeycombing. No pneumothorax, suspicious pu lmonary nodule or lobar airspace consolidation typical for pneumonia. Central airways appear patent. Moderate-sized hiatal hernia. Ill-defined hyperdensity in the superior pole collecting system right k [place] may represent contrast versus calculus. Unremarkable soft tissues. No acute fracture. IMPRESSION: 1. Cardiomegaly with evidence of pulmonary arterial hypertension. 2. Progressively worsened chronic interstitial lung disease compared to the chest CT from 2009. There may also be a component of interstitial pulmonary edema. 3. Trace right pleural effusion. 4. Moderate sized hiatal hernia. 5. Mild nonspecific mediastinal lymphadenopathy. 6. 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 ACT 112: Negative or not required by law. Electronically signed by: Mathew Dolan M.D. 10/22/2024 3:37 PM
--- NOTE | 2024-10-22 15:57 | Hospitalist Progress Note ---
Date of Service October 22, 2024 Assessment & Plan (1) Diarrhea: Plan: Patient is a 89-year-old female with PMH HTN, dyslipidemia, CAD s/p RCA stent in 2006, pulmonary hypertension, HFpEF, CKD III, carotid stenosis, hypothyroidism, GERD, depression, anxiety, obesity, YUE, chronic back pain, h/o SBO 2022 treated conservatively presented to ER with c/o diarrhea x 2 days. Suspected viral gastroenteritis --CT ABD:No evidence of bowel obstruction. No evidence of free air. Multiple fluid-filled small bowel and colonic loops with air-fluid levels. The findings are consistent with a nonspecific enteritis. Surgically absent gallbladder, and uterus. Moderate hiatal hernia Colonic diverticulosis without evidence of acute diverticulitis -- Stool PCR, stool for C. difficile negative Received IV fluids Continue Metamucil Imodium as needed Advance to full liquid diet today Asymptomatic bacteriuria UA: +nitrite, 1+leuk esterase, 4+bacteria. Patient soiled with loose stool multiple times in ER Patient denies dysuria, hematuria. Reports chronic urinary frequency Urine culture not contributory Will hold off on antibiotics for now Hypokalemia Secondary to GI losses Replete and monitor Abnormal EKG Type II VT H/O CAD Moderate aortic stenosis --ECHO: Pending --Troponin trended down --continue ASA, plavix, statin, metoprolol, lisinopril, isosorbide Appreciate cardiology input (2) Hypokalemia: Plan: Hypoxia Interstitial lung disease Pulmonary hypertension --Chest CT:Cardiomegaly with evidence of pulmonary arterial hypertension. Progressively worsened chronic interstitial lung disease compared to the chest CT from 2009. There may also be a component of interstitial pulmonary edema. Trace right pleural effusion. Moderate sized hiatal hernia. Mild nonspecific mediastinal lymphadenopathy. 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 -- Needs follow-up with pulmonology as outpatient Will obtain nocturnal oximetry study May need 2 step prior to discharge CXR: Mild cardiomegaly. Elevation of the interstitium. Pulmonary vascular congestion versus interstitial lung disease.No evidence of lobar consolidation Presumed mild basilar atelectatic change Reported episode of hypoxia at 85% on RA in ER. Placed on 3L O2 with sat 98%. Upon my exam patient is not on any oxygen (Oxygen tubing not hooked up to oxygen supply) and O2 sat 98% on RA. Question if patient was sleeping at time of hypoxia, h/o YUE and uses CPAP. Will continue to monitor (3) Generalized weakness: Plan: Baseline ambulatory dysfunction and chronic imbalance with frequent falls reported. Uses walker at baseline Reported increased generalized weakness since diarrhea Treatment as above Fall precautions PT/OT eval (4) CKD (chronic kidney disease), stage III: Plan: Creatinine at baseline Monitor renal function (5) Hypertension: Plan: Blood pressure stable Continue current medication (6) Dyslipidemia: Plan: Continue simvastatin (7) CAD (coronary artery disease): Plan: S/P RCA stent 2006 Continue aspirin, Plavix, isosorbide, simvastatin (8) Chronic heart failure with preserved ejection fraction (HFpEF): Plan: Resume home diuretics as able Monitor volume status Continue current medications (9) Pulmonary hypertension: Plan: Echo pending Home diuretics on hold (10) Chronic back pain: Plan: On chronic hydrocodone acetaminophen, gabapentin (11) Abdominal aortic aneurysm: Plan: CT abdomen pelvis: There is a 4.8 cm infrarenal abdominal aortic aneurysm. Was 4.[address] scan 08/12/2022 Follows with [facility] vascular, Dr. Alatorre. Has upcoming follow-up appointment scheduled this fall (12) GERD (gastroesophageal reflux disease): Plan: Continue PPI (13) Hypothyroidism: Plan: Normal TSH Continue levothyroxine (14) YUE (obstructive sleep apnea): Plan: CPAP at bedtime Nocturnal oximetry study pending (15) Anxiety and depression: Plan: Continue bupropion, fluoxetine Patient tearful and anxious talking about of 2 daughters and sister in the past 2 years Counseled Consider psychiatry evaluation if needed DVT Prophylaxis SQ Heparin CODE STATUS DNR/DNI Disposition PT OT prior to discharge Admission and Anticipated Discharge Date Admission Date: October 21, 2024 Subjective Patient is seen and examined at bedside States having nausea but no vomiting today Diarrhea improving Denies any chest pain, dyspnea, abdominal pain, dysuria No other complaints today Review of Systems Review of Systems: All systems reviewed & are unremarkable except as noted in Subjective Physical Exam Physical Exam: Physical Exam: Vitals signs as noted above General Appearance:Obese, no apparent distress Head: normocephalic, Atraumatic Eyes: normal inspection, EOMI Neck: supple, Trachea midline Respiratory/Chest: Normal breath sounds, + basal crackles, No accessory muscle use Cardiovascular: S1, S2, +murmur Abdomen/GI:Soft, Non tender, Bowel sounds present Extremities/Musculoskeletal:normal inspection, + LE edema Neurologic/Psych:AAOX3, grossly no focal neurological deficits Skin: normal color, warm Results & Data Results & Data Vital Signs (Past 12 Hours) Vital Signs Temp Pulse Pulse Resp BP Pulse Ox O2 Del Method 10/22/24 15:12 36.5 C 60 16 125/71 90 Room Air 10/22/24 08:03 36.7 C 54 L 18 123/71 97 Nasal Cannula 10/22/24 06:02 56 L O2 Flow Rate 10/22/24 15:12 10/22/24 08:03 2 10/22/24 06:02 Laboratory Results Short CBC 10/22/24 Range/Units 06:52 WBC 5.90 (4.8-10.8) K/ul Hgb 10.5 L (12.0-16.0) g/dl Hct 33.3 L (37.0-47.0) % Plt Count 161 (130-400) K/uL BMP 10/22/24 06:52 Sodium 142 Potassium 3.4 L Chloride 113 H Carbon Dioxide 23 BUN 8 Creatinine 0.81 Glucose 88 Calcium 8.5 L (7) CAD (coronary artery disease) Coronary Disease-Associated Artery/Lesion type: [place] artery [place] vs. transplanted heart: [place] heart Associated angina: without angina Qualified Code(s): I25.10 - Atherosclerotic heart disease of [place] coronary artery without angina pectoris (11) Abdominal aortic aneurysm Abdominal aorta location: unspecified Presence of rupture: without rupture Qualified Code(s): I71.40 - Abdominal aortic aneurysm, without rupture, unspecified
[2024-10-23 04:56] LABS: Hematocrit (blood only) 35.6 % (37.0-47.0); Hemoglobin 11.5 g/dl (12.0-16.0); Mean Corpuscular Hemoglobin 32.2 pg (25.0-34.0); Mean Corpuscular Volume 99.7 fL (80.0-100.0); Platelet Count 168 K/uL (130-400); RDW Standard Deviation 49.8 fL (36.4-46.3); Red Blood Count 3.57 M/uL (4.20-5.40); White Blood Count 6.54 K/ul (4.8-10.8)
[2024-10-23 05:11] LABS: Anion Gap 6.0 (3-11); Blood Urea Nitrogen 6.0 mg/dl (6-23); Calcium 8.7 mg/dl (8.6-10.3); Carbon Dioxide 22.0 mmol/L (21-32); Chloride 113.0 mmol/L (98-107); Creatinine Clr Calc Pharmacy 57.4 ml/min; Glucose 82.0 mg/dl (70-99(Fasting)); Magnesium 1.9 mg/dl (1.7-2.4); Potassium 3.6 mmol/L (3.5-5.1); Sodium 141.0 mmol/L (136-145)
[2024-10-23] MEDS: CYANOCOBALAMIN (B-12) 500 MCG TABLET PO SCH (07:59)
--- NOTE | 2024-10-23 14:39 | Hospitalist Progress Note ---
Date of Service October 23, 2024 Assessment & Plan (1) Diarrhea: Plan: Patient is a 89-year-old female with PMH HTN, dyslipidemia, CAD s/p RCA stent in 2006, pulmonary hypertension, HFpEF, CKD III, carotid stenosis, hypothyroidism, GERD, depression, anxiety, obesity, YEU, chronic back pain, h/o SBO 2022 treated conservatively presented to ER with c/o diarrhea x 2 days. Suspected viral gastroenteritis --CT ABD:No evidence of bowel obstruction. No evidence of free air. Multiple fluid-filled small bowel and colonic loops with air-fluid levels. The findings are consistent with a nonspecific enteritis. Surgically absent gallbladder, and uterus. Moderate hiatal hernia Colonic diverticulosis without evidence of acute diverticulitis -- Stool PCR, stool for C. difficile negative Received IV fluids Continue Metamucil Imodium as needed Advance to regular diet today Clinically improving Asymptomatic bacteriuria UA: +nitrite, 1+leuk esterase, 4+bacteria. Patient soiled with loose stool multiple times in ER Patient denies dysuria, hematuria. Reports chronic urinary frequency Urine culture not contributory Will hold off on antibiotics for now Nocturnal hypoxia Reviewed nocturnal oximetry study Continue supplemental oxygen at bedtime Hypokalemia Secondary to GI losses Replete and monitor Abnormal EKG Type II ND H/O CAD Moderate aortic stenosis --ECHO: Left ventricle systolic function is normal. EF 55 to 60%. Moderate valvular aortic stenosis. Mild aortic regurgitation. Mild mitral regurgitation. No change when compared to prior study. --Troponin trended down --continue ASA, plavix, statin, metoprolol, lisinopril, isosorbide Appreciate cardiology input (2) Hypokalemia: Plan: Hypoxia Interstitial lung disease Pulmonary hypertension --Chest CT:Cardiomegaly with evidence of pulmonary arterial hypertension. Progressively worsened chronic interstitial lung disease compared to the chest CT from 2009. There may also be a component of interstitial pulmonary edema. Trace right pleural effusion. Moderate sized hiatal hernia. Mild nonspecific mediastinal lymphadenopathy. 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 -- Needs follow-up with pulmonology as outpatient May need 2 step prior to discharge (3) Generalized weakness: Plan: Baseline ambulatory dysfunction and chronic imbalance with frequent falls reported. Uses walker at baseline Reported increased generalized weakness since diarrhea Treatment as above Fall precautions PT/OT eval: Recommends rehab (4) CKD (chronic kidney disease), stage III: Plan: Creatinine at baseline Monitor renal function (5) Hypertension: Plan: Blood pressure stable Continue current medication (6) Dyslipidemia: Plan: Continue simvastatin (7) CAD (coronary artery disease): Plan: S/P RCA stent 2006 Continue aspirin, Plavix, isosorbide, simvastatin (8) Chronic heart failure with preserved ejection fraction (HFpEF): Plan: Resume home diuretics as able Monitor volume status Continue current medications (9) Pulmonary hypertension: Plan: Echo pending Home diuretics on hold (10) Chronic back pain: Plan: On chronic hydrocodone acetaminophen, gabapentin (11) Abdominal aortic aneurysm: Plan: CT abdomen pelvis: There is a 4.8 cm infrarenal abdominal aortic aneurysm. Was 4.[address] scan 08/12/2022 Follows with [facility] vascular, Dr. Alatorre. Has upcoming follow-up appointment scheduled this fall (12) GERD (gastroesophageal reflux disease): Plan: Continue PPI (13) Hypothyroidism: Plan: Normal TSH Continue levothyroxine (14) YUE (obstructive sleep apnea): Plan: CPAP at bedtime (15) Anxiety and depression: Plan: Continue bupropion, fluoxetine Patient tearful and anxious talking about of 2 daughters and sister in the past 2 years Counseled Consider psychiatry evaluation if needed DVT Prophylaxis SQ Heparin CODE STATUS DNR/DNI Disposition Rehab when medically stable Admission and Anticipated Discharge Date Admission Date: October 21, 2024 Subjective Patient is seen and examined at bedside States feeling a lot better today Reports chronic back pain, unchanged Tolerating current diet No diarrhea today Denies any chest pain, dyspnea, abdominal pain, dysuria Review of Systems Review of Systems: All systems reviewed & are unremarkable except as noted in Subjective Physical Exam Physical Exam: Physical Exam: Vitals signs as noted above General Appearance:Obese, no apparent distress Head: normocephalic, Atraumatic Eyes: normal inspection, EOMI Neck: supple, Trachea midline Respiratory/Chest: Normal breath sounds, + basal crackles, No accessory muscle use Cardiovascular: S1, S2, +murmur Abdomen/GI:Soft, Non tender, Bowel sounds present Extremities/Musculoskeletal:normal inspection, + LE edema Neurologic/Psych:AAOX3, grossly no focal neurological deficits Skin: normal color, warm Results & Data Results & Data Vital Signs (Past 12 Hours) Vital Signs Temp Pulse Pulse Resp BP Pulse Ox O2 Del Method 10/23/24 11:05 36.8 C 72 20 107/65 94 Room Air 10/23/24 07:48 36.7 C 79 18 146/85 H 93 Room Air 10/23/24 05:29 62 10/23/24 03:45 36.9 C 68 18 126/59 L 93 Room Air Laboratory Results Short CBC 10/23/24 Range/Units 04:27 WBC 6.54 (4.8-10.8) K/ul Hgb 11.5 L (12.0-16.0) g/dl Hct 35.6 L (37.0-47.0) % Plt Count 168 (130-400) K/uL BMP 10/23/24 04:27 Sodium 141 Potassium 3.6 Chloride 113 H Carbon Dioxide 22 BUN 6 Creatinine 0.77 Glucose 82 Calcium 8.7 (7) CAD (coronary artery disease) Coronary Disease-Associated Artery/Lesion type: [place] artery [place] vs. transplanted heart: [place] heart Associated angina: without angina Qualified Code(s): I25.10 - Atherosclerotic heart disease of [place] coronary artery without angina pectoris (11) Abdominal aortic aneurysm Abdominal aorta location: unspecified Presence of rupture: without rupture Qualified Code(s): I71.40 - Abdominal aortic aneurysm, without rupture, unspecified
[2024-10-24 07:46] LABS: Anion Gap 7.0 (3-11); Blood Urea Nitrogen 9.0 mg/dl (6-23); Calcium 8.7 mg/dl (8.6-10.3); Carbon Dioxide 24.0 mmol/L (21-32); Chloride 111.0 mmol/L (98-107); Creatinine Clr Calc Pharmacy 48.4 ml/min; Glucose 75.0 mg/dl (70-99(Fasting)); Magnesium 1.9 mg/dl (1.7-2.4); Potassium 4.2 mmol/L (3.5-5.1); Sodium 142.0 mmol/L (136-145)
--- NOTE | 2024-10-24 15:59 | Hospitalist Progress Note ---
Date of Service October 24, 2024 Assessment & Plan (1) Diarrhea: Plan: Patient is a 89-year-old female with PMH HTN, dyslipidemia, CAD s/p RCA stent in 2006, pulmonary hypertension, HFpEF, CKD III, carotid stenosis, hypothyroidism, GERD, depression, anxiety, obesity, YUE, chronic back pain, h/o SBO 2022 treated conservatively presented to ER with c/o diarrhea x 2 days. Suspected viral gastroenteritis --CT ABD:No evidence of bowel obstruction. No evidence of free air. Multiple fluid-filled small bowel and colonic loops with air-fluid levels. The findings are consistent with a nonspecific enteritis. Surgically absent gallbladder, and uterus. Moderate hiatal hernia Colonic diverticulosis without evidence of acute diverticulitis -- Stool PCR, stool for C. difficile negative Received IV fluids Continue Metamucil Imodium as needed Tolerating regular diet No diarrhea today Not interested in rehab placement Prefers to be discharged home with home health Asymptomatic bacteriuria UA: +nitrite, 1+leuk esterase, 4+bacteria. Patient soiled with loose stool multiple times in ER Patient denies dysuria, hematuria. Reports chronic urinary frequency Urine culture not contributory Will hold off on antibiotics Nocturnal hypoxia Reviewed nocturnal oximetry study Continue supplemental oxygen at bedtime Needs supplemental oxygen arranged prior to discharge Hypokalemia Secondary to GI losses Replete and monitor Abnormal EKG Type II CO H/O CAD Moderate aortic stenosis --ECHO: Left ventricle systolic function is normal. EF 55 to 60%. Moderate valvular aortic stenosis. Mild aortic regurgitation. Mild mitral regurgitat ion. No change when compared to prior study. --Troponin trended down --continue ASA, plavix, statin, metoprolol, lisinopril, isosorbide Appreciate cardiology input (2) Hypokalemia: Plan: Hypoxia Interstitial lung disease Pulmonary hypertension --Chest CT:Cardiomegaly with evidence of pulmonary arterial hypertension. Progressively worsened chronic interstitial lung disease compared to the chest CT from 2009. There may also be a component of interstitial pulmonary edema. Trace right pleural effusion. Moderate sized hiatal hernia. Mild nonspecific mediastinal lymphadenopathy. 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 -- Needs follow-up with pulmonology as outpatient Obtain 2 step prior to discharge (3) Generalized weakness: Plan: Baseline ambulatory dysfunction and chronic imbalance with frequent falls reported. Uses walker at baseline Reported increased generalized weakness since diarrhea Treatment as above Fall precautions PT/OT eval: Recommends rehab--patient not interested in rehab placement Prefers to be discharged home with home health (4) CKD (chronic kidney disease), stage III: Plan: Creatinine at baseline Monitor renal function (5) Hypertension: Plan: Blood pressure stable Continue current medication (6) Dyslipidemia: Plan: Continue simvastatin (7) CAD (coronary artery disease): Plan: S/P RCA stent 2006 Continue aspirin, Plavix, isosorbide, simvastatin (8) Chronic heart failure with preserved ejection fraction (HFpEF): Plan: Resume home diuretics as able Monitor volume status Continue current medications (9) Pulmonary hypertension: Plan: Echo: EF 55 to 60%. Moderate valvular aortic stenosis. Mild aortic regurgitation. Mild mitral regurgitation. Unchanged compared to prior study in September 2024. Home diuretics on hold (10) Chronic back pain: Plan: On chronic hydrocodone acetaminophen, gabapentin (11) Abdominal aortic aneurysm: Plan: CT abdomen pelvis: There is a 4.8 cm infrarenal abdominal aortic aneurysm. Was 4.[address] scan 08/12/[address] [facility] vascular, Dr. Alatorre. Has upcoming follow-up appointment scheduled this fall (12) GERD (gastroesophageal reflux disease): Plan: Continue PPI (13) Hypothyroidism: Plan: Normal TSH Continue levothyroxine (14) YUE (obstructive sleep apnea): Plan: CPAP at bedtime (15) Anxiety and depression: Plan: Continue bupropion, fluoxetine Patient tearful and anxious talking about of 2 daughters and sister in the past 2 years Counseled Consider psychiatry evaluation if needed DVT Prophylaxis SQ Heparin CODE STATUS DNR/DNI Disposition Home with home health Admission and Anticipated Discharge Date Admission Date: October 21, 2024 Subjective Patient is seen and examined at bedside No new complaints Tolerating current diet Not interested in rehab placement Reports chronic back pain Denies any chest pain, dyspnea, abdominal pain, dysuria Review of Systems Review of Systems: All systems reviewed & are unremarkable except as noted in Subjective Physical Exam Physical Exam: Physical Exam: Vitals signs as noted above General Appearance:Obese, no apparent distress Head: normocephalic, Atraumatic Eyes: normal inspection, EOMI Neck: supple, Trachea midline Respiratory/Chest: Normal breath sounds, + basal crackles, No accessory muscle use Cardiovascular: S1, S2, +murmur Abdomen/GI:Soft, Non tender, Bowel sounds present Extremities/Musculoskeletal:normal inspection, + LE edema Neurologic/Psych:AAOX3, grossly no focal neurological deficits Skin: normal color, warm Results & Data Results & Data Vital Signs (Past 12 Hours) Vital Signs Temp Pulse Pulse Resp BP BP Pulse Ox 10/24/24 11:18 36.5 C 63 16 90/58 L 92/55 L 92 10/24/24 07:51 36.6 C 67 18 131/73 94 10/24/24 05:52 59 L O2 Del Method 10/24/24 11:18 Room Air 10/24/24 07:51 Room Air 10/24/24 05:52 Laboratory Results BMP 10/24/24 06:07 Sodium 142 Potassium 4.2 Chloride 111 H Carbon Dioxide 24 BUN 9 Creatinine 0.92 Glucose 75 Calcium 8.7 (7) CAD (coronary artery disease) Coronary Disease-Associated Artery/Lesion type: [place] artery [place] vs. transplanted heart: [place] heart Associated angina: without angina Qualified Code(s): I25.10 - Atherosclerotic heart disease of [place] coronary artery without angina pectoris (11) Abdominal aortic aneurysm Abdominal aorta location: unspecified Presence of rupture: without rupture Qualified Code(s): I71.40 - Abdominal aortic aneurysm, without rupture, unspecified
[2024-10-25 07:42] VITALS: TEMP 98.1
[2024-10-25 11:05] VITALS: BP 159/47; PULSE 61; RESP 18; O2SAT 95
--- NOTE | 2024-10-25 12:12 | Hospitalist Progress Note ---
Date of Service October 25, 2024 Assessment & Plan (1) Diarrhea: Plan: Patient is a 89-year-old female with PMH HTN, dyslipidemia, CAD s/p RCA stent in 2006, pulmonary hypertension, HFpEF, CKD III, carotid stenosis, hypothyroidism, GERD, depression, anxiety, obesity, YUE, chronic back pain, h/o SBO 2022 treated conservatively presented to ER with c/o diarrhea x 2 days. Suspected viral gastroenteritis --CT ABD:No evidence of bowel obstruction. No evidence of free air. Multiple fluid-filled small bowel and colonic loops with air-fluid levels. The findings are consistent with a nonspecific enteritis. Surgically absent gallbladder, and uterus. Moderate hiatal hernia Colonic diverticulosis without evidence of acute diverticulitis -- Stool PCR, stool for C. difficile negative Received IV fluids Continue Metamucil Imodium as needed Tolerating regular diet Diarrhea resolved Not interested in rehab placement Plan to be discharged home today Asymptomatic bacteriuria UA: +nitrite, 1+leuk esterase, 4+bacteria. Patient soiled with loose stool multiple times in ER Patient denies dysuria, hematuria. Reports chronic urinary frequency Urine culture not contributory Will hold off on antibiotics Nocturnal hypoxia Reviewed nocturnal oximetry study Continue supplemental oxygen at bedtime Needs supplemental oxygen arranged prior to discharge Has scheduled outpatient sleep study in November Hypokalemia Secondary to GI losses Replete and monitor Abnormal EKG Type II OK H/O CAD Moderate aortic stenosis --ECHO: Left ventricle systolic function is normal. EF 55 to 60%. Moderate valvular aortic stenosis. Mild aortic regurgitation. Mild mitral regurgitation. No change when compared to prior study. --Troponin trended down --continue ASA, plavix, statin, metoprolol, lisinopril, isosorbide Appreciate cardiology input (2) Hypokalemia: Plan: Hypoxia Interstitial lung disease Pulmonary hypertension --Chest CT:Cardiomegaly with evidence of pulmonary arterial hypertension. Progressively worsened chronic interstitial lung disease compared to the chest CT from 2009. There may also be a component of interstitial pulmonary edema. Trace right pleural effusion. Moderate sized hiatal hernia. Mild nonspecific mediastinal lymphadenopathy. 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 -- Needs follow-up with pulmonology as outpatient --2 step: Did not qualify for supplemental oxygen (3) Generalized weakness: Plan: Baseline ambulatory dysfunction and chronic imbalance with frequent falls reported. Uses walker at baseline Reported increased generalized weakness since diarrhea Treatment as above Fall precautions PT/OT eval: Recommends rehab--patient not interested in rehab placement Prefers to be discharged home with home health (4) CKD (chronic kidney disease), stage III: Plan: Creatinine at baseline Monitor renal function (5) Hypertension: Plan: Blood pressure stable Continue current medication (6) Dyslipidemia: Plan: Continue simvastatin (7) CAD (coronary artery disease): Plan: S/P RCA stent 2006 Continue aspirin, Plavix, isosorbide, simvastatin (8) Chronic heart failure with preserved ejection fraction (HFpEF): Plan: Resume home diuretics as able Monitor volume status Continue current medications (9) Pulmonary hypertension: Plan: Echo: EF 55 to 60%. Moderate valvular aortic stenosis. Mild aortic regurgitation. Mild mitral regurgitation. Unchanged compared to prior study in September 2024. Home diuretics on hold (10) Chronic back pain: Plan: On chronic hydrocodone acetaminophen, gabapentin (11) Abdominal aortic aneurysm: Plan: CT abdomen pelvis: There is a 4.8 cm infrarenal abdominal aortic aneurysm. Was 4.[address] scan 08/12/2022 Follows with [facility] vascular, Dr. Alatorre. Has upcoming follow-up appointment scheduled this fall (12) GERD (gastroesophageal reflux disease): Plan: Continue PPI (13) Hypothyroidism: Plan: Normal TSH Continue levothyroxine (14) YUE (obstructive sleep apnea): Plan: CPAP at bedtime (15) Anxiety and depression: Plan: Continue bupropion, fluoxetine Patient tearful and anxious talking about of 2 daughters and sister in the past 2 years Counseled Consider psychiatry evaluation if needed DVT Prophylaxis SQ Heparin CODE STATUS DNR/DNI Disposition Home with home health Admission and Anticipated Discharge Date Admission Date: October 21, 2024 Subjective Patient is seen and examined at bedside States feeling well today Offers no complaints Diarrhea resolved Tolerating regular diet Denies any chest pain, dyspnea, abdominal pain, dysuria Plan to be discharged home today Review of Systems Review of Systems: All systems reviewed & are unremarkable except as noted in Subjective Physical Exam Physical Exam: Physical Exam: Vitals signs as noted above General Appearance:Obese, no apparent distress Head: normocephalic, Atraumatic Eyes: normal inspection, EOMI Neck: supple, Trachea midline Respiratory/Chest: Normal breath sounds, + basal crackles, No accessory muscle use Cardiovascular: S1, S2, +murmur Abdomen/GI:Soft, Non tender, Bowel sounds present Extremities/Musculoskeletal:normal inspection, + LE edema Neurologic/Psych:AAOX3, grossly no focal neurological deficits Skin: normal color, warm Results & Data Results & Data Vital Signs (Past 12 Hours) Vital Signs Temp Pulse Pulse Pulse Pulse Pulse Resp 10/25/24 11:04 36.7 C 61 18 10/25/24 09:39 58 L 10/25/24 09:27 10/25/24 08:00 86 81 60 10/25/24 07:41 36.7 C 61 18 10/25/24 03:30 36.9 C 60 18 Resp Resp Resp BP BP Pulse Ox Pulse Ox 10/25/24 11:04 159/47 H 95 10/25/24 09:39 10/25/24 09:27 10/25/24 08:00 20 18 16 91 10/25/24 07:41 124/68 94 10/25/24 03:30 145/77 H 94 Pulse Ox Pulse Ox O2 Del Method 10/25/24 11:04 Room Air 10/25/24 09:39 10/25/24 09:27 Room Air 10/25/24 08:00 94 94 10/25/24 07:41 Room Air 10/25/24 03:30 Room Air (7) CAD (coronary artery disease) Associated angina: without angina Coronary Disease-Associated Artery/Lesion type: [place] artery [place] vs. transplanted heart: [place] heart Qualified Code(s): I25.10 - Atherosclerotic heart disease of [place] coronary artery without angina pectoris (11) Abdominal aortic aneurysm Abdominal aorta location: unspecified Presence of rupture: without rupture Qualified Code(s): I71.40 - Abdominal aortic aneurysm, without rupture, unspecified
--- NOTE | 2024-10-25 12:47 | Discharge Summary ---
Date of Service October 25, 2024 Admission HPI Per Admitting Provider Patient is a 89-year-old female with PMH HTN, dyslipidemia, CAD s/p RCA stent in 2006, pulmonary hypertension, HFpEF, CKD III, carotid stenosis, hypothyroidism, GERD, depression, anxiety, obesity, YUE, chronic back pain, h/o SBO 2022 treated conservatively presented to ER with c/o diarrhea x 2 days. Patients states for past 2 days with diffuse diarrhea occurring every hour. States nausea and dry heaves. One episode "white foam" emesis. Reports upper abdominal discomfort. Decreased oral intake. Denies ill contacts, recent travels. Lives home alone. Reports walks with walker at baseline. Reports chronic balance issues and frequent falls. States chronic mid and lower back pain and chronic right leg pain. States takes hydrocodone three times a day. She hasn't taken medications for over 24 hours secondary to nausea. Is requesting pain medication for her back pain. States back pain feels "how it normally does". Reports feels more weak than usual past day which she relates to diarrhea and poor oral intake. V obey anxious. Reports lost two daughters in past year and one last year on Labor day so the recent Labor day holiday was extra hard. Also reports of sister a year ago. She is reports is having a hard time mourning the loss of her family. Reports chronic vision changes and feels this is baseline. Nonproductive cough "just started". Denies SOB, rhinorrhea. Reports chronic BLE edema with right leg worse than left. Feels edema "how normally is". Denies recent antibiotic use. Denies history C-diff. Denies fever/chills, diaphoresis, melena, hematochezia, NIXON, dizziness, syncope, neck pain, CP, SOB, orthopnea, palpitations, hematemesis, sore throat, otalgia, rhinorrhea, paresthesias, weakness, extremity weakness, rashes, urinary symptoms. Admission Exam Per Admitting Provider General: +anxious and tearful, obese elderly femal Head: normocephalic, atraumatic Eyes: PERRL, EOM's intact, conjunctiva non-injected, anicteric ENT: normal inspection external ears, nose, mucous membranes mildly dry Neck: supple, trachea midline Lungs: clear, no respiratory distress, no wheezing/rhonchi/rales CV: RRR, trace pretibial edema Abd: normal BS, soft, +tenderness palpation epigastric and across upper abdomen without rebound or guarding Ext: no cyanosis, no calf tenderness Neuro: Alert, oriented x 3, no focal deficits noted, + anxious and tearful affect Skin: warm, dry, +scattered ecchymosis to extremities and chest Principal Diagnosis Viral gastroenteritis Asymptomatic bacteriuria Nocturnal hypoxia Hypokalemia Interstitial lung disease Discharge Data Allergies Allergy/AdvReac Type Severity Reaction Status Date / Time NSAIDS (Non-Steroidal Allergy Unknown IBUPROFEN/S Verified 08/12/22 08:31 Anti-Inflamma ULINDAC promethazine AdvReac Unknown "MADE ME Verified 08/12/22 08:31 WANT TO JUMP OUT OF MY SKIN" Consultations 10/21/24 12:18 ED Decision to Admit Stat 10/22/24 07:00 Consult Cardiology Routine Procedures Performed Laboratory Results WBC 6.54 K/ul (4.8-10.8) 10/23/24 04:27 RBC 3.57 M/uL (4.20-5.40) L 10/23/24 04:27 Hgb 11.5 g/dl (12.0-16.0) L 10/23/24 04:27 POC Hgb 11.9 g/dl (12.0-16.0) L 10/21/24 10:24 Hct 35.6 % (37.0-47.0) L 10/23/24 04:27 POC Hct 35 % (37-47) L 10/21/24 10:24 MCV 99.7 fL (80.0-100.0) 10/23/24 04:27 MCH 32.2 pg (25.0-34.0) 10/23/24 04:27 MCHC 32.3 g/dL (32.0-36.0) 10/23/24 04:27 RDW Std Deviation 49.8 fL (36.4-46.3) H 10/23/24 04:27 RDW Coeff of Juan Ramon 13.3 % (11.5-14.5) 10/23/24 04:27 Plt Count 168 K/uL (130-400) 10/23/24 04:27 MPV 10.1 fL (9.4-12.4) 10/23/24 04:27 Immature Gran % (Auto) 0.4 % 10/21/24 09:51 Neut % (Auto) 66.3 % 10/21/24 09:51 Lymph % (Auto) 18.8 % 10/21/24 09:51 Motley % (Auto) 11.6 % 10/21/24 09:51 Eos % (Auto) 2.8 % 10/21/24 09:51 Baso % (Auto) 0.1 % 10/21/24 09:51 Neut # (Auto) 5.30 K/uL (1.40-6.50) 10/21/24 09:51 Lymph # (Auto) 1.50 K/uL (1.20-3.40) 10/21/24 09:51 Motley # (Auto) 0.93 K/uL (0.11-0.59) H 10/21/24 09:51 Eos # (Auto) 0.22 K/uL (0.00-0.50) 10/21/24 09:51 Baso # (Auto) 0.01 K/uL (0.00-0.20) 10/21/24 09:51 Immature Gran # (Auto) 0.03 K/uL (0.01-0.20) 10/21/24 09:51 POC Sodium 143 mmol/L (135-144) 10/21/24 10:24 Sodium 142 mmol/L (136-145) 10/24/24 06:07 POC Potassium 3.0 mmol/L (3.3-5.0) L 10/21/24 10:24 Potassium 4.2 mmol/L (3.5-5.1) 10/24/24 06:07 POC Chloride 105 mmol/L (101-112) 10/21/24 10:24 Chloride 111 mmol/L (98-107) H 10/24/24 06:07 Carbon Dioxide 24 mmol/L (21-32) 10/24/24 06:07 POC Total CO2 24 mmol/L (24-31) 10/21/24 10:24 Anion Gap 7 (3-11) 10/24/24 06:07 POC Anion Gap 18.0 mmol/L (16-25) 10/21/24 10:24 POC BUN 13 mg/dl (7-18) 10/21/24 10:24 BUN 9 mg/dl (6-23) 10/24/24 06:07 Creatinine 0.92 mg/dl (0.6-1.2) 10/24/24 06:07 POC Creatinine 1.0 mg/dl (0.6-1.3) 10/21/24 10:24 Est Cr Clr Drug Dosing 48.4 ml/min 10/24/24 06:07 eGFR 59.89 10/24/24 06:07 BUN/Creatinine Ratio 9.8 (10-20) L 10/24/24 06:07 Glucose 75 mg/dl (70-99(Fasting)) 10/24/24 06:07 POC Glucose (other) 91 mg/dl (70-99) 10/21/24 10:24 Calcium 8.7 mg/dl (8.6-10.3) 10/24/24 06:07 POC Ioniz Calcium Carl 1.14 mmol/l (1.12-1.32) 10/21/24 10:24 Magnesium 1.9 mg/dl (1.7-2.4) 10/24/24 06:07 Total Bilirubin 0.5 mg/dl (0.2-1.0) 10/21/24 09:51 AST 17 U/L (13-39) 10/21/24 09:51 ALT 11 U/L (7-52) 10/21/24 09:51 Alkaline Phosphatase 67 U/L (34-104) 10/21/24 09:51 Troponin I High Sens 52.2 pg/ml (0-14) H* D 10/22/24 06:52 Total Protein 6.8 gm/dl (6.0-8.3) 10/21/24 09:51 Albumin 3.7 gm/dl (3.4-5.0) 10/21/24 09:51 Globulin 3.1 gm/dl (2.5-4.0) 10/21/24 09:51 Albumin/Globulin Ratio 1.2 (0.9-2) 10/21/24 09:51 Triglycerides 97 mg/dl (0-150) 10/22/24 06:52 Cholesterol 87 mg/dl (0-200) 10/22/24 06:52 LDL Cholesterol, Calc 32 mg/dl 10/22/24 06:52 VLDL Cholesterol, Calc 19 mg/dl (0-30) 10/22/24 06:52 HDL Cholesterol 36 mg/dl 10/22/24 06:52 Cholesterol/HDL Ratio 2.4 (0-5) 10/22/24 06:52 Lipase 38 U/L (11-82) 10/21/24 09:51 TSH 1.820 uIu/ml (0.300-4.500) 10/22/24 06:52 Urine Color Yellow 10/21/24 15:00 Urine Appearance Clear (Clear) 10/21/24 15:00 Urine pH 6.5 (4.5-7.5) 10/21/24 15:00 Ur Specific [place] 1.042 (1.000-1.030) H 10/21/24 15:00 Urine Protein Trace (Negative) H 10/21/24 15:00 Urine Glucose (UA) Negative (Negative) 10/21/24 15:00 Urine Ketones 1+ (Negative) H 10/21/24 15:00 Urine Blood 1+ (Negative) H 10/21/24 15:00 Urine Nitrite Positive (Negative) A 10/21/24 15:00 Urine Bilirubin Negative (Negative) 10/21/24 15:00 Urine Urobilinogen Negative (Negative) 10/21/24 15:00 Ur Leukocyte Esterase 1+ (Negative) H 10/21/24 15:00 Urine WBC (Auto) 0-5 /hpf (0-5) 10/21/24 15:00 Urine RBC (Auto) 0-2 /hpf (0-2) 10/21/24 15:00 U Hyaline Cast (Auto) 0-2 /lpf (0-2) 10/21/24 15:00 U Epithel Cells (Auto) 0-2 /hpf (0-2) 10/21/24 15:00 Urine Bacteria (Auto) 4+ (None Seen) H 10/21/24 15:00 Urine Comment 10/21/24 15:00 Stl C. cayetanensis PCR Not Detected (NotDetected) 10/21/24 17:04 Stool Rotavirus A PCR Not Detected (NotDetected) 10/21/24 17:04 Stl Adenov F 40/41 PCR Not Detected (NotDetected) 10/21/24 17:04 Stool Astrovirus (PCR) Not Detected (NotDetected) 10/21/24 17:04 Stool Campylobacter PCR Not Detected (NotDetected) 10/21/24 17:04 Stl C. diff Tox B Gene Negative Cdiff Gene (Neg) 10/21/24 17:04 Stl C. diff 027-NAP1-BI NEGATIVE 10/21/24 17:04 Stool Cryptosporidium PCR Not Detected (NotDetected) 10/21/24 17:04 Stl E.coli Shiga Tox PCR Not Detected (NotDetected) 10/21/24 17:04 Stl Enterotoxigenic E PCR Not Detected (NotDetected) 10/21/24 17:04 Stool EPEC (PCR) Not Detected (NotDetected) 10/21/24 17:04 Stool EAEC (PCR) Not Detected (NotDetected) 10/21/24 17:04 Stl E. histolytica PCR Not Detected (NotDetected) 10/21/24 17:04 Stool Giardia Lamblia PCR Not Detected (NotDetected) 10/21/24 17:04 Stool Salmonella PCR Not Detected (NotDetected) 10/21/24 17:04 Stool Sapovirus (PCR) Not Detected (NotDetected) 10/21/24 17:04 Stl P. shigelloides PCR Not Detected (NotDetected) 10/21/24 17:04 Stl Shigella/EIEC PCR Not Detected (NotDetected) 10/21/24 17:04 St Y.enterocolitica PCR Not Detected (NotDetected) 10/21/24 17:04 Stool Vibrio (PCR) Not Detected (NotDetected) 10/21/24 17:04 Stl Vibrio cholerae PCR Not Detected (NotDetected) 10/21/24 17:04 Stl Norovirus GI/GII PCR Not Detected (NotDetected) 10/21/24 17:04 Impressions Abdomen/Pelvis CT 10/21/24 10:11 CT SCAN OF THE ABDOMEN AND PELVIS WITH IV CONTRAST CLINICAL HISTORY: Abdominal pain and diarrhea. COMPARISON STUDY: 08/12/2022 TECHNIQUE: Following the IV administration of 93 cc of Optiray 320, CT scan of the abdomen and pelvis is performed from the lung bases to the proximal femora. Images are reviewed in the axial, sagittal, and coronal planes. IV contrast was administered without complication. A dose lowering technique was utilized adhering to the principles of ALARA. CT DOSE: 1300.15 mGy.cm FINDINGS: Lung bases: There are coronary artery calcifications. There is subpleural reticulation suggesting underlying interstitial lung disease. This appears slightly progressive. There is a hiatal hernia. Liver: There is mild intrahepatic biliary ductal prominence similar to the prior study. There is mild dilatation the common bile duct. This may be secondary to a prior cholecystectomy. No hepatic masses are visualized. Gallbladder: Surgically absent Spleen: No splenic masses identified Pancreas: No pancreatic masses identified. No ductal dilatation. 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 No solid renal masses are visualized. There is no significant hydronephrosis. Abdominal vasculature: There is a 4.8 cm infrarenal abdominal aortic aneurysm. Bowel: There are fluid-filled colonic and small bowel loops. There are no transition zones to indicate bowel obstruction. There are scattered colonic di verticula. There are no significant peridiverticular inflammatory changes. There are scattered small bowel and colonic air-fluid levels. The appendix was not visualized with certainty. There are no pericecal inflammatory changes. Peritoneum: There is no ascites. There is no free intraperitoneal air. Lymphadenopathy: There are no pathologically enlarged abdominal or pelvic lymph nodes. Pelvic viscera: The patient is status post a prior hysterectomy. No abnormal adnexal masses are visualized. Skeletal structures: Degenerative changes are present within the spine and hips. There are no suspicious lytic or blastic skeletal lesions. Intraspinal gas is likely secondary to degenerative spine disease. IMPRESSION: 1. No evidence of bowel obstruction. No evidence of free air 2. Multiple fluid-filled small bowel and colonic loops with air-fluid levels. The findings are consistent with a nonspecific enteritis. 3. Surgically absent gallbladder, and uterus. 4. Moderate hiatal hernia 5. Colonic diverticulosis without evidence of acute diverticulitis ACT 112: Negative or not required by law. Electronically signed by: Bo Leon M.D. 10/21/2024 11:31 AM Chest X-Ray 10/21/24 12:07 XR chest 1V portable CLINICAL HISTORY: vomiting COMPARISON STUDY: 01/01/2013 FINDINGS: The heart is mildly enlarged. There is aortic tortuosity/ectasia. There is elevation of the interstitium with suspected reticulation. The findings suggest underlying interstitial lung disease, although interstitial edema could appear similar. Basilar opacities are likely atelectatic. There is no lobar consolidation. There are no significant pleural effusions. IMPRESSION: 1. Mild cardiomegaly 2. Elevation of the interstitium. Pulmonary vascular congestion versus interstitial lung disease. 3. No evidence of lobar consolidation 5. Presumed mild basilar atelectatic change ACT 112: Negative or not required by law. Electronically signed by: Bo Leon M.D. 10/21/2024 12:[address] 10/22/24 14:12 CT chest diagnostic wo con CT DOSE: 914.42 mGy.cm CLINICAL HISTORY: 89 years-old Female with ? interstitial lung disease, Hypoxia. Chronic shortness of breath with hypoxia TECHNIQUE: Multiaxial CT images of the chest were performed without contrast. A dose lowering technique was utilized adhering to the principles of ALARA. COMPARISON: Chest radiograph 10/21/2024, CTA chest 06/18/2009 FINDINGS: No thyroid nodule. Borderline enlarged mediastinal lymph nodes measure up to 10 mm, new from prior. Mild cardiomegaly with decreased attenuation of the cardiac blood pool compatible with anemia. Extensive coronary artery calcifications. Atherosclerosis with mild fusiform dilation of the ascending th oracic aorta, 4.1 x 4.1. This previously measured 3.7 cm. The main pulmonary artery measures up to 4 cm transversely. Mild right hemidiaphragmatic elevation. Trace right pleural effusion. There is i ntralobular septal thickening with progressive reticular interstitial opacities of the lungs, right greater than left compared to the 2009 study. No significant bronchiectasis or honeycombing. No pneumothorax, suspicious pulmonary nodule or lobar airspace consolidation typical for pneumonia. Central airways appear patent. Moderate-sized hiatal hernia. Ill-defined hyperdensity in the superior pole collecting system right kidney may represent contrast versus calculus. Unremarkable soft tissues. No acute fracture. IMPRESSION: 1. Cardiomegaly with evidence of pulmonary arterial hypertension. 2. Progressively worsened chronic interstitial lung disease compared to the chest CT from 2009. There may also be a component of interstitial pulmonary edema. 3. Trace right pleural effusion. 4. Moderate sized hiatal hernia. 5. Mild nonspecific mediastinal lymphadenopathy. 6. 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 ACT 112: Negative or not required by law. Electronically signed by: Mathew Dolan M.D. 10/22/2024 3:37 PM Ordered Studies 10/21/24 10:11 CT abd pelvis IV con only Stat 10/22/24 14:12 CT chest diagnostic wo con Urgent Hospital Course (1) Diarrhea: Patient is a 89-year-old female with PMH HTN, dyslipidemia, CAD s/p RCA stent in 2006, pulmonary hypertension, HFpEF, CKD III, carotid stenosis, hypothyroidism, GERD, depression, anxiety, obesity, YUE, chronic back pain, h/o SBO 2022 treated conservatively presented to ER with c/o diarrhea x 2 days. Suspected viral gastroenteritis --CT ABD:No evidence of bowel obstruction. No evidence of free air. Multiple fluid-filled small bowel and colonic loops with air-fluid levels. The findings are consistent with a nonspecific enteritis. Surgically absent gallbladder, and uterus. Moderate hiatal hernia Colonic diverticulosis without evidence of acute diverticulitis -- Stool PCR, stool for C. difficile negative Received IV fluids Continue Metamucil Imodium as needed Tolerating regular diet Diarrhea resolved Not interested in rehab placement Plan to be discharged home today Asymptomatic bacteriuria UA: +nitrite, 1+leuk esterase, 4+bacteria. Patient soiled with loose stool multiple times in ER Patient denies dysuria, hematuria. Reports chronic urinary frequency Urine culture not contributory Will hold off on antibiotics Nocturnal hypoxia Reviewed nocturnal oximetry study Continue supplemental oxygen at bedtime Needs supplemental oxygen arranged prior to discharge Has scheduled outpatient sleep study in November Hypokalemia Secondary to GI losses Replete and monitor Abnormal EKG Type II ND H/O CAD Moderate aortic stenosis --ECHO: Left ventricle systolic function is normal. EF 55 to 60%. Moderate valvular aortic stenosis. Mild aortic regurgitation. Mild mitral regurgitation. No change when compared to prior study. --Troponin trended down --continue ASA, plavix, statin, metoprolol, lisinopril, isosorbide Appreciate cardiology input (2) Hypokalemia: Hypoxia Interstitial lung disease Pulmonary hypertension --Chest CT:Cardiomegaly with evidence of pulmonary arterial hypertension. Progressively worsened chronic interstitial lung disease compared to the chest C T from 2009. There may also be a component of interstitial pulmonary edema. Trace right pleural effusion. Moderate sized hiatal hernia. Mild nonspecific mediastinal lymphadenopathy. 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 -- Needs follow-up with pulmonology as outpatient --2 step: Did not qualify for supplemental oxygen (3) Generalized weakness: Baseline ambulatory dysfunction and chronic imbalance with frequent falls reported. Uses walker at baseline Reported increased generalized weakness since diarrhea Treatment as above Fall precautions PT/OT eval: Recommends rehab--patient not interested in rehab placement Prefers to be discharged home with home health (4) CKD (chronic kidney disease), stage III: Creatinine at baseline Monitor renal function (5) Hypertension: Blood pressure stable Continue current medication (6) Dyslipidemia: Continue simvastatin (7) CAD (coronary artery disease): S/P RCA stent 2006 Continue aspirin, Plavix, isosorbide, simvastatin (8) Chronic heart failure with preserved ejection fraction (HFpEF): Resume home diuretics as able Monitor volume status Continue current medications (9) Pulmonary hypertension: Echo: EF 55 to 60%. Moderate valvular aortic stenosis. Mild aortic regurgitation. Mild mitral regurgitation. Unchanged compared to prior study in September 2024. Home diuretics on hold (10) Chronic back pain: On chronic hydrocodone acetaminophen, gabapentin (11) Abdominal aortic aneurysm: CT abdomen pelvis: There is a 4.8 cm infrarenal abdominal aortic aneurysm. Was 4.[address] scan 08/12/2022 Follows with [facility] vascular, Dr. Alatorre. Has upcoming follow-up appointment scheduled this fall (12) GERD (gastroesophageal reflux disease): Continue PPI (13) Hypothyroidism: Normal TSH Continue levothyroxine (14) YUE (obstructive sleep apnea): CPAP at bedtime (15) Anxiety and depression: Continue bupropion, fluoxetine Patient tearful and anxious talking about of 2 daughters and sister in the past 2 years Counseled Consider psychiatry evaluation if needed DVT Prophylaxis SQ Heparin CODE STATUS DNR/DNI Disposition Home with home health Total Time Total Time Spent Total Time Spent (In Minutes): 48 minutes Discharge Plan Discharge Items Patient Disposition: Home - Home Health Services Reason For Visit: DIARRHEA Discharge Diagnosis: Viral gastroenteritis Asymptomatic bacteriuria Nocturnal hypoxia Hypokalemia Interstitial lung disease Condition on Discharge: Fair Activity: Per Instructions section Exercise/Sports: Gradually increase as tolerated Non-emergency contact: Primary Care Provider and Invasive Cardiologist Call non-emergency contact if: you have any medication questions, your symptoms worsen, your pain is concerning for you and you have a fever Follow-up/Referrals: Surya Fowler MD [Primary Care Provider] - Diet: Heart Healthy Addtl Attending Provider Instructions: -- Follow-up with your primary care physician Dr. Fowler in 1 week -- Follow-up with your mastic worker in 3 to [address] scan is suggestive worsening interstitial lung disease. -- Use supplemental oxygen 2 L at bedtime along with CPAP. Seek immediate medical attention if your symptoms reoccur or worsen Please review medication list provided on discharge for any medication changes as instructed. Please call if you have any questions or problems. You can reach a [facility] hospitalist on duty at [facility] 24 hours a day by calling [phone] Pending Studies at Discharge: No Stand-Alone Forms: My [facility], Smoking Cessation Medications and DC Order Prescriptions: New psyllium husk [Metamucil] 0.4 gram capsule 0.4 g PO DAILY Qty: 30 0RF Continued cyanocobalamin (vitamin B-12) [Vitamin B-12] 1,000 mcg Tablet 1,000 mcg PO Q OTHER DAY potassium chloride [Klor-Con 10] 10 mEq tablet extended release 10 meq PO DAILY clopidogrel [Plavix] 75 mg tablet 75 mg PO DAILY simvastatin [Zocor] 40 mg tablet 40 mg PO HS isosorbide mononitrate 60 mg tablet extended release 24 hr 60 mg PO QAM nitroglycerin [Nitrostat] 0.4 mg Tablet, Sublingual 0.4 mg sublingual UD MDD 3 doses PRN (Reason: Chest Pain) Rx Instructions: place 1 tab under tongue as needed for chest pain gabapentin [Neurontin] 300 mg capsule 300 mg PO TID omeprazole 20 mg capsule,delayed release(DR/EC) 20 mg PO DAILYBB metoprolol succinate [Toprol XL] 25 mg tablet extended release 24 hr 12.5 mg PO DAILY cholecalciferol (vitamin D3) [Vitamin D3] 1,000 unit Capsule 2,000 unit PO DAILY aspirin 81 mg Tablet,Delayed Release (Dr/Ec) 81 mg PO DAILY hydrocodone-acetaminophen 10-325 mg Tablet 1 tab PO Q6H MDD 3 per day PRN (Reason: Pain) diclofenac sodium 1 % Gel 2 g TOPICAL QID PRN (Reason: each hand arthritis pain) fluoxetine 40 mg capsule 40 mg PO BID Rx Instructions: takes in morning and afternoon bupropion HCl 200 mg tablet sustained-release 12 hr 200 mg PO DAILY furosemide 40 mg tablet 40 mg PO DAILY levothyroxine 100 mcg tablet 100 mcg PO DAILY lisinopril 5 mg tablet 2.5 mg PO DAILY Discharge Orders: Discharge Order (Routine); Ordered 10/25/24 Ordered By: Shahid Shelton Admission Data Admit Date/Time: 10/21/24 12:42 Attending Provider: Shahid Shelton Admit Provider: Lilia Hernandez Primary Care Provider: Surya Fowler Other Providers: Lilia Hernandez
== END 2024-10-25 14:06 | disposition home health service (06) | DRG 391 ==
LOC: ED 10:05 → EDINP 12:42 → SUATTDRO 12:42 → 2N 13:49